=== PATIENT | male | born 1975 | race Caucasian/White ===

== ENCOUNTER → 2017-10-13 | Outpatient (CLI) | payer MEDICAID ==
--- NOTE | 2017-10-13 16:41 | US ---
EXAMINATION TYPE: US kidneys/renal and bladder DATE OF EXAM: 10/13/2017 COMPARISON: US CLINICAL HISTORY: R80.9 Proteinuria; left flank pain x months EXAM MEASUREMENTS: Right Kidney: 11.0 x 5.9 x 4.5 cm Left Kidney: 10.6 x 5.5 x 6.0 cm Post Void Residual Volume: 7.3 mL Right Kidney: No hydronephrosis or masses seen Left Kidney: No hydronephrosis or masses seen Bladder: wnl Bilateral Jets seen: Yes Normal Post Void Residual: Yes There is no evidence for hydronephrosis at this point in time. No nephrolithiasis is seen. No shannon s are identified. The urinary bladder is anechoic. Bilateral ureteral jets are seen. IMPRESSION: No evidence of renal mass or obstruction. Postvoid estimated bladder volume is 17 mL.
== END | disposition home or self-care (01) ==
LOC: RADUSWWP 15:46
PROVIDERS: ATTEND Family Medicine
DX: R80.9 Proteinuria, unspecified (principal)
CPT/HCPCS: 76770

== ENCOUNTER → 2018-01-26 | Outpatient (CLI) | payer OTHER ==
--- NOTE | 2018-01-26 15:53 | XR ---
Right clavicle HISTORY: Trauma and pain 2 views of the right clavicle There is a mid diaphyseal right clavicle fracture with bayonet apposition. Right lung apex as visuali zed is normal. IMPRESSION: Mid diaphyseal right clavicular fracture
== END | disposition home or self-care (01) ==
LOC: RADXRMAIN 15:31
PROVIDERS: ATTEND Internal Medicine
DX: S42.021A Displaced fracture of shaft of right clavicle, initial encounter for closed fracture (principal)

== ENCOUNTER 2018-07-22 15:50 | Emergency (ER) | payer OTHER ==
[2018-07-22 15:57] VITALS: RESP 18
--- NOTE | 2018-07-22 16:19 | ED ---
General Adult HPI - General Source: patient, EMS, RN notes reviewed, old records reviewed Mode of arrival: EMS Limitations: no limitations <Cristian Henriquez - Last Filed: 07/23/18 00:23> <Esteban Foster - Last Filed: 07/23/18 09:50> - General Stated complaint: Chest pain - History of Present Illness Initial comments: Chief complaint and history of present illness a 42-year-old male here for complaint of right-sided chest pain. The patient reports this started at 4 AM yesterday morning. Patient reports he had the pain control at time he received a sublingual nitroglycerin by EMS. Patient denies any injuries. His pain is very reproducible with a deep breath patient or coughing to the right anterior axillary line around approximately rib 89 or 10. Patient denies any injuries or falling. The patient also reports that he drinks one fifth of alcohol daily. His breath alcohol is 0.371. He otherwise alert and oriented. ( Cristian Henriquez) - Related Data Previous Rx's Medication Instructions Recorded Famotidine [Pepcid] 40 mg PO DAILY #30 tab 08/01/17 Gabapentin [Neurontin] 400 mg PO TID #90 cap 08/01/17 Naltrexone HCl [Revia] 50 mg PO DAILY #30 tab 08/01/17 Naproxen [Naprosyn] 500 mg PO BID #60 tab 08/01/17 Nicotine 21Mg/24Hr Patch [Habitrol] 1 patch TRANSDERM DAILY #30 patch 08/01/17 PARoxetine [Paxil] 40 mg PO DAILY #30 tab 08/01/17 busPIRone HCl [Buspar] 10 mg PO TID #90 tab 08/01/17 hydrOXYzine PAMOATE [Vistaril] 25 mg PO TID PRN #90 cap 08/01/17 traZODone HCL [Desyrel] 150 mg PO HS #30 tab 08/01/17 Allergies Allergy/AdvReac Type Severity Reaction Status Date / Time No Known Allergies Allergy Verified 07/22/18 15:58 Review of Systems ROS Other: All systems not noted in ROS Statement are negative. <Cristian Henriquez - Last Filed: 07/23/18 00:23> ROS Other: All systems not noted in ROS Statement are negative. <Esteban Foster - Last Filed: 07/23/18 09:50> ROS Statement: Those systems with pertinent positive or pertinent negative responses have been documented in the HPI. Review of systems. Patient's denying any headache no visual acuity changes no neck pain no dizziness. States she's had chest pain since 4 AM yesterday. Denies injury. Point specific to palm-sized area to the right anterior axillary line mid chest field. No bruises are noted on direct observation. He reports a deep breath increases the pain splinting does not change it. Denies any productive cough or fever of late. Denies back pain denies nausea vomiting diarrhea otherwise no radiation of chest pain. No sweats with this chest pain. But he does note that the pain subsided after a sublingual nitroglycerin. All systems are reviewed. Past medical problems hypertension for which he does not take any medications. Does not give a reason as to why he is not taking them. Past history also includes heroin abuse which he denies having done lately. He denies any surgeries. Family history his mother had kidney cancer. The patient does smoke heavily strongly encouraged to stop. He does report drinking a fifth of alcohol daily. The patient states she's been through rehab 7 times. (Cristian Henriquez) Past Medical History Past Medical History: Hypertension Additional Past Medical History / Comment(s): ETOH abuse, alcohol withdrawal with seizure 2014, Pt states recently told he has a "black spot" he believes on L lung which showed on a recent cat scan done in [facility]-he was to follow up but did not, chronic back pain. History of Any Multi-Drug Resistant Organisms: MRSA Date of last positivie culture/infection: 2004 MDRO Source:: left antecubital space secondary to heroine use Past Surgical History: No Surgical Hx Reported Additional Past Surgical History / Comment(s): Nasal surgery at the age of 11 yrs, cyst removed from LAC. Past Anesthesia/Blood Transfusion Reactions: No Reported Reaction Past Psychological History: Anxiety, Depression, Panic Disorder Smoking Status: Current every day smoker Past Alcohol Use History: Abuse, Daily, Heavy Past Drug Use History: None Reported - Past Family History Father Additional Family Medical History / Comment(s): father and his brothers ETOH hx Mother Family Medical History: Cancer Additional Family Medical History / Comment(s): Mother of renal cancer at the age of 60yrs. <Cristian Henriquez - Last Filed: 07/23/18 00:23> General Exam Limitations: no limitations <MartinezCristian - Last Filed: 07/23/18 00:23> <Esteban Foster - Last Filed: 07/23/18 09:50> - General Exam Comments Initial Comments: General: The patient is awake and alert, para complaint right-sided chest pain ongoing since 4 AM yesterday morning. Reproducible with palpation coughing and deep breathing. Vital signs show temperature 98.6 pulse 104 respiratory rate 18 pulse ox 97% room air blood pressure 122/97. Eye: Pupils are equal, round and reactive to light, extra-ocular movements are intact ; there is normal conjunctiva bilaterally. No signs of icterus. Ears, nose, mouth and throat: There are moist mucous membranes and no oral lesions. Neck: The neck is supple, there is no tenderness, no anterior cervical lymphadenopathy , thyroid not enlarged. Cardiovascular: There is a regular rate and rhythm. No murmur, rub or gallop is appreciated. Respiratory: Pain to the right side of the chest which increases with outpatient increases significantly with coughing or very deep breathing. Does not decrease with splinting the area. No rash noted over the area no bruising noted over the area. Auscultation of lungs on the left normal. Auscultations on the right side , bronchovesicular. Patient splints on the right side because of pain with deep breathing and coughing. Gastrointestinal: Soft, non-distended, non-tender abdomen without masses or organomegaly noted. There is no rebound or guarding present. No CVA tenderness. Bowel sounds are unremarkable. Back: There is no tenderness to palpation in the midline. There is no obvious deformity. No rashes noted. Musculoskeletal: Normal ROM, no tenderness, There is no pedal edema. There is no calf tenderness or swelling. Sensation intact. Neurological: No neuro deficits noted none complained of. Patient's chronic alcoholic. Drinks a fifth of alcohol daily. He had answers questions appropriately without difficulty. Denies any balance problems. breath alcohol at bedside was 0.371. Skin: Skin is warm and dry and no rashes or lesions are noted. Psychiatric: Cooperative, has history of depression, states he is having suicidal thoughts. (Cristian Henriquez) Course <Cristian Henriquez - Last Filed: 07/23/18 00:23> <Esteban Foster - Last Filed: 07/23/18 09:50> Vital Signs 07/22/18 07/22/18 07/22/18 15:53 18:00 19:00 Temperature 98.6 F Pulse Rate 104 H 88 88 Respiratory 18 18 18 Rate Blood Pressure 122/97 147/87 138/87 O2 Sat by Pulse 97 99 99 Oximetry 07/22/18 07/22/18 07/22/18 20:39 22:27 23:21 Temperature 98.2 F Pulse Rate 89 87 100 Respiratory 18 18 18 Rate Blood Pressure 172/108 133/100 142/97 O2 Sat by Pulse 100 98 95 Oximetry - Reevaluation(s) Reevaluation #1: 07/23/18 09:48 The patient rested comfortably throughout the morning he was evaluated by the psychiatric service he currently is not suicidal or homicidal be discharged ( Esteban Foster) EKG Findings - EKG Comments: EKG Findings:: EKG was done and reviewed at 1610 showing normal sinus rhythm no acute ST elevation no ectopy no ischemic changes. Rate 93 MN interval is 134 QRS 78 QT 368 QTc 457. Currently no old EKG to compare to. Dr. Henriquez <Cristian Henriquez - Last Filed: 07/23/18 00:23> Medical Decision Making - Lab Data Result diagrams: 07/22/18 16:10 07/22/18 16:10 <Cristian Henriquez - Last Filed: 07/23/18 00:23> - Lab Data Result diagrams: 07/22/18 16:10 07/22/18 16:10 <Esteban Foster - Last Filed: 07/23/18 09:50> - Medical Decision Making Medical decision making; 42-year-old male here for complaint of right-sided chest pain which is reproducible by deep breathing coughing and palpation. Patient denies any recent trauma. Patient has chronic alcohol abuse. States he drinks one fifth of alcohol daily. Splint for rehab 7 times. Current breath alcohol at bedside is 0.371. The patient's answering questions appropriately. Patient's labs show white count of 8.4 hemoglobin 14 hematocrit of 45 with a potassium 3.8. BUN 6 creatinine 0.55 the GFR greater than 90. AST ALT elevated. Drug urine triage positive for marijuana. CK-MB and troponin normal. Chest x-ray was done reviewed by radiologist his impression is;fracture of the right fourth rib minimally displaced with no pneumothorax. As read by Dr. Wilson. D-dimer elevated at 1.41. CT of the chest was done to rule out PE. The radiologist's findings include the lungs are clear consolidation. There is no evidence of pulmonary mass. There is no pleural effusion. Heart size is normal. There is no pericardial effusion. There are small linear density at the lung bases consistent with subsegmental atelectasis. There are small interstitial infiltrates the right posterior lung base. There is a fatty infiltration of the liver. There is no hilar masses. There is no mediastinal adenopathy. There is normal contrast opacification of the pulmonary arteries. There is no filling defects. Thoracic aorta shows normal size. There is no aneurysm or dissection. Bony thorax appears intact. Impression mild interstitial infiltrate and atelectasis at the lung bases and more on the right side. Fatty infiltration of the liver. No evidence of pulmonary embolism. As read by Dr. Yin Discuss acute rib fracture. as well as a CAT scan. The patient may also be having pleuritic irritation as evidenced by the discomfort he has even while splinting the area. The patient denies being suicidal or depressed this time. The plans for the patient to be placed on antibiotic for possible early infiltrate is noted on the CAT scan. Patient advised to curtail his drinking, consider rehab one more time. Or Alcoholics Anonymous. Otherwise follow-up with family physician and also consider stopping smoking. Patient was given his first dose of Levaquin in the emergency room. Patient will be seen by psychiatric nurse at 8 AM when his breath alcohol level drops to 0.08. I discussed with the patient at length pleuritic pain and the possibility of early small pneumonic infiltrate. The plan for the patient be placed on Levaquin as an outpatient should he be discharged after talking to a psychiatric nurse or if hospitalized patient will be kept on Levaquin while in house. Again the patient this time is denying thoughts of harming himself. Patient did receive Ativan per alcohol protocol (Cristian Henriquez) - Lab Data Lab Results 07/22/18 07/22/18 07/22/18 Range/Units 16:10 16:10 16:10 WBC 8.4 (3.8-10.6) k/uL RBC 4.69 (4.30-5.90) m/uL Hgb 14.5 (13.0-17.5) gm/dL Hct 45.6 (39.0-53.0) % MCV 97.2 (80.0-100.0) fL MCH 30.8 (25.0-35.0) pg MCHC 31.7 (31.0-37.0) g/dL RDW 13.8 (11.5-15.5) % Plt Count 288 (150-450) k/uL Neutrophils % 55 % Lymphocytes % 33 % Monocytes % 5 % Eosinophils % 2 % Basophils % 1 % Neutrophils # 4.6 (1.3-7.7) k/uL Lymphocytes # 2.7 (1.0-4.8) k/uL Monocytes # 0.4 (0-1.0) k/uL Eosinophils # 0.2 (0-0.7) k/uL Basophils # 0.1 (0-0.2) k/uL PT (9.0-12.0) sec INR (<1.2) APTT (22.0-30.0) sec D-Dimer (<0.60) mg/L FEU Sodium 144 (137-145) mmol/L Potassium 3.8 (3.5-5.1) mmol/L Chloride 107 (98-107) mmol/L Carbon Dioxide 26 (22-30) mmol/L Anion Gap 11 mmol/L BUN 6 L (9-20) mg/dL Creatinine 0.55 L (0.66-1.25) mg/dL Est GFR (CKD-EPI)AfAm >90 (>60 ml/min/1.73 sqM) Est GFR (CKD-EPI)NonAf >90 (>60 ml/min/1.73 sqM) Glucose 92 (74-99) mg/dL Calcium 8.9 (8.4-10.2) mg/dL Magnesium 1.9 (1.6-2.3) mg/dL Total Bilirubin 0.4 (0.2-1.3) mg/dL AST 179 H (17-59) U/L ALT 102 H (21-72) U/L Alkaline Phosphatase 70 (38-126) U/L Total Creatine Kinase 45 L (55-170) U/L CK-MB (CK-2) <0.2 (0.0-2.4) ng/mL CK-MB (CK-2) Rel Index Troponin I <0.012 (0.000-0.034) ng/mL Total Protein 6.8 (6.3-8.2) g/dL Albumin 4.1 (3.5-5.0) g/dL Urine Opiates Screen (NotDetected) Ur Oxycodone Screen (NotDetected) Urine Methadone Screen (NotDetected) Ur Propoxyphene Screen (NotDetected) Ur Barbiturates Screen (NotDetected) U Tricyclic Antidepress (NotDetected) Ur Phencyclidine Scrn (NotDetected) Ur Amphetamines Screen (NotDetected) U Methamphetamines Scrn (NotDetected) U Benzodiazepines Scrn (NotDetected) Urine Cocaine Screen (NotDetected) U Marijuana (THC) Screen (NotDetected) 07/22/18 07/22/18 Range/Units 16:10 16:10 WBC (3.8-10.6) k/uL RBC (4.30-5.90) m/uL Hgb (13.0-17.5) gm/dL Hct (39.0-53.0) % MCV (80.0-100.0) fL MCH (25.0-35.0) pg MCHC (31.0-37.0) g/dL RDW (11.5-15.5) % Plt Count (150-450) k/uL Neutrophils % % Lymphocytes % % Monocytes % % Eosinophils % % Basophils % % Neutrophils # (1.3-7.7) k/uL Lymphocytes # (1.0-4.8) k/uL Monocytes # (0-1.0) k/uL Eosinophils # (0-0.7) k/uL Basophils # (0-0.2) k/uL PT 9.7 (9.0-12.0) sec INR 0.9 (<1.2) APTT 22.6 (22.0-30.0) sec D-Dimer 1.41 H (<0.60) mg/L FEU Sodium (137-145) mmol/L Potassium (3.5-5.1) mmol/L Chloride (98-107) mmol/L Carbon Dioxide (22-30) mmol/L Anion Gap mmol/L BUN (9-20) mg/dL Creatinine (0.66-1.25) mg/dL Est GFR (CKD-EPI)AfAm (>60 ml/min/1.73 sqM) Est GFR (CKD-EPI)NonAf (>60 ml/min/1.73 sqM) Glucose (74-99) mg/dL Calcium (8.4-10.2) mg/dL Magnesium (1.6-2.3) mg/dL Total Bilirubin (0.2-1.3) mg/dL AST (17-59) U/L ALT (21-72) U/L Alkaline Phosphatase (38-126) U/L Total Creatine Kinase (55-170) U/L CK-MB (CK-2) (0.0-2.4) ng/mL CK-MB (CK-2) Rel Index Troponin I (0.000-0.034) ng/mL Total Protein (6.3-8.2) g/dL Albumin (3.5-5.0) g/dL Urine Opiates Screen Not Detected (NotDetected) Ur Oxycodone Screen Not Detected (NotDetected) Urine Methadone Screen Not Detected (NotDetected) Ur Propoxyphene Screen Not Detected (NotDetected) Ur Barbiturates Screen Not Detected (NotDetected) U Tricyclic Antidepress Not Detected (NotDetected) Ur Phencyclidine Scrn Not Detected (NotDetected) Ur Amphetamines Screen Not Detected (NotDetected) U Methamphetamines Scrn Not Detected (NotDetected) U Benzodiazepines Scrn Not Detected (NotDetected) Urine Cocaine Screen Not Detected (NotDetected) U Marijuana (THC) Screen Detected H (NotDetected) Disposition <Cristian Henriquez - Last Filed: 07/23/18 00:23> Is patient prescribed a controlled substance at d/c from ED?: No <Esteban Foster - Last Filed: 07/23/18 09:50> Clinical Impression: Alcohol intoxication, Adjustment disorder, Chest wall pain Disposition: HOME SELF-CARE Condition: Good Instructions: Chest Pain (ED), Abuse of Alcohol (ED), Alcohol Intoxication (ED) , Mood Disorders (ED) Referrals: Danielle Honeycutt MD [Primary Care Provider] - 1-2 days
[2018-07-22 16:34] LABS: Basophils # (A) 0.1 k/uL (0-0.2); Basophils % (A) 1 %; Eosinophils # (A) 0.2 k/uL (0-0.7); Eosinophils % (A) 2 %; HCT 45.6 % (39.0-53.0); HGB 14.5 gm/dL (13.0-17.5); Lymphocytes # (A) 2.7 k/uL (1.0-4.8); Lymphocytes % (A) 33 %; MCH 30.8 pg (25.0-35.0); MCHC 31.7 g/dL (31.0-37.0); MCV 97.2 fL (80.0-100.0); Mean Platelet Volume 7.1; Monocytes # (A) 0.4 k/uL (0-1.0); Monocytes % (A) 5 %; Neutrophils # (A) 4.6 k/uL (1.3-7.7); Neutrophils % (A) 55 %; Platelet Count 288 k/uL (150-450); RBC 4.69 m/uL (4.30-5.90); RDW 13.8 % (11.5-15.5); WBC 8.4 k/uL (3.8-10.6)
[2018-07-22 16:43] LABS: Amphetamine Screen,Urine Not Detected (NotDetected); Barbiturate Screen,Urine Not Detected (NotDetected); Benzodiazepines Screen,Urine Not Detected (NotDetected); Cocaine Screen,Urine Not Detected (NotDetected); Methadone Screen, Urine Not Detected (NotDetected); Opiate Screen,Urine Not Detected (NotDetected); Oxycodone Screen, Urine Not Detected (NotDetected); Phencyclidine Screen,Urine Not Detected (NotDetected); Tricyclic Antidepressant,Urine Not Detected (NotDetected); Urn Cannabinoid Scrn Detected (NotDetected)
[2018-07-22 16:47] LABS: ALT 102 U/L (21-72); AST 179 U/L (17-59); Albumin 4.1 g/dL (3.5-5.0); Alkaline Phosphatase 70 U/L (38-126); Anion Gap 11 mmol/L; Blood Urea Nitrogen 6 mg/dL (9-20); Calcium 8.9 mg/dL (8.4-10.2); Carbon Dioxide 26 mmol/L (22-30); Chloride 107 mmol/L (98-107); Glucose 92 mg/dL (74-99); Magnesium 1.9 mg/dL (1.6-2.3); Potassium 3.8 mmol/L (3.5-5.1); Sodium 144 mmol/L (137-145); Total Bilirubin 0.4 mg/dL (0.2-1.3); Total Protein 6.8 g/dL (6.3-8.2)
[2018-07-22 16:48] LABS: Creatine Kinase 45 U/L (55-170)
[2018-07-22 16:52] LABS: INR 0.9 (<1.2); Partial Thromboplastin Time 22.6 sec (22.0-30.0); Prothrombin Time 9.7 sec (9.0-12.0)
[2018-07-22 16:59] LABS: Creatine Kinase MB <0.2 ng/mL (0.0-2.4); Troponin I <0.012 ng/mL (0.000-0.034)
--- NOTE | 2018-07-22 17:12 | XR ---
Chest x-ray with right RIBS HISTORY: Right-sided rib pain Frontal view of the chest, 3 views of the right ribs correlated prior chest x-ray 05/02/2014 Cardiac mediastinal silhouette, pulmonary vascularity and elayne are stable. No evident pneumothorax, p leural effusion, or airspace disease. 1 View shows posterior rib fracture with minimal displacement a lthough there is overlying tubing at the fourth rib posteriorly. IMPRESSION: Minimally displaced posterior right fourth rib fractures are suspected, correlate. Bone scan may be of increased sensitivity.
[2018-07-22 18:15] LABS: D-Dimer 1.41 mg/L FEU (<0.60)
--- NOTE | 2018-07-22 19:14 | CT ---
EXAMINATION TYPE: CT angio chest DATE OF EXAM: 07/22/2018 6:57 PM COMPARISON: None HISTORY: Right sided chest pain. Elevated d-dimer. CT DLP: 226 mGycm Automated exposure control for dose reduction was used. CONTRAST: CTA scan of the thorax is performed with IV Contrast, patient injected with 65 mL of Isovue 370, pulm onary embolism protocol. There are 3-D post processed images.. FINDINGS: The lungs are clear of consolidation. There is no evidence of a pulmonary mass. There is no pleural e ffusion. Heart size is normal. There is no pericardial effusion. There are small linear density at th e lung bases consistent with subsegmental atelectasis. There are small interstitial infiltrate at the right posterior lung base. There is fatty infiltration of the liver. There is no hilar mass. There is no mediastinal adenopathy. There is normal contrast opacification of the pulmonary arteries. There are no filling defects. Thor acic aorta shows normal size. There is no aneurysm or dissection. Bony thorax appears intact. IMPRESSION: MILD INTERSTITIAL INFILTRATE AND ATELECTASIS AT THE LUNG BASES AND MORE ON THE RIGHT SIDE. FATTY INFI LTRATION OF THE LIVER. NO EVIDENCE OF PULMONARY EMBOLISM.
[2018-07-22] MEDS ORDERED: LORazepam 2 MG/ML INJ IV STA (20:43)
[2018-07-22] MEDS ORDERED: LEVOFLOXACIN 500MG-D5W PMX 500 MG in DEXTROSE/WATER 1 100ML.BAG IVPB STA (20:49)
[2018-07-22 20:51] VITALS: TEMP 98.2
[2018-07-22 23:22] VITALS: BP 142/97; PULSE 100
[2018-07-23] MEDS ORDERED: IBUPROFEN 600 MG TAB PO STA (01:03)
[2018-07-23] MEDS ORDERED: THIAMINE 100 MG/ML 2 ML VIAL IM STA (03:07)
[2018-07-23] MEDS ORDERED: LORazepam 2 MG/ML INJ IV PRN ×3 (03:07)
[2018-07-23] MEDS ORDERED: THIAMINE 100 MG TAB PO SCH (17:00)
== END 2018-07-23 10:15 | disposition home or self-care (01) ==
LOC: EC 15:50
DX: F10.129 Alcohol abuse with intoxication, unspecified (principal); F43.20 Adjustment disorder, unspecified; R07.89 Other chest pain; F17.200 Nicotine dependence, unspecified, uncomplicated
CPT/HCPCS: 82075; 36415; 93005; 85379; 80053; 82550; 82553; 83735; 84484; 85025; 85610; 85730; 80306; 71101; 71275; 99285; 96365; 96366; 96375 ×2; 96376; 96372; J2060 ×2; J3411; J1956; Q9967

== ENCOUNTER 2018-08-18 18:04 | Inpatient (IN) | payer OTHER ==
[2018-08-18] MEDS ORDERED: SODIUM CHLORIDE 0.9% 1,000 ML IV STA (18:54)
[2018-08-18] MEDS ORDERED: SODIUM CHLORIDE 0.9% 1,000 ML with POTASSIUM CHLORIDE 20 MEQ, MVI, ADULT NO.4 WITH VIT ... IV SCH ×5 (19:00)
[2018-08-18] MEDS ORDERED: SODIUM CHLORIDE 0.9% 1,000 ML with POTASSIUM CHLORIDE 20 MEQ, MVI, ADULT NO.4 WITH VIT ... IV ONE ×5 (19:01)
--- NOTE | 2018-08-18 19:36 | ED ---
Alcohol HPI - General Chief Complaint: Alcohol Stated Complaint: ETOH Time Seen by Provider: 08/18/18 18:29 Source: patient Mode of arrival: wheelchair Limitations: no limitations - History of Present Illness Initial Comments: 42-year-old male patient presents to the emergency department today after being found in the hospital lobby sleeping on a bench. Patient appeared to be quite intoxicated so he was brought here for further evaluation. Patient states that he came to the hospital because he is feeling suicidal and does not want to live anymore. Patient is admitted to drinking alcohol today. States he does have a history of suicide attempt, depression, and does take medication for this. Patient is a poor historian due to alcohol intoxication. Patient denies any recent rash, fever, chills, shortness breath, chest pain, abdominal pain, nausea, vomiting, diarrhea, constipation, back pain, numbness, tingling, dizziness, weakness, hematuria, dysuria, urinary urgency, urinary frequency, headache, visual changes, or any other complaints. - Related Data Previous Rx's Medication Instructions Recorded Famotidine [Pepcid] 40 mg PO DAILY #30 tab 08/01/17 Gabapentin [Neurontin] 400 mg PO TID #90 cap 08/01/17 Naltrexone HCl [Revia] 50 mg PO DAILY #30 tab 08/01/17 Naproxen [Naprosyn] 500 mg PO BID #60 tab 08/01/17 Nicotine 21Mg/24Hr Patch [Habitrol] 1 patch TRANSDERM DAILY #30 patch 08/01/17 PARoxetine [Paxil] 40 mg PO DAILY #30 tab 08/01/17 busPIRone HCl [Buspar] 10 mg PO TID #90 tab 08/01/17 hydrOXYzine PAMOATE [Vistaril] 25 mg PO TID PRN #90 cap 08/01/17 traZODone HCL [Desyrel] 150 mg PO HS #30 tab 08/01/17 Allergies Allergy/AdvReac Type Severity Reaction Status Date / Time No Known Allergies Allergy Verified 08/18/18 18:27 Review of Systems ROS Statement: Those systems with pertinent positive or pertinent negative responses have been documented in the HPI. ROS Other: All systems not noted in ROS Statement are negative. Past Medical History Past Medical History: Hypertension Additional Past Medical History / Comment(s): ETOH abuse, alcohol withdrawal with seizure 2014, Pt states recently told he has a "black spot" he believes on L lung which showed on a recent cat scan done in [facility]-he was to follow up but did not, chronic back pain. History of Any Multi-Drug Resistant Organisms: MRSA Date of last positivie culture/infection: 2004 MDRO Source:: left antecubital space secondary to heroine use Past Surgical History: No Surgical Hx Reported Additional Past Surgical History / Comment(s): Nasal surgery at the age of 11 yrs, cyst removed from LAC. Past Anesthesia/Blood Transfusion Reactions: No Reported Reaction Past Psychological History: Anxiety, Depression, Panic Disorder Smoking Status: Current every day smoker Past Alcohol Use History: Abuse, Daily, Heavy Past Drug Use History: None Reported - Past Family History Father Additional Family Medical History / Comment(s): father and his brothers ETOH hx Mother Family Medical History: Cancer Additional Family Medical History / Comment(s): Mother of renal cancer at the age of 60yrs. General Exam Limitations: no limitations General appearance: alert, in no apparent distress, appears intoxicated, other ( Physical well-developed, well-nourished adult male patient in no acute distress. Vital signs upon presentation are temperature 99.0F, pulse 97, respirations 14, blood pressure 132/94, pulse ox 94% on room air.) Eye exam: Present: normal appearance, PERRL, EOMI. Absent: scleral icterus, conjunctival injection, periorbital swelling ENT exam: Present: normal exam, normal oropharynx, mucous membranes moist Respiratory exam: Present: normal lung sounds bilaterally. Absent: respiratory distress, wheezes, rales, rhonchi, stridor Cardiovascular Exam: Present: regular rate, normal rhythm, normal heart sounds. Absent: systolic murmur, diastolic murmur, rubs, gallop, clicks GI/Abdominal exam: Present: soft, normal bowel sounds. Absent: distended, tenderness, guarding, rebound, rigid Neurological exam: Present: CN II-XII intact. Absent: alert (Drowsy), oriented X3 (Oriented 2) Psychiatric exam: Present: suicidal ideation, other (Intoxicated) Skin exam: Present: warm, dry, intact, normal color. Absent: rash Course Vital Signs 08/18/18 08/18/18 18:25 20:04 Temperature 99.0 F Pulse Rate 97 88 Respiratory 14 16 Rate Blood Pressure 132/94 120/80 O2 Sat by Pulse 94 L 95 Oximetry Medical Decision Making - Medical Decision Making 42-year-old male patient presents to the emergency department today for evaluation after being found in the hospital lobby sleeping on a bench. Patient was found to be intoxicated with alcohol level 477. His mildly hypoglycemic at 67. Other labs are unremarkable. Patient is Mat having suicidal ideation. States he does not want to live anymore. We'll admit for alcohol intoxication, provide Ativan for withdrawal. We'll consult psychiatric services. - Lab Data Result diagrams: 08/18/18 19:14 08/18/18 19:14 Lab Results 08/18/18 08/18/18 08/18/18 Range/Units 19:14 19:14 20:19 WBC 5.7 (3.8-10.6) k/uL RBC 4.93 (4.30-5.90) m/uL Hgb 15.8 (13.0-17.5) gm/dL Hct 46.3 (39.0-53.0) % MCV 93.9 (80.0-100.0) fL MCH 32.0 (25.0-35.0) pg MCHC 34.0 (31.0-37.0) g/dL RDW 14.1 (11.5-15.5) % Plt Count 118 L D (150-450) k/uL Neutrophils % 63 % Lymphocytes % 26 % Monocytes % 6 % Eosinophils % 1 % Basophils % 1 % Neutrophils # 3.6 (1.3-7.7) k/uL Lymphocytes # 1.5 (1.0-4.8) k/uL Monocytes # 0.3 (0-1.0) k/uL Eosinophils # 0.1 (0-0.7) k/uL Basophils # 0.1 (0-0.2) k/uL Sodium 141 (137-145) mmol/L Potassium 3.3 L (3.5-5.1) mmol/L Chloride 95 L (98-107) mmol/L Carbon Dioxide 25 (22-30) mmol/L Anion Gap 21 mmol/L BUN 10 (9-20) mg/dL Creatinine 0.55 L (0.66-1.25) mg/dL Est GFR (CKD-EPI)AfAm >90 (>60 ml/min/1.73 sqM) Est GFR (CKD-EPI)NonAf >90 (>60 ml/min/1.73 sqM) Glucose 71 L (74-99) mg/dL POC Glucose (mg/dL) 68 L (75-99) mg/dL POC Glu [employer] Yulia Sanchez Calcium 8.7 (8.4-10.2) mg/dL Phosphorus 5.5 H (2.5-4.5) mg/dL Magnesium 2.0 (1.6-2.3) mg/dL Total Bilirubin 0.8 (0.2-1.3) mg/dL AST 277 H (17-59) U/L ALT 111 H (21-72) U/L Alkaline Phosphatase 100 (38-126) U/L Total Protein 6.8 (6.3-8.2) g/dL Albumin 4.3 (3.5-5.0) g/dL Serum Alcohol 477 H* mg/dL 08/18/18 Range/Units 20:35 WBC (3.8-10.6) k/uL RBC (4.30-5.90) m/uL Hgb (13.0-17.5) gm/dL Hct (39.0-53.0) % MCV (80.0-100.0) fL MCH (25.0-35.0) pg MCHC (31.0-37.0) g/dL RDW (11.5-15.5) % Plt Count (150-450) k/uL Neutrophils % % Lymphocytes % % Monocytes % % Eosinophils % % Basophils % % Neutrophils # (1.3-7.7) k/uL Lymphocytes # (1.0-4.8) k/uL Monocytes # (0-1.0) k/uL Eosinophils # (0-0.7) k/uL Basophils # (0-0.2) k/uL Sodium (137-145) mmol/L Potassium (3.5-5.1) mmol/L Chloride (98-107) mmol/L Carbon Dioxide (22-30) mmol/L Anion Gap mmol/L BUN (9-20) mg/dL Creatinine (0.66-1.25) mg/dL Est GFR (CKD-EPI)AfAm (>60 ml/min/1.73 sqM) Est GFR (CKD-EPI)NonAf (>60 ml/min/1.73 sqM) Glucose (74-99) mg/dL POC Glucose (mg/dL) 69 L (75-99) mg/dL POC Glu [employer] TORI Abbie Torres Calcium (8.4-10.2) mg/dL Phosphorus (2.5-4.5) mg/dL Magnesium (1.6-2.3) mg/dL Total Bilirubin (0.2-1.3) mg/dL AST (17-59) U/L ALT (21-72) U/L Alkaline Phosphatase (38-126) U/L Total Protein (6.3-8.2) g/dL Albumin (3.5-5.0) g/dL Serum Alcohol mg/dL Disposition Clinical Impression: Alcohol intoxication, Suicidal ideation Disposition: ADMITTED IP TO THIS [facility] Condition: Serious Referrals: Danielle Honeycutt MD [Primary Care Provider] - 1-2 days Decision to Admit Reason: Admit from EC Decision Date: 08/18/18 Decision Time: 21:05
[2018-08-18 19:51] LABS: Basophils # (A) 0.1 k/uL (0-0.2); Basophils % (A) 1 %; Eosinophils # (A) 0.1 k/uL (0-0.7); Eosinophils % (A) 1 %; HCT 46.3 % (39.0-53.0); HGB 15.8 gm/dL (13.0-17.5); Lymphocytes # (A) 1.5 k/uL (1.0-4.8); Lymphocytes % (A) 26 %; MCV 93.9 fL (80.0-100.0); Mean Platelet Volume 7.8; Monocytes # (A) 0.3 k/uL (0-1.0); Monocytes % (A) 6 %; Neutrophils # (A) 3.6 k/uL (1.3-7.7); Neutrophils % (A) 63 %; RBC 4.93 m/uL (4.30-5.90); RDW 14.1 % (11.5-15.5); WBC 5.7 k/uL (3.8-10.6)
[2018-08-18 19:54] LABS: Platelet Count 118 k/uL (150-450)
[2018-08-18 20:02] LABS: ALT 111 U/L (21-72); AST 277 U/L (17-59); Albumin 4.3 g/dL (3.5-5.0); Alkaline Phosphatase 100 U/L (38-126); Anion Gap 21 mmol/L; Blood Urea Nitrogen 10 mg/dL (9-20); Calcium 8.7 mg/dL (8.4-10.2); Carbon Dioxide 25 mmol/L (22-30); Chloride 95 mmol/L (98-107); Glucose 71 mg/dL (74-99); Phosphorus 5.5 mg/dL (2.5-4.5); Potassium 3.3 mmol/L (3.5-5.1); Sodium 141 mmol/L (137-145); Total Bilirubin 0.8 mg/dL (0.2-1.3); Total Protein 6.8 g/dL (6.3-8.2)
[2018-08-18 20:13] LABS: Alcohol 477 mg/dL
[2018-08-18 20:21] LABS: Glucose,Whole Blood 68 mg/dL (75-99)
[2018-08-18 20:37] LABS: Glucose,Whole Blood 69 mg/dL (75-99)
[2018-08-18] MEDS ORDERED: NALOXONE 0.4 MG/ML 1 ML VIAL IV PRN (21:01)
[2018-08-18] MEDS ORDERED: THIAMINE 100 MG/ML 2 ML VIAL IM STA (21:03)
[2018-08-18] MEDS ORDERED: LORazepam 2 MG/ML INJ IV PRN (21:03)
[2018-08-18] MEDS ORDERED: POTASSIUM CHLORIDE ER 20 MEQ TAB.ER PO STA (21:04)
[2018-08-18] MEDS: THIAMINE 100 MG TAB PO SCH (21:12)
[2018-08-18 21:18] LABS: Glucose,Whole Blood 96 mg/dL (75-99)
[2018-08-18 23:20] LABS: Appearance,Urine Clear (Clear); Bilirubin,Urine Negative (Negative); Blood,Urine Negative (Negative); Color,Urine Yellow; Glucose,Urine (UA) Negative (Negative); Ketones,Urine 1+ (Negative); Leukocyte Esterase,Urine Negative (Negative); Nitrite,Urine Negative (Negative); PH, Urine 6.5 (5.0-8.0); Protein,Urine Trace (Negative); Specific Gravity,Urine 1.006 (1.001-1.035); Urobilinogen,Urine <2.0 mg/dL (<2.0)
[2018-08-18 23:34] LABS: Amphetamine Screen,Urine Not Detected (NotDetected); Barbiturate Screen,Urine Not Detected (NotDetected); Benzodiazepines Screen,Urine Not Detected (NotDetected); Cocaine Screen,Urine Not Detected (NotDetected); Methadone Screen, Urine Not Detected (NotDetected); Opiate Screen,Urine Detected (NotDetected); Oxycodone Screen, Urine Not Detected (NotDetected); Phencyclidine Screen,Urine Not Detected (NotDetected); Tricyclic Antidepressant,Urine Not Detected (NotDetected); Urn Cannabinoid Scrn Detected (NotDetected)
[2018-08-18 23:38] VITALS: BMI 25.1
[2018-08-19] MEDS ORDERED: NICOTINE 14MG/24HR PATCH TRANSDERM STA (00:04)
[2018-08-19] MEDS: LORazepam 2 MG/ML INJ IV PRN ×8 (01:34→22:51)
[2018-08-19] MEDS: THIAMINE 100 MG TAB PO SCH ×2 (08:34→15:51)
[2018-08-19] MEDS: NICOTINE 14MG/24HR PATCH TRANSDERM SCH (08:34)
[2018-08-19 09:46] LABS: ALT 119 U/L (21-72); AST 491 U/L (17-59); Albumin 3.1 g/dL (3.5-5.0); Alkaline Phosphatase 93 U/L (38-126); Anion Gap 9 mmol/L; Blood Urea Nitrogen 10 mg/dL (9-20); Calcium 8.5 mg/dL (8.4-10.2); Carbon Dioxide 30 mmol/L (22-30); Chloride 95 mmol/L (98-107); Glucose 120 mg/dL (74-99); Potassium 3.1 mmol/L (3.5-5.1); Sodium 134 mmol/L (137-145); Total Bilirubin 0.9 mg/dL (0.2-1.3); Total Protein 5.1 g/dL (6.3-8.2)
[2018-08-19] MEDS: CYCLOBENZAPRINE 5 MG TAB PO PRN ×2 (12:34→22:51)
[2018-08-19] MEDS ORDERED: traMADol 50 MG TAB PO PRN (15:33)
[2018-08-19] MEDS ORDERED: DIAZEPAM 5 MG TAB PO STA (16:02)
--- NOTE | 2018-08-19 16:09 | P.HPIM ---
History of Present Illness This is a pleasant 42 years old male with past medical history of hypertension, depression and alcohol abuse, seizure related to alcohol withdrawal 2015, chronic back pain. Patient states he presents because he was drinking heavily and he wanted to kill himself so he decided to come to the hospital he doesn't remember how he got to the hospital however they found him trunk down stairs in the hospital . Patient states he has history of depression but he is not on specific depression medication and he does not see psychiatrist although he was taking Zoloft and zubsolv 5.7-1.4 buprenorphine/naloxone drip to him by his PCP Dr. Morrow. Patient also complains from auditory hallucinations also complaining from pain all over but specifically and was both knees however patient denies trauma to his knees and they are not swollen or red. Patient drinks alcohol about half pint and a half H date and he smokes about 1 pack of cigarettes a day. However he denies any illicit drug use. Patient himself said he wants him to be admitted to the psychiatric unit after a medically cleared and then goes to the [facility]. Review of Systems CONSTITUTIONAL: No fever, no malaise, no fatigue. HEENT: No recent visual problems or hearing problems. Denied any sore throat. CARDIOVASCULAR: No orthopnea, PND, no palpitations, no syncope. PULMONARY: No shortness of breath, no cough, no hemoptysis. GASTROINTESTINAL: No diarrhea, no nausea, no vomiting, no abdominal pain. Normoactive bowel sounds. NEUROLOGICAL: No headaches, no weakness, no numbness. HEMATOLOGICAL: Denies any bleeding or petechiae. GENITOURINARY: Denies any burning micturition, frequency, or urgency. MUSCULOSKELETAL/RHEUMATOLOGICAL: Denies any joint pain, swelling, or any muscle pain. ENDOCRINE: Denies any polyuria or polydipsia. Past Medical History Past Medical History: Hypertension Additional Past Medical History / Comment(s): ETOH abuse, alcohol withdrawal with seizure 2014, Pt states recently told he has a "black spot" he believes on L lung which showed on a recent cat scan done in [facility]-he was to follow up but did not, chronic back pain, broken rib, been hearing voices History of Any Multi-Drug Resistant Organisms: MRSA Date of last positivie culture/infection: 2004 MDRO Source:: left antecubital space secondary to heroine use Past Surgical History: No Surgical Hx Reported Additional Past Surgical History / Comment(s): Nasal surgery at the age of 11 yrs, cyst removed from LAC. Past Anesthesia/Blood Transfusion Reactions: No Reported Reaction Past Psychological History: Anxiety, Depression, Panic Disorder Additional Psychological History / Comment(s): suicidal, homeless wanted to blow head off Smoking Status: Current every day smoker Past Alcohol Use History: Abuse, Daily, Heavy Additional Past Alcohol Use History / Comment(s): pt states drinks 1.5 5ths per day of vodka. He last drank last night. Pt states he last used IV heroin 3-4 yrs ago. Pt states he likes to smoke marijuana and if available, will smoke 3 joints a day. Past Drug Use History: None Reported, Marijuana Additional Drug Use History / Comment(s): See above. - Past Family History Father Additional Family Medical History / Comment(s): father and his brothers ETOH hx Mother Family Medical History: Cancer Additional Family Medical History / Comment(s): Mother of renal cancer at the age of 60yrs. Medications and Allergies Home Medications Medication Instructions Recorded Confirmed Type traZODone HCL [Desyrel] 150 mg PO HS #30 tab 08/01/17 08/19/18 Rx Albuterol Inhaler [Ventolin Hfa 2 puff INHALATION RT-QID 08/19/18 08/19/18 History Inhaler] Buprenorphine HCl/Naloxone HCl 1 tab SL TID 08/19/18 08/19/18 History [Zubsolv 5.7-1.4 mg Tablet Sl] Famotidine [Pepcid] 20 mg PO BID 08/19/18 08/19/18 History Naproxen [Naprosyn] 500 mg PO BID 08/19/18 08/19/18 History PARoxetine HCL [Paxil] 40 mg PO DAILY 08/19/18 08/19/18 History Ranitidine HCl 150 mg PO BID 08/19/18 08/19/18 History busPIRone HCL [Buspar] 15 mg PO BID 08/19/18 08/19/18 History Allergies Allergy/AdvReac Type Severity Reaction Status Date / Time No Known Allergies Allergy Verified 08/19/18 09:48 Physical Exam Vitals: Vital Signs Temp Pulse Pulse Resp BP BP Pulse Ox 08/19/18 14:47 98.9 F 104 H 16 159/87 97 08/19/18 08:40 98.8 F 100 16 105/69 90 L 08/18/18 22:39 98.3 F 92 15 107/69 94 L 08/18/18 22:09 98.8 F 81 16 121/75 95 08/18/18 20:04 88 16 120/80 95 08/18/18 18:25 99.0 F 97 14 132/94 94 L Intake and Output 08/19/18 08/19/18 08/19/18 06:59 14:59 22:59 Intake Total 1450 240 Balance 1450 240 Intake: Intake, IV Titration 600 Amount Sodium Chloride 0.9% 1, 600 000 ml @ 100 mls/hr IV . [id number] ONE with Potassium Chloride 20 meq with Mvi, Adult No.4 with Vit K 10 ml with Thiamine 100 mg with Folic Acid 1 mg Rx#: [id number] Oral 850 240 Other: Voiding Method Toilet Urinal # Voids 1 2 Weight 77.111 kg 77.111 kg GENERAL: The patient is alert and oriented x3, not in any acute distress. Well developed, well nourished. HEENT: Pupils are round and equally reacting to light. EOMI. No scleral icterus. No conjunctival pallor. Normocephalic, atraumatic. No pharyngeal erythema. No thyromegaly. CARDIOVASCULAR: S1 and S2 present. No murmurs, rubs, or gallops. PULMONARY: Chest is clear to auscultation, no wheezing or crackles. ABDOMEN: Soft, nontender, nondistended, normoactive bowel sounds. No palpable organomegaly. MUSCULOSKELETAL: No joint swelling or deformity. EXTREMITIES: No cyanosis, clubbing, or pedal edema. NEUROLOGICAL: Gross neurological examination did not reveal any focal deficits. SKIN: No rashes. Results CBC & Chem 7: 08/18/18 19:14 08/19/18 08:47 Labs: Abnormal Lab Results - Last 24 Hours (Table) 08/18/18 08/18/18 08/18/18 Range/Units 19:14 19:14 20:19 Plt Count 118 L D (150-450) k/uL Sodium (137-145) mmol/L Potassium 3.3 L (3.5-5.1) mmol/L Chloride 95 L (98-107) mmol/L Creatinine 0.55 L (0.66-1.25) mg/dL Glucose 71 L (74-99) mg/dL POC Glucose (mg/dL) 68 L (75-99) mg/dL Phosphorus 5.5 H (2.5-4.5) mg/dL AST 277 H (17-59) U/L ALT 111 H (21-72) U/L Total Protein (6.3-8.2) g/dL Albumin (3.5-5.0) g/dL Urine Protein (Negative) Urine Ketones (Negative) Urine Opiates Screen (NotDetected) U Marijuana (THC) Screen (NotDetected) Serum Alcohol 477 H* mg/dL 08/18/18 08/18/18 08/18/18 Range/Units 20:35 22:50 22:50 Plt Count (150-450) k/uL Sodium (137-145) mmol/L Potassium (3.5-5.1) mmol/L Chloride (98-107) mmol/L Creatinine (0.66-1.25) mg/dL Glucose (74-99) mg/dL POC Glucose (mg/dL) 69 L (75-99) mg/dL Phosphorus (2.5-4.5) mg/dL AST (17-59) U/L ALT (21-72) U/L Total Protein (6.3-8.2) g/dL Albumin (3.5-5.0) g/dL Urine Protein Trace H (Negative) Urine Ketones 1+ H (Negative) Urine Opiates Screen Detected H (NotDetected) U Marijuana (THC) Screen Detected H (NotDetected) Serum Alcohol mg/dL 08/19/18 Range/Units 08:47 Plt Count (150-450) k/uL Sodium 134 L (137-145) mmol/L Potassium 3.1 L (3.5-5.1) mmol/L Chloride 95 L (98-107) mmol/L Creatinine 0.58 L (0.66-1.25) mg/dL Glucose 120 H (74-99) mg/dL POC Glucose (mg/dL) (75-99) mg/dL Phosphorus (2.5-4.5) mg/dL AST 491 H (17-59) U/L ALT 119 H (21-72) U/L Total Protein 5.1 L (6.3-8.2) g/dL Albumin 3.1 L (3.5-5.0) g/dL Urine Protein (Negative) Urine Ketones (Negative) Urine Opiates Screen (NotDetected) U Marijuana (THC) Screen (NotDetected) Serum Alcohol mg/dL Thrombosis Risk Factor Assmnt - Choose All That Apply Any of the Below Risk Factors Present?: Yes Each Factor Represents 1 point: Age 41-60 years Other Risk Factors: No Other congenital or acquired thrombophilia - If yes, enter type in comment: No Thrombosis Risk Factor Assessment Total Risk Factor Score: 1 Thrombosis Risk Factor Assessment Level: Low Risk Assessment and Plan Assessment: Alcohol abuse Occluded withdrawal, risk of DT Suicidal ideation and auditory hallucination Generalized body pain bilateral knee pain, mostly related to his degenerative joint disease. History of depression Essential hypertension Chronic back pain Alcohol Withdrawal seizure, not on antiseizure medication Smoker Plan: This is a pleasant 42 years old male who presents because of suicidal attempts and alcohol abuse risk of alcohol withdrawal. Continue with CIWA protocol, continue with thiamine. Continue with vitamins. Sitter at bedside. Patient will need psychiatric evaluation. Pain management. Labs and medication were reviewed.. Continue same treatment. Continue with symptomatic treatment. Resume home medication. Monitor lytes and vitals. DVT and GI prophylaxis. Further recommendations of the clinical course of the patient DVT prophylaxis: Subcutaneous heparin GI Prophylaxis: Protonix Prognosis is guarded
[2018-08-19] MEDS: PANTOPRAZOLE 40 MG/10 ML VIAL IVP SCH (17:39)
[2018-08-19] MEDS: KETOROLAC 30 MG/ML 1 ML VIAL IVP PRN (19:41)
--- NOTE | 2018-08-19 20:06 | CONS ---
CONSULTATION DATE OF SERVICE: 08/19/2018 IDENTIFYING DATA: This patient is a 42-year-old male who was admitted to the hospital in acute alcohol withdrawal. We were asked to consult regarding suicidal statements he made. HISTORY OF PRESENT ILLNESS: The patient apparently was found sleeping on a hospital bench. He was brought into the emergency room. His alcohol level was discovered to be 477. Yesterday, he made statements that he wanted to kill himself. He is found on the 4th floor with a sitter at bedside. Nursing staff reports he has been cooperative. The patient is known to our inpatient service. He has at least 2 prior admissions. He indicates that he has been severely depressed and this has been worsening over the past 2 months. He states that he needs to go to a mental health unit or he will kill himself via drug overdose utilizing opioids or he will jump into traffic. He had been previously prescribed Paxil, BuSpar and trazodone by his primary care physician, Dr. Honeycutt. He states the trazodone causes vivid dreams, the Paxil did not help his depression. He feels the BuSpar may help. He has been off of his medication recently. He has been excessively using alcohol, consuming 1-1/2 fifths of vodka per day. He also had opiates in his system as well as marijuana. He is homeless. He has been "couch hopping." He is depressed, sad, hopeless, and has ongoing suicidal thoughts. He endorses no homicidal ideation. He is reporting visual hallucinations which would be expected with his current alcohol withdrawal. He is endorsing no specific delusions. He is not able to describe any hypomanic or manic episodes in the past. PAST PSYCHIATRIC HISTORY: He has had several inpatient admissions. The last ones on our mental health unit were April of 2014 and July of 2017. He has been also prescribed Remeron, Seroquel, Xanax, Zoloft, Ativan, Klonopin, Valium, BuSpar, Paxil, trazodone. He states Remeron has helped with sleep in the past. PAST FAMILY MEDICAL HISTORY: Hypertension. CHEMICAL DEPENDENCY HISTORY: He has alcohol and opiate use disorder as well as cannabis use disorder. He has been consuming 1-1/2 fifths of vodka per day. He did attend [facility] within the last year and states he remained sober for approximately 4 months afterwards. SOCIAL HISTORY: The patient is 42 years old. He is . He has no children. He has a high school education. Two brothers, 1 sister. He is homeless. No documented abuse history. He has a history of 3 DUIs in terms of legal history. MENTAL STATUS EXAM: The patient is a male appearing older than his stated age. He has overgrown hair. His walter is longer and unkempt. He is wearing eyeglasses. He is grossly diaphoretic. He demonstrates a pronounced tremor with outstretched hands. His fingernails are visibly dirty. He is quite thin. He is covered up to his waist in a sheet and is not wearing a shirt. Eye contact is intermittent. He was cooperative. He maintains a bland affect. He endorses a depressed mood with ongoing suicidal thoughts. He endorses no homicidal ideation. He describes visual hallucinations such as seeing the clock on the wall moving erratically. He is endorsing no auditory hallucinations. He is endorsing no specific delusions and indicates he feels safe in the hospital. He indicates he would not harm himself in the hospital as he knows he can receive help here. He demonstrates no verbal or physical aggressiveness. He is oriented to person, place as hospital, day of the week as Tuesday. IMPRESSIONS: 1. Delirium secondary to alcohol withdrawal with visual hallucinations, history of major depressive disorder, alcohol use disorder, opiate use disorder, cannabis use disorder. 2. Medical comorbidities include hypertension. 3. No income, homelessness, limited support. PLAN: The patient requires continued medical stabilization as he is in acute alcohol withdrawal at this time. Once he has navigated through the alcohol withdrawal, he will be appropriate for transfer to the mental health unit for psychiatric stabilization. He is agreeable with this plan. He indicates he has no intentions of harming himself here in the hospital. I do not feel that he requires a product safety administrator to keep him safe in this facility. He is hoping to participate in inpatient chemical dependency treatment once discharged from the mental health unit. Continue [facility] protocol. JOE / LOYDA: [id number] /
[2018-08-19] MEDS: HEPARIN SODIUM,PORCINE 5,000 UNIT/ML 1 ML VIAL SQ SCH (20:27)
[2018-08-20] MEDS: LORazepam 2 MG/ML INJ IV PRN ×9 (01:28→23:21)
[2018-08-20] MEDS: KETOROLAC 30 MG/ML 1 ML VIAL IVP PRN ×4 (05:25→23:20)
[2018-08-20] MEDS ORDERED: DIAZEPAM 2 MG TAB PO ONE (08:00)
[2018-08-20] MEDS: THIAMINE 100 MG TAB PO SCH ×2 (08:38→15:41)
[2018-08-20] MEDS: MULTIVITAMINS, THERA 1 EACH TAB PO SCH (08:38)
[2018-08-20] MEDS: NICOTINE 14MG/24HR PATCH TRANSDERM SCH (08:38)
[2018-08-20] MEDS: FOLIC ACID 1 MG TAB PO SCH (08:38)
[2018-08-20] MEDS: HEPARIN SODIUM,PORCINE 5,000 UNIT/ML 1 ML VIAL SQ SCH ×2 (08:38→20:07)
[2018-08-20] MEDS: PANTOPRAZOLE 40 MG/10 ML VIAL IVP SCH (08:38)
[2018-08-20 09:38] LABS: Anion Gap 8 mmol/L; Basophils % (A) 1 %; Blood Urea Nitrogen 8 mg/dL (9-20); Calcium 9.1 mg/dL (8.4-10.2); Carbon Dioxide 31 mmol/L (22-30); Chloride 94 mmol/L (98-107); Eosinophils # (A) 0.1 k/uL (0-0.7); Eosinophils % (A) 2 %; Glucose 164 mg/dL (74-99); HCT 41.2 % (39.0-53.0); HGB 13.2 gm/dL (13.0-17.5); Lymphocytes # (A) 1.3 k/uL (1.0-4.8); Lymphocytes % (A) 31 %; MCH 30.7 pg (25.0-35.0); Monocytes # (A) 0.1 k/uL (0-1.0); Monocytes % (A) 2 %; Neutrophils # (A) 2.7 k/uL (1.3-7.7); Neutrophils % (A) 62 %; Potassium 2.9 mmol/L (3.5-5.1); RBC 4.29 m/uL (4.30-5.90); RDW 13.9 % (11.5-15.5); Sodium 133 mmol/L (137-145); WBC 4.3 k/uL (3.8-10.6)
[2018-08-20 09:59] LABS: Platelet Count 78 k/uL (150-450)
[2018-08-20] MEDS ORDERED: POTASSIUM CHLORIDE 2 MEQ/ML 20 ML VIAL IVPB ONE (11:15)
[2018-08-20] MEDS ORDERED: POTASSIUM CHLORIDE 20 MEQ in WATER FOR INJECTION 1 100ML.BAG IVPB ONE (12:00)
[2018-08-20] MEDS: POTASSIUM CHLORIDE ER 20 MEQ TAB.ER PO SCH ×2 (12:41→15:42)
[2018-08-20] MEDS ORDERED: DIAZEPAM 2 MG TAB PO STA (13:30)
[2018-08-20] MEDS: MAGNESIUM OXIDE 400 MG TAB PO SCH (20:08)
[2018-08-20] MEDS: CYCLOBENZAPRINE 5 MG TAB PO PRN (21:27)
--- NOTE | 2018-08-20 22:44 | P.PN ---
Subjective This is a pleasant 42 years old male with past medical history of hypertension, depression and alcohol abuse, seizure related to alcohol withdrawal 2014, chronic back pain. Patient states he presents because he was drinking heavily and he wanted to kill himself so he decided to come to the hospital he doesn't remember how he got to the hospital however they found him trunk down stairs in the hospital . Patient states he has history of depression but he is not on specific depression medication and he does not see psychiatrist although he was taking Zoloft and zubsolv 5.7-1.4 buprenorphine/naloxone drip to him by his PCP Dr. Morrow. Patient also complains from auditory hallucinations also complaining from pain all over but specifically and was both knees however patient denies trauma to his knees and they are not swollen or red. Patient drinks alcohol about half pint and a half H date and he smokes about 1 pack of cigarettes a day. However he denies any illicit drug use. Patient himself said he wants him to be admitted to the psychiatric unit after a medically cleared and then goes to the [facility]. 08/20/2018 Patient feels better today, saying that his pain controlled. He still feels depressed and suicidal and there sitter at bedside. He is able to tolerate diet. He still have shakiness and some symptoms of alcohol withdrawal although he admits is better than yesterday and he couldn't sleep. Give extra dose of benzodiazepine. Low potassiums been replaced today t Liver enzymes still high but keep monitoring, mostly secondary to alcohol effect. Follow-up magnesium level. once pt is cleared medically he should go to psych unit for his depression and suicidal ideation , pt wants to be treated at psych unit. Objective - Vital Signs Vital signs: Vital Signs Temp 97.8 F 08/20/18 07:00 Pulse 86 08/20/18 07:00 Resp 16 08/20/18 07:00 BP 133/86 08/20/18 07:00 Pulse Ox 97 08/20/18 07:00 Intake & Output 08/19/18 08/20/18 08/20/18 18:59 06:59 18:59 Intake Total 240 940 240 Balance 240 940 240 Weight 77.111 kg Intake: Oral 240 940 240 Other: Voiding Method Toilet Urinal # Voids 2 1 - Exam GENERAL: The patient is alert and oriented x3, not in any acute distress. Well developed, well nourished. HEENT: Pupils are round and equally reacting to light. EOMI. No scleral icterus. No conjunctival pallor. Normocephalic, atraumatic. No pharyngeal erythema. No thyromegaly. CARDIOVASCULAR: S1 and S2 present. No murmurs, rubs, or gallops. PULMONARY: Chest is clear to auscultation, no wheezing or crackles. ABDOMEN: Soft, nontender, nondistended, normoactive bowel sounds. No palpable organomegaly. MUSCULOSKELETAL: No joint swelling or deformity. EXTREMITIES: No cyanosis, clubbing, or pedal edema. Mild to tremor on both hands NEUROLOGICAL: Gross neurological examination did not reveal any focal deficits. SKIN: No rashes. - Labs CBC & Chem 7: 08/20/18 08:59 08/20/18 08:59 Labs: Abnormal Lab Results - Last 24 Hours (Table) 08/20/18 08/20/18 Range/Units 08:59 08:59 RBC 4.29 L (4.30-5.90) m/uL Plt Count 78 L (150-450) k/uL Sodium 133 L (137-145) mmol/L Potassium 2.9 L (3.5-5.1) mmol/L Chloride 94 L (98-107) mmol/L Carbon Dioxide 31 H (22-30) mmol/L BUN 8 L (9-20) mg/dL Creatinine 0.46 L (0.66-1.25) mg/dL Glucose 164 H (74-99) mg/dL Assessment and Plan Assessment: Alcohol abuse Occluded withdrawal, risk of DT Suicidal ideation and auditory hallucination Generalized body pain bilateral knee pain, mostly related to his degenerative joint disease. History of depression Essential hypertension Chronic back pain Alcohol Withdrawal seizure, not on antiseizure medication Smoker Plan: This is a pleasant 42 years old male who presents because of suicidal attempts and alcohol abuse risk of alcohol withdrawal. Continue with CIWA protocol, continue with thiamine. Continue with vitamins. Sitter at bedside. Patient will need psychiatric evaluation. Pain management. Labs and medication were reviewed.. Continue same treatment. Continue with symptomatic treatment. Resume home medication. Monitor lytes and vitals. DVT and GI prophylaxis. Further recommendations of the clinical course of the patient DVT prophylaxis: Subcutaneous heparin GI Prophylaxis: Protonix Prognosis is guarded
[2018-08-21] MEDS: LORazepam 2 MG/ML INJ IV PRN ×11 (01:45→22:49)
[2018-08-21] MEDS ORDERED: DIAZEPAM 2 MG TAB PO ONE (08:00)
[2018-08-21] MEDS: NICOTINE 14MG/24HR PATCH TRANSDERM SCH (08:12)
[2018-08-21] MEDS: MAGNESIUM OXIDE 400 MG TAB PO SCH ×2 (08:12→20:41)
[2018-08-21] MEDS: HEPARIN SODIUM,PORCINE 5,000 UNIT/ML 1 ML VIAL SQ SCH ×2 (08:12→20:41)
[2018-08-21] MEDS: PANTOPRAZOLE 40 MG/10 ML VIAL IVP SCH (08:12)
[2018-08-21 08:14] LABS: ALT 180 U/L (21-72); AST 413 U/L (17-59); Albumin 3.7 g/dL (3.5-5.0); Alkaline Phosphatase 138 U/L (38-126); Anion Gap 6 mmol/L; Bilirubin, Delta 0.3 mg/dL (0.0-0.2); Bilirubin,Unconjugated 0.5 mg/dL (0.0-1.1); Blood Urea Nitrogen 13 mg/dL (9-20); Calcium 9.7 mg/dL (8.4-10.2); Carbon Dioxide 28 mmol/L (22-30); Chloride 100 mmol/L (98-107); Glucose 101 mg/dL (74-99); Magnesium 1.6 mg/dL (1.6-2.3); Potassium 4.6 mmol/L (3.5-5.1); Sodium 134 mmol/L (137-145); Total Bilirubin 0.8 mg/dL (0.2-1.3); Total Protein 6.1 g/dL (6.3-8.2)
[2018-08-21] MEDS: KETOROLAC 30 MG/ML 1 ML VIAL IVP PRN ×3 (10:48→22:49)
[2018-08-21] MEDS: MULTIVITAMINS, THERA 1 EACH TAB PO SCH (12:42)
[2018-08-21] MEDS: FOLIC ACID 1 MG TAB PO SCH (12:42)
[2018-08-21] MEDS: THIAMINE 100 MG TAB PO SCH ×2 (12:42→17:07)
--- NOTE | 2018-08-21 15:57 | P.PN ---
Subjective 43-year-old admitted for alcohol withdrawal and the patient is supposed to go to psychiatric floor once cleared from medical perspective although patient is requiring Ativan every 2-3 hours. Patient has suicidal ideations when he came into the hospital. When evaluated the patient patient doesn't have any tremors as he just received Ativan. Constitutional: Denied any fatigue denied any fever. Cardio vascular: denied any chest pain, palpitations Gastrointestinal denied any nausea vomiting Pulmonary: Denied any shortness of breath cough Neurologic denied any new focal deficits All inpatient medications were reviewed and appropriate changes in these medications as dictated in the interval history and assessment and plan. Objective - Vital Signs Vital signs: Vital Signs Temp 98.3 F 08/21/18 07:00 Pulse 81 08/21/18 07:00 Resp 18 08/21/18 07:00 BP 159/77 08/21/18 07:00 Pulse Ox 99 08/21/18 07:00 Intake & Output 08/20/18 08/21/18 08/21/18 18:59 06:59 18:59 Intake Total 480 240 Balance 480 240 Intake: Oral 480 240 Other: Voiding Method Toilet Urinal # Voids 2 4 2 - Exam GENERAL: The patient is alert and oriented x3, not in any acute distress. Well developed, well nourished. HEENT: Pupils are round and equally reacting to light. EOMI. No scleral icterus. No conjunctival pallor. Normocephalic, atraumatic. No pharyngeal erythema. No thyromegaly. CARDIOVASCULAR: S1 and S2 present. No murmurs, rubs, or gallops. PULMONARY: Chest is clear to auscultation, no wheezing or crackles. ABDOMEN: Soft, nontender, nondistended, normoactive bowel sounds. No palpable organomegaly. MUSCULOSKELETAL: No joint swelling or deformity. EXTREMITIES: No cyanosis, clubbing, or pedal edema. Mild to tremor on both hands NEUROLOGICAL: Gross neurological examination did not reveal any focal deficits. SKIN: No rashes. - Labs CBC & Chem 7: 08/20/18 08:59 08/21/18 07:13 Labs: Abnormal Lab Results - Last 24 Hours (Table) 08/21/18 Range/Units 07:13 Sodium 134 L (137-145) mmol/L Creatinine 0.51 L (0.66-1.25) mg/dL Glucose 101 H (74-99) mg/dL Delta Bilirubin 0.3 H (0.0-0.2) mg/dL AST 413 H (17-59) U/L ALT 180 H (21-72) U/L Alkaline Phosphatase 138 H (38-126) U/L Total Protein 6.1 L (6.3-8.2) g/dL Assessment and Plan Plan: Alcohol abuse: Counseling was provided Alcohol withdrawal, patient is on Ativan CIWA protocol continue with IV fluids. Suicidal ideation and auditory hallucination: Transfer to psychiatric floor once medically stable. -Alcoholic hepatitis expected to improve with the cessation of alcohol Generalized body pain bilateral knee pain, mostly related to his degenerative joint disease. History of depression Elevated blood pressure probably secondary to alcohol withdrawals suspicion is low that patient has essential hypertension Chronic back pain Alcohol Withdrawal seizure, continue with Ativan Smoker
[2018-08-21] MEDS: CYCLOBENZAPRINE 5 MG TAB PO PRN (17:16)
[2018-08-21] MEDS ORDERED: HALOPERIDOL LACTATE 5 MG/ML 1 ML VIAL IM PRN (22:10)
[2018-08-22] MEDS: LORazepam 2 MG/ML INJ IV PRN ×3 (01:47→21:33)
[2018-08-22] MEDS: NICOTINE 14MG/24HR PATCH TRANSDERM SCH (07:37)
[2018-08-22] MEDS: MAGNESIUM OXIDE 400 MG TAB PO SCH ×2 (07:37→19:55)
[2018-08-22] MEDS: CYCLOBENZAPRINE 5 MG TAB PO PRN ×2 (07:37→17:33)
[2018-08-22] MEDS: KETOROLAC 30 MG/ML 1 ML VIAL IVP PRN (07:38)
[2018-08-22] MEDS: HEPARIN SODIUM,PORCINE 5,000 UNIT/ML 1 ML VIAL SQ SCH ×2 (07:41→19:53)
[2018-08-22] MEDS ORDERED: PANTOPRAZOLE 40 MG TABLET PO SCH (07:45)
[2018-08-22 09:45] LABS: ALT 228 U/L (21-72); AST 363 U/L (17-59); Albumin 3.6 g/dL (3.5-5.0); Alkaline Phosphatase 166 U/L (38-126); Anion Gap 7 mmol/L; Bilirubin, Delta 0.2 mg/dL (0.0-0.2); Bilirubin,Unconjugated 0.3 mg/dL (0.0-1.1); Blood Urea Nitrogen 18 mg/dL (9-20); Calcium 9.7 mg/dL (8.4-10.2); Carbon Dioxide 23 mmol/L (22-30); Chloride 104 mmol/L (98-107); Glucose 128 mg/dL (74-99); Magnesium 1.8 mg/dL (1.6-2.3); Sodium 134 mmol/L (137-145); Total Bilirubin 0.5 mg/dL (0.2-1.3); Total Protein 5.9 g/dL (6.3-8.2)
[2018-08-22] MEDS: LORazepam 1 MG TAB PO PRN ×2 (10:59→19:55)
[2018-08-22] MEDS: THIAMINE 100 MG TAB PO SCH ×2 (12:50→17:32)
[2018-08-22] MEDS: MULTIVITAMINS, THERA 1 EACH TAB PO SCH (12:50)
[2018-08-22] MEDS: FOLIC ACID 1 MG TAB PO SCH (12:50)
--- NOTE | 2018-08-22 13:36 | P.PN ---
Subjective Progress Note Date: 08/22/18 Principal diagnosis: Major depressive disorder and alcohol use disorder severe Oh I came in the hospital because I'm suicidal and I suppose I need treatment and I'm willing to sign in voluntary to the psychiatric unit. Objective - Vital Signs Vital signs: Vital Signs Temp 98.1 F 08/22/18 06:48 Pulse 85 08/22/18 06:48 Resp 18 08/22/18 06:48 BP 118/78 08/22/18 06:48 Pulse Ox 99 08/22/18 06:48 Intake & Output 08/21/18 08/22/18 08/22/18 18:59 06:59 18:59 Intake Total 600 Balance 600 Intake: Oral 600 Other: # Voids 2 4 - Labs CBC & Chem 7: 08/20/18 08:59 08/22/18 08:59 Labs: Abnormal Lab Results - Last 24 Hours (Table) 08/22/18 Range/Units 08:59 Sodium 134 L (137-145) mmol/L Glucose 128 H (74-99) mg/dL AST 363 H (17-59) U/L ALT 228 H (21-72) U/L Alkaline Phosphatase 166 H (38-126) U/L Total Protein 5.9 L (6.3-8.2) g/dL Assessment and Plan (1) Suicidal ideation Narrative/Plan: HPI: Upon psychiatric evaluation, pt states that he has dealt with chronic depression since the early 1999s. States that he often self-medicates with drinking or doing illicit substances. Patient reports that his depression has progressively worsened in the past 1.5 years. His mother of cancer on 2016 and he had to subsequently move out of her house. He reports additional depressive symptoms of sleep disturbance (onset & maintenance), low appetite (improving since admission), low energy, poor concentration "hard time remembering things", (+) anhedonia, feelings of hopelessness and worthlessness. He reports continued SI at this time. States that their are no firearms in his home. Denies HI. Reports that he has heard "chattering" and seen shadows and stars in his peripheral vision at times; however, unsure if this is associated with alcohol use or withdrawal. PAST PSYCHIATRIC HISTORY: Previous psychiatric admission to [facility] x 1 and [facility] x 2, with most recent admission being in 2013 with diagnosis of Mood DO NOS, Alcohol Dependence and Opiate Dependence. Treated with Mirtazapine (worked well) and Seroquel XR. Other past psychotropic medications include Xanax, Paxil (worked well), Trazodone, Zoloft (doesn't work) , Buspar (worked well), Ativan, Klonopin, Valium, Ambien (doesn't work). No past suicide attempts. PMH: Hypertension ALLERGIES: NKDA MEDICATIONS: No home medications Mental status examination This is a 42-year-old casual appearing older than stated age lying in the hospital bed. Speech is slow monotone and soft attitude and behavior is cooperative mood is depressed anxious. Affect is flat constricted. Orientation person place and time and why he came the hospital which is suicidal. Thought content within normal, risk factors include his suicidal ideation when he was first hospitalized and currently. His thought content and process shows a somewhat concrete in nature tangential comments. Concentration and attention is impaired, recent memory within normal, remote memory within normal intelligence below average, judgment poor and insight poor. Psychiatric impression he should be transferred to the psychiatric unit 3 W. and is willing to sign in voluntary. Current Visit: Yes Status: Acute Priority: Low Code(s): R45.851 - SUICIDAL IDEATIONS SNOMED Code(s): 0334361 (2) Depression Current Visit: No Status: Acute Priority: High Code(s): F32.9 - MAJOR DEPRESSIVE DISORDER, SINGLE EPISODE, UNSPECIFIED SNOMED Code(s): 19449743 Time with Patient: Less than 30
[2018-08-22 14:45] VITALS: RESP 16; TEMP 98.2
--- NOTE | 2018-08-22 17:05 | P.PN ---
Subjective 43-year-old admitted for alcohol withdrawal and the patient is supposed to go to psychiatric floor once cleared from medical perspective although patient is requiring Ativan every 2-3 hours. Patient has suicidal ideations when he came into the hospital. When evaluated the patient patient doesn't have any tremors as he just received Ativan. 08/22/2018 Patient probably can be discharged to psychiatric floor as his requirements of Ativan has come down and is receiving Ativan less often than 4 hours. Constitutional: Denied any fatigue denied any fever. Cardio vascular: denied any chest pain, palpitations Gastrointestinal denied any nausea vomiting Pulmonary: Denied any shortness of breath cough Neurologic denied any new focal deficits All inpatient medications were reviewed and appropriate changes in these medications as dictated in the interval history and assessment and plan. Objective - Vital Signs Vital signs: Vital Signs Temp 98.2 F 08/22/18 14:44 Pulse 80 08/22/18 14:44 Resp 16 08/22/18 14:44 BP 114/74 08/22/18 14:44 Pulse Ox 95 08/22/18 14:44 Intake & Output 08/21/18 08/22/18 08/22/18 18:59 06:59 18:59 Intake Total 600 1200 Balance 600 1200 Weight 77.111 kg Intake: Oral 600 1200 Other: # Voids 2 4 3 - Exam GENERAL: The patient is alert and oriented x3, not in any acute distress. Well developed, well nourished. HEENT: Pupils are round and equally reacting to light. EOMI. No scleral icterus. No conjunctival pallor. Normocephalic, atraumatic. No pharyngeal erythema. No thyromegaly. CARDIOVASCULAR: S1 and S2 present. No murmurs, rubs, or gallops. PULMONARY: Chest is clear to auscultation, no wheezing or crackles. ABDOMEN: Soft, nontender, nondistended, normoactive bowel sounds. No palpable organomegaly. MUSCULOSKELETAL: No joint swelling or deformity. EXTREMITIES: No cyanosis, clubbing, or pedal edema. Mild to tremor on both hands NEUROLOGICAL: Gross neurological examination did not reveal any focal deficits. SKIN: No rashes. - Labs CBC & Chem 7: 08/20/18 08:59 08/22/18 08:59 Labs: Abnormal Lab Results - Last 24 Hours (Table) 08/22/18 Range/Units 08:59 Sodium 134 L (137-145) mmol/L Glucose 128 H (74-99) mg/dL AST 363 H (17-59) U/L ALT 228 H (21-72) U/L Alkaline Phosphatase 166 H (38-126) U/L Total Protein 5.9 L (6.3-8.2) g/dL Assessment and Plan Plan: Alcohol abuse: Counseling was provided Alcohol withdrawal, patient is on Ativan CIWA protocol continue with IV fluids. Patient is medically stable to be discharged to psychiatric floor Suicidal ideation and auditory hallucination: Transfer to psychiatric floor once medically stable. -Alcoholic hepatitis expected to improve with the cessation of alcohol Generalized body pain bilateral knee pain, mostly related to his degenerative joint disease. History of depression Elevated blood pressure probably secondary to alcohol withdrawals suspicion is low that patient has essential hypertension Chronic back pain Alcohol Withdrawal seizure, continue with Ativan Smoker
[2018-08-22 19:50] VITALS: BP 146/87; PULSE 76
--- NOTE | 2018-08-23 17:12 | P.DS ---
Providers Date of admission: 08/20/18 08:58 Expected date of discharge: 08/22/18 Attending physician: Katharine Ambriz Consults: 08/18/18 21:02 Consult Physician Routine Consulting Provider: Jacoby Montilla Consult Reason/Comments: Suicidal Ideation Do you want consulting provider notified?: Yes Primary care physician: Tangela Santos [facility] Course: please refer to my progress note for further details of discharge from the same day Patient Condition at Discharge: Serious Plan - Discharge Summary New Discharge Prescriptions: No Action traZODone HCL [Desyrel] 150 mg PO HS #30 tab Ranitidine HCl 150 mg PO BID PARoxetine HCL [Paxil] 40 mg PO DAILY Buprenorphine HCl/Naloxone HCl [Zubsolv 5.7-1.4 mg Tablet Sl] 1 tab SL TID busPIRone HCL [Buspar] 15 mg PO BID Naproxen [Naprosyn] 500 mg PO BID Famotidine [Pepcid] 20 mg PO BID Albuterol Inhaler [Ventolin Hfa Inhaler] 2 puff INHALATION RT-QID Discharge Medication List traZODone HCL [Desyrel] 150 mg PO HS #30 tab 08/01/17 [Rx] Albuterol Inhaler [Ventolin Hfa Inhaler] 2 puff INHALATION RT-QID 08/19/18 [ History] Buprenorphine HCl/Naloxone HCl [Zubsolv 5.7-1.4 mg Tablet Sl] 1 tab SL TID 08/19 [History] Famotidine [Pepcid] 20 mg PO BID 08/19/18 [History] Naproxen [Naprosyn] 500 mg PO BID 08/19/18 [History] PARoxetine HCL [Paxil] 40 mg PO DAILY 08/19/18 [History] Ranitidine HCl 150 mg PO BID 08/19/18 [History] busPIRone HCL [Buspar] 15 mg PO BID 08/19/18 [History] Follow up Appointment(s)/Referral(s): Danielle Honeycutt MD [Primary Care Provider] - 1-2 days Discharge Disposition: TRANSFER TO PSYCH HOSP/UNIT
== END 2018-08-22 22:02 | DRG 897 ==
LOC: EC 18:04 → 4SSUR 20:15 → OBSVTOIN 08-20 08:58
PROVIDERS: ADMIT Hospitalist; ATTEND Hospitalist
DX: F10.231 Alcohol dependence with withdrawal delirium (principal); Y90.8 Blood alcohol level of 240 mg/100 ml or more; E16.2 Hypoglycemia, unspecified; F17.210 Nicotine dependence, cigarettes, uncomplicated; G89.29 Other chronic pain; I10 Essential (primary) hypertension; M17.0 Bilateral primary osteoarthritis of knee; Z59.0 Homelessness; Z79.899 Other long term (current) drug therapy; Z80.51 Family history of malignant neoplasm of kidney; Z91.5 Personal history of self-harm; Z71.41 Alcohol abuse counseling and surveillance of alcoholic; K70.10 Alcoholic hepatitis without ascites; R56.9 Unspecified convulsions
CPT/HCPCS: 36415; 80048; 80053; 80076; 80306; 80320; 81003; 82075; 83735; 84100; 85025; 96365; 96366; 96372; 99284

== ENCOUNTER 2018-08-22 22:12 | Inpatient (IN) | payer MEDICAID ==
[2018-08-22] MEDS ORDERED: ACETAMINOPHEN TAB 325 MG TAB PO PRN (22:33)
[2018-08-22] MEDS ORDERED: MAG HYDROX/AL HYDROX/SIMETH 30 ML CUP PO PRN (22:33)
[2018-08-22] MEDS ORDERED: MAGNESIUM HYDROXIDE 2,400 MG/10 ML CUP PO PRN (22:33)
[2018-08-22] MEDS ORDERED: LORazepam 1 MG TAB PO PRN (22:33)
[2018-08-22] MEDS ORDERED: diphenhydrAMINE 50 MG CAP PO PRN (22:46)
[2018-08-23] MEDS ORDERED: diphenhydrAMINE 50 MG CAP ONE (03:46)
[2018-08-23] MEDS ORDERED: LORazepam 1 MG TAB ONE (03:46)
[2018-08-23] MEDS: FAMOTIDINE 20 MG TAB PO SCH ×2 (08:34→20:21)
[2018-08-23] MEDS: NAPROXEN 250 MG TAB PO SCH ×2 (08:34→20:21)
[2018-08-23] MEDS: NICOTINE 14MG/24HR PATCH TRANSDERM SCH (08:34)
[2018-08-23] MEDS: ALBUTEROL INHALER 60 PUFF/8 GM INHALER INHALATION SCH ×4 (09:12→21:00)
[2018-08-23] MEDS: LORazepam 1 MG TAB PO PRN ×3 (11:57→21:02)
--- NOTE | 2018-08-23 11:59 | P.HP ---
Psychiatric H&P - . History & Physical: Allergies Allergy/AdvReac Type Severity Reaction Status Date / Time No Known Allergies Allergy Verified 08/22/18 22:41 Vital Signs Temp 98.3 F 08/22/18 22:42 Pulse 124 H 08/23/18 09:06 Resp 18 08/23/18 09:06 BP 101/56 08/23/18 09:06 Pulse Ox Intake & Output 08/22/18 08/23/18 08/23/18 18:59 06:59 18:59 Weight 58.173 kg Laboratory Last Values Triglycerides 133 mg/dL (<150) 08/23/18 09:37 Cholesterol 205 mg/dL (<200) H 08/23/18 09:37 LDL Cholesterol, Calc 100 mg/dL (0-99) H 08/23/18 09:37 HDL Cholesterol 78 mg/dL (40-60) H 08/23/18 09:37 TSH 1.740 mIU/L (0.465-4.680) 08/23/18 09:37 08/23/18 11:51 IDENTIFYING DATA: This patient is a 42-year-old male who was admitted to the mental health unit from the medical floor for acute suicidal ideation. HPI: The patient was seen in psychiatric consultation by me on 08/19/2018. He presented to the hospital initially and was found sleeping on a bench his alcohol level was 477. He was admitted to the emergency room and then admitted to the medical floor for acute alcohol withdrawal symptoms. As his CIWA scores were high he was admitted to the ICU. When I met with him he was in acute alcohol withdrawal. He indicated he was suicidal and had plan of either overdosing on opiates or jumping into traffic. He states that his antidepressant medication Paxil was not working and felt even worse. His symptoms of depression had been worsening over 2 months. His primary care physician was prescribing Paxil BuSpar and trazodone. He has been excessively consuming alcohol and quantifies it as one and one half fifths a day of vodka. He also had opiates and marijuana in his system as well. He indicates that he is homeless and has been couch hopping. He reports feeling depressed sad hopeless tearful. No homicidal ideation. He is reporting auditory hallucinations in the form of shatter such as hearing children talked but he cannot make out any words. No command auditory hallucinations. He is endorsing no delusional thoughts. He states he is experiencing some visual hallucinations with the wall boarders moving. PAST PSYCHIATRIC HISTORY: The patient has had several inpatient admissions the last one on our mental health unit was July 2017 and prior to that April 2014. He reports over time he's been prescribed Remeron Seroquel Xanax Zoloft Ativan Klonopin Valium BuSpar Paxil trazodone. He states the Remeron helped with sleep in the past and he was given that while he was in skilled nursing but only for a brief time. He states trazodone causes vivid nightmares and he states Paxil seemed to worsen his depression. He has struggle with suicidal thoughts in the past but unknown if he's had any actual attempts. PMH: Hypertension ALLERGIES: NO KNOWN DRUG ALLERGIES MEDICATIONS: Refer to [facility] CHEMICAL DEPENDENCY HISTORY: The patient has an alcohol use disorder as noted above, history of opiate use disorder he states he's been sober from opiates for 7 years however they were in his urine drug screen and he reports he actively uses marijuana. He has been inpatient chemical dependency treatment numerous times in the past. FAMILY PSYCHIATRIC HISTORY: Unknown FAMILY CHEMICAL DEPENDENCY HISTORY: Unknown SOCIAL HISTORY: The patient is a 42-year-old male. He has no children he is homeless. He has a high school education. He has 2 brothers one sister. No report of abuse history he has a history of 3 DUIs. MENTAL STATUS EXAM: Patient is a shorter statured thin male appearing older than his stated age. He has a walter he wears eyeglasses. He is dressed in hospital attire. Throughout the interview he demonstrates tremulous activity of his upper extremities especially. He indicates feeling depressed sad and hopeless. He continues to have suicidal ideation no homicidal ideation intent or plan. He endorses auditory hallucinations as noted above he endorses visual hallucinations as noted above. He reports no delusional thought content. He was calm and cooperative he demonstrated no agitated behavior he demonstrated no tangential thinking loose associations or flight of ideas. He does not appear hypomanic or manic. Insight and judgment limited. He is oriented to person place he does not know the day the week he is able to name the month of the year. He is able to name the days of the week. STRENGTHS/WEAKNESSES: Strengths: Willingness to receive treatment voluntarily weaknesses: Alcohol use severe symptoms of depression INTELLECTUAL FUNCTIONING: Below average to average IMPRESSIONS: [] 1. 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 Medical comorbidities including hypertension 3. No income homeless limited support PLAN: The patient has been admitted to the mental health unit he is willing to sign in voluntarily. We reviewed his presenting symptoms and treatment options. We will initiate's Remeron 15 mg at bedtime for depression this may also assist with his sleep. Ativan will be available 1 mg every 4 hours as needed for alcohol withdrawal. Vital signs reviewed blood pressure stable he is tachycardic. He is encouraged to participate in the milieu once he feels physically better. We will monitor him for safety. He has called the access line to arrange inpatient chemical dependency treatment. He will be seen by internal medicine for routine history and physical exam.
[2018-08-23] MEDS: THIAMINE 100 MG TAB PO SCH (12:55)
[2018-08-23] MEDS: FOLIC ACID 1 MG TAB PO SCH (12:55)
--- NOTE | 2018-08-23 17:12 | P.CONS ---
History of Present Illness - Reason for Consult medical clearance - History of Present Illness 41-year-old the was discharged from my service as today after he was treated for all call withdrawal patient is still having minimal withdraws which the psychiatric floor will be able to manage at this time. Patient was having suicidal ideations. Patient was sleeping a bit lethargic today than any fever fever chills nausea vomiting abdominal pain. Review of Systems REVIEW OF SYSTEMS: CONSTITUTIONAL: No fever, no malaise, no fatigue. HEENT: No recent visual problems or hearing problems. Denied any sore throat. CARDIOVASCULAR: No chest pain, orthopnea, PND, no palpitations, no syncope. PULMONARY: No shortness of breath, no cough, no hemoptysis. GASTROINTESTINAL: No diarrhea, no nausea, no vomiting, no abdominal pain. NEUROLOGICAL: No headaches, no weakness, no numbness. HEMATOLOGICAL: Denies any bleeding or petechiae. GENITOURINARY: Denies any burning micturition, frequency, or urgency. MUSCULOSKELETAL/RHEUMATOLOGICAL: Denies any joint pain, swelling, or any muscle pain. ENDOCRINE: Denies any polyuria or polydipsia. The rest of the 14-point review of systems is negative. Past Medical History Past Medical History: Hypertension Additional Past Medical History / Comment(s): ETOH abuse, alcohol withdrawal with seizure 2014, Pt states recently told he has a "black spot" he believes on L lung which showed on a recent cat scan done in [facility]-he was to follow up but did not, chronic back pain, broken rib, been hearing voices History of Any Multi-Drug Resistant Organisms: MRSA Year Discovered:: 2004 MDRO Source:: left antecubital space secondary to heroine use Past Surgical History: No Surgical Hx Reported Additional Past Surgical History / Comment(s): Nasal surgery at the age of 11 yrs, cyst removed from LAC. Past Anesthesia/Blood Transfusion Reactions: No Reported Reaction Past Psychological History: Anxiety, Depression, Panic Disorder Additional Psychological History / Comment(s): suicidal, homeless wanted to blow head off Smoking Status: Current every day smoker Past Alcohol Use History: Abuse, Daily, Heavy Additional Past Alcohol Use History / Comment(s): pt states drinks 1.5 5ths per day of vodka. He last drank last night. Pt states he last used IV heroin 3-4 yrs ago. Pt states he likes to smoke marijuana and if available, will smoke 3 joints a day. Past Drug Use History: None Reported, Marijuana Additional Drug Use History / Comment(s): See above. - Past Family History Father Additional Family Medical History / Comment(s): father and his brothers ETOH hx Mother Family Medical History: Cancer Additional Family Medical History / Comment(s): Mother of renal cancer at the age of 60yrs. Medications and Allergies Home Medications Medication Instructions Recorded Confirmed Type traZODone HCL [Desyrel] 150 mg PO HS #30 tab 08/01/17 08/22/18 Rx Albuterol Inhaler [Ventolin Hfa 2 puff INHALATION RT-QID 08/19/18 08/22/18 History Inhaler] Buprenorphine HCl/Naloxone HCl 1 tab SL TID 08/19/18 08/22/18 History [Zubsolv 5.7-1.4 mg Tablet Sl] Famotidine [Pepcid] 20 mg PO BID 08/19/18 08/22/18 History Naproxen [Naprosyn] 500 mg PO BID 08/19/18 08/22/18 History PARoxetine HCL [Paxil] 40 mg PO DAILY 08/19/18 08/22/18 History Ranitidine HCl 150 mg PO BID 08/19/18 08/22/18 History busPIRone HCL [Buspar] 15 mg PO BID 08/19/18 08/22/18 History Allergies Allergy/AdvReac Type Severity Reaction Status Date / Time No Known Allergies Allergy Verified 08/22/18 22:41 Physical Exam Vitals: Vital Signs Temp Pulse Resp BP 08/23/18 11:58 106 H 20 96/69 08/23/18 09:06 124 H 18 101/56 08/23/18 03:43 82 14 101/59 08/22/18 22:42 98.3 F 113 H 16 101/76 PHYSICAL EXAMINATION: GENERAL: The patient is alert and oriented x3, not in any acute distress. Well developed, well nourished. HEENT: Pupils are round and equally reacting to light. EOMI. No scleral icterus. No conjunctival pallor. Normocephalic, atraumatic. No pharyngeal erythema. No thyromegaly. CARDIOVASCULAR: S1 and S2 present. No murmurs, rubs, or gallops. PULMONARY: Chest is clear to auscultation, no wheezing or crackles. ABDOMEN: Soft, nontender, nondistended, normoactive bowel sounds. No palpable organomegaly. MUSCULOSKELETAL: No joint swelling or deformity. EXTREMITIES: No cyanosis, clubbing, or pedal edema. NEUROLOGICAL: Gross neurological examination did not reveal any focal deficits. SKIN: No rashes. Results Labs: Abnormal Lab Results - Last 24 Hours (Table) 08/23/18 Range/Units 09:37 Cholesterol 205 H (<200) mg/dL LDL Cholesterol, Calc 100 H (0-99) mg/dL HDL Cholesterol 78 H (40-60) mg/dL Assessment and Plan Plan: -suicidal ideation, depression: Management as per primary service -Alcohol abuse -alcohol withdrawal patient is still having minimal withdrawals requiring Ativan 5-6 hours which will be continued Continue with thiamine multivitamin supplementation chronic low back pain -All call withdrawal seizures
[2018-08-23] MEDS: MIRTAZAPINE 15 MG TAB PO SCH (20:21)
[2018-08-23 21:02] LABS: Hemoglobin A1C 5.5 % (4.0-6.0)
[2018-08-24] MEDS: LORazepam 1 MG TAB PO PRN ×6 (01:11→21:12)
[2018-08-24] MEDS: NICOTINE 14MG/24HR PATCH TRANSDERM SCH (08:19)
[2018-08-24] MEDS: NAPROXEN 250 MG TAB PO SCH ×2 (08:19→21:06)
[2018-08-24] MEDS: FAMOTIDINE 20 MG TAB PO SCH ×2 (08:20→21:08)
[2018-08-24] MEDS: ALBUTEROL INHALER 60 PUFF/8 GM INHALER INHALATION SCH ×4 (09:04→21:36)
--- NOTE | 2018-08-24 09:32 | P.PN ---
Progress Note - Text Interval history: The patient is found in his room he follows me to an interview room. He indicates his mood is still depressed he feels hopeless he still is considering ways of killing himself. He states he is still experiencing symptoms of withdrawal. He is using the Ativan as needed. CIWA scores are reviewed. He reports having difficulty sleeping last night. Staff recorded he slept 5 hours and he disagrees. He admits that he has been in bed most the day yesterday and at least slept 4 hours between lunch and dinner. We discussed the importance of participating in groups and staying out of bed during the day so that he is able to sleep at night. Mental status exam: The patient is alert he has a disheveled appearance he is dressed in hospital gowns with his own clothes over top. Speech is fluent spontaneous nonpressured. He is cooperative and easily directed during the session. He indicates his mood is depressed he has hopeless thoughts with ongoing suicidal thoughts. He reports no homicidal ideation. He is endorsing no auditory or visual hallucinations insight and judgment limited. He does not appear hypomanic or manic. With outstretched arms he demonstrates a fine tremor bilaterally. Plan: The patient will continue on his current psychotropic medication. I will add melatonin at bedtime. He is instructed to attend groups during the day and stay out of bed during the day. Vital signs reviewed. We will continue using Ativan as needed to manage any residual alcohol withdrawal symptoms. It will be one week tomorrow since his last drink. We will continue to monitor him for safety. We will await the placement date at [place].
[2018-08-24] MEDS: FOLIC ACID 1 MG TAB PO SCH (10:55)
[2018-08-24] MEDS: THIAMINE 100 MG TAB PO SCH (10:55)
[2018-08-24] MEDS ORDERED: MELATONIN 5 MG TABLET PO SCH (21:00)
[2018-08-24] MEDS: MIRTAZAPINE 15 MG TAB PO SCH (21:08)
[2018-08-25] MEDS: LORazepam 1 MG TAB PO PRN ×3 (01:13→09:27)
[2018-08-25 01:20] VITALS: TEMP 98.6
[2018-08-25] MEDS: NAPROXEN 250 MG TAB PO SCH (08:24)
[2018-08-25] MEDS: FAMOTIDINE 20 MG TAB PO SCH (08:24)
[2018-08-25] MEDS: NICOTINE 14MG/24HR PATCH TRANSDERM SCH (08:24)
[2018-08-25 09:30] VITALS: BP 116/66; PULSE 117; RESP 20
[2018-08-25] MEDS: ALBUTEROL INHALER 60 PUFF/8 GM INHALER INHALATION SCH ×2 (09:32→12:02)
--- NOTE | 2018-08-25 10:51 | P.DS ---
Providers Date of admission: 08/22/18 22:12 Expected date of discharge: 08/25/18 Attending physician: Remigio Madrigal Consults: 08/22/18 22:33 Consult Physician Routine Consulting Provider: Katharine Ambriz Consult Reason/Comments: medical management Do you want consulting provider notified?: Yes, Notify in am Primary care physician: Stated None - Discharge Diagnosis(es) (1) Major depressive disorder, recurrent severe without psychotic features Current Visit: Yes Status: Acute Priority: High (2) Alcohol use disorder, severe, dependence Current Visit: No Status: Acute Priority: High (3) Opioid use disorder Current Visit: Yes Status: Acute Priority: Low (4) Cannabis use disorder, mild, abuse Current Visit: Yes Status: Acute Priority: Low Hospital Course: Brief summary of admission note: This patient is a 42-year-old male who was admitted to the mental health unit from the medical floor for acute suicidal ideation. The patient was initially seen by me in psychiatric consultation on 08/19/2018. The patient presented to the hospital grossly intoxicated with an alcohol level of 477. He was admitted to the medical floor for acute withdrawal symptoms and required ICU care due to the nature of his CIWA scores. The patient had indicated that he was suicidal and had a plan of overdosing with opiates or jumping into traffic. He felt that his antidepressant Paxil was not working. He felt that his symptoms of depression had been worsening over the last 2 months. He has been excessively consuming alcohol quantifying it as 1.5 fifths per day. For full details please refer to my psychiatric evaluation dated 08/23/2018. Summary of hospital course: The patient was admitted to the mental health unit voluntarily. We reviewed his presenting symptoms and treatment options. We continue to monitor for symptoms of alcohol withdrawal and Ativan was used. We initiated Remeron as he has found that helpful in the past for depression and sleep. The patient did attend groups. Quickly he called the access line to arrange inpatient chemical dependency treatment. He fortunately has gotten a placement date for tomorrow at 11 AM. He states that he is no longer suicidal and is excited that he is able to stay there for 21 days and then transition to [facility] afterwards. He has a close friend who will pick him up today and per the social work note, she will ensure he has no access to substances until his placement at [facility] tomorrow. The patient feels he sufficiently stabilized to pursue this plan. Mental status exam: The patient is alert he seated calmly in the chair. He is observed participating in groups this morning. Eye contact is appropriate speech is fluent spontaneous nonpressured. He indicates he is feeling more hopeful he denies having any acute suicidal ideation intent or plan. He is reporting no homicidal ideation intent or plan. He is endorsing no auditory or visual hallucinations or any specific delusions and there is no observed evidence of psychosis. He demonstrates no tangential thinking loose associations or flight of ideas. He does not appear hypomanic or manic. He demonstrates no verbal or physical aggressiveness. He is able to correctly name his current location month day and year. Overall his affect is appropriately expressive. Impressions 1. Major depressive disorder recurrent severe without psychosis, alcohol use disorder, opiate use disorder, cannabis use disorder Plan: The patient will be discharged from mental health unit this afternoon. He will reside with his friend who will take him to [facility] tomorrow morning for inpatient chemical dependency treatment. The patient will continue on Remeron 15 mg at bedtime. He has been using Ativan approximately 1 mg 3 times daily I will prescribe Ativan 1 mg twice daily dispense 3 tablets. He states he is certain he will not use any substances at his friend's home as he states there is no access. We discussed that re-using alcohol opiates cannabis or any other substance could precipitate more mood symptoms and elevate his safety risk. We discussed initiating naltrexone for his alcohol use disorder but he states he does not want that medication or any other as they do not work in terms of reducing cravings. At this time there is no imminent safety risk he is appropriate for transition to inpatient chemical dependency treatment which will start tomorrow morning at [facility]. He is instructed to return to the hospital if any acute safety concerns. Patient Condition at Discharge: Stable Plan - Discharge Summary New Discharge Prescriptions: New Folic Acid 1 mg PO DAILY@1200 #30 tab LORazepam [Ativan] 1 mg PO BID 1 Days #3 tab Mirtazapine [Remeron] 15 mg PO HS #3 tab Nicotine 14Mg/24Hr Patch [Habitrol] 1 patch TRANSDERM DAILY #10 patch Thiamine [Vitamin B-1] 100 mg PO DAILY@1200 #30 tab Continue Naproxen [Naprosyn] 500 mg PO BID Albuterol Inhaler [Ventolin Hfa Inhaler] 2 puff INHALATION RT-QID #1 puff Famotidine [Pepcid] 20 mg PO BID #60 tab Discontinued traZODone HCL [Desyrel] 150 mg PO HS #30 tab Ranitidine HCl 150 mg PO BID PARoxetine HCL [Paxil] 40 mg PO DAILY Buprenorphine HCl/Naloxone HCl [Zubsolv 5.7-1.4 mg Tablet Sl] 1 tab SL TID busPIRone HCL [Buspar] 15 mg PO BID Discharge Medication List Naproxen [Naprosyn] 500 mg PO BID 08/19/18 [History] Albuterol Inhaler [Ventolin Hfa Inhaler] 2 puff INHALATION RT-QID #1 puff [Rx] Famotidine [Pepcid] 20 mg PO BID #60 tab 08/25/18 [Rx] Folic Acid 1 mg PO DAILY@1200 #30 tab 08/25/18 [Rx] LORazepam [Ativan] 1 mg PO BID 1 Days #3 tab 08/25/18 [Rx] Mirtazapine [Remeron] 15 mg PO HS #3 tab 08/25/18 [Rx] Nicotine 14Mg/24Hr Patch [Habitrol] 1 patch TRANSDERM DAILY #10 patch 08/25/18 [ Rx] Thiamine [Vitamin B-1] 100 mg PO DAILY@1200 #30 tab 08/25/18 [Rx] Follow up Appointment(s)/Referral(s): [facility] [Outside] - 08/26/18 9:00 am
[2018-08-25] MEDS: FOLIC ACID 1 MG TAB PO SCH (12:43)
[2018-08-25] MEDS: THIAMINE 100 MG TAB PO SCH (12:43)
== END 2018-08-25 12:44 | disposition home or self-care (01) | DRG 885 ==
LOC: 3MHU 22:12
PROVIDERS: ADMIT Psychiatry & Neurology Psychiatry; ATTEND Psychiatry & Neurology Psychiatry
DX: F33.2 Major depressive disorder, recurrent severe without psychotic features (principal); F10.239 Alcohol dependence with withdrawal, unspecified; F10.251 Alcohol dependence with alcohol-induced psychotic disorder with hallucinations; R45.851 Suicidal ideations; F17.200 Nicotine dependence, unspecified, uncomplicated; F41.0 Panic disorder [episodic paroxysmal anxiety]; I10 Essential (primary) hypertension; G89.29 Other chronic pain; M54.5 Low back pain; Z59.0 Homelessness; Z79.899 Other long term (current) drug therapy; Z86.14 Personal history of Methicillin resistant Staphylococcus aureus infection; Z80.51 Family history of malignant neoplasm of kidney
CPT/HCPCS: 80061; 83036; 84443; 94640

== ENCOUNTER 2018-08-31 09:37 | Inpatient (IN) | payer MEDICAID, OTHER ==
--- NOTE | 2018-08-31 09:59 | ED ---
Psych HPI - General Chief Complaint: Psychiatric Symptoms Stated Complaint: Mental health Time Seen by Provider: 08/31/18 09:48 Source: patient, RN notes reviewed Mode of arrival: ambulatory Limitations: no limitations - History of Present Illness Initial Comments: 42-year-old male presents emergency Department chief complaint depression, suicidal ideation. Patient states that he's been sick for last 5 days but checked himself out today because he was feeling suicidal. Patient states that he was admitted prior to this to [facility]. Patient does have a long history of alcohol abuse, psychiatric disorders. Patient denies any physical complaints. Patient denies any homicidal ideation. No current drug abuse - Related Data Home Medications Medication Instructions Recorded Confirmed Naproxen [Naprosyn] 500 mg PO BID 08/19/18 08/31/18 Buprenorphine HCl/Naloxone HCl 1 tab SUBLINGUAL TID PRN 08/31/18 08/31/18 [Zubsolv 5.7-1.4 mg Tablet Sl] Ranitidine HCl [Zantac] 150 mg PO BID 08/31/18 08/31/18 traZODone HCL 150 mg PO HS 08/31/18 08/31/18 Previous Rx's Medication Instructions Recorded Albuterol Inhaler [Ventolin Hfa 2 puff INHALATION RT-QID #1 puff 08/25/18 Inhaler] Famotidine [Pepcid] 20 mg PO BID #60 tab 08/25/18 Nicotine 14Mg/24Hr Patch [Habitrol] 1 patch TRANSDERM DAILY #10 patch 08/25/18 Allergies Allergy/AdvReac Type Severity Reaction Status Date / Time No Known Allergies Allergy Verified 08/31/18 10:06 Review of Systems ROS Statement: Those systems with pertinent positive or pertinent negative responses have been documented in the HPI. ROS Other: All systems not noted in ROS Statement are negative. Past Medical History Past Medical History: Hypertension Additional Past Medical History / Comment(s): ETOH abuse, alcohol withdrawal with seizure 2014, Pt states recently told he has a "black spot" he believes on L lung which showed on a recent cat scan done in [facility]-he was to follow up but did not, chronic back pain, broken rib, been hearing voices History of Any Multi-Drug Resistant Organisms: MRSA Date of last positivie culture/infection: 2004 MDRO Source:: left antecubital space secondary to heroin use Past Surgical History: No Surgical Hx Reported Additional Past Surgical History / Comment(s): Nasal surgery at the age of 11 yrs, cyst removed from LAC. Past Anesthesia/Blood Transfusion Reactions: No Reported Reaction Past Psychological History: Anxiety, Depression, Panic Disorder Smoking Status: Current every day smoker Past Alcohol Use History: Abuse, Daily, Heavy Past Drug Use History: Marijuana - Past Family History Father Additional Family Medical History / Comment(s): father and his brothers ETOH hx Mother Family Medical History: Cancer Additional Family Medical History / Comment(s): Mother of renal cancer at the age of 60yrs. General Exam Limitations: no limitations General appearance: alert, in no apparent distress Head exam: Present: atraumatic, normocephalic, normal inspection Eye exam: Present: normal appearance, PERRL, EOMI. Absent: scleral icterus, conjunctival injection, periorbital swelling ENT exam: Present: normal exam, normal oropharynx, mucous membranes moist Neck exam: Present: normal inspection, full ROM. Absent: tenderness, meningismus, lymphadenopathy Respiratory exam: Present: normal lung sounds bilaterally. Absent: respiratory distress, wheezes, rales, rhonchi, stridor Cardiovascular Exam: Present: regular rate, normal rhythm, normal heart sounds. Absent: systolic murmur, diastolic murmur, rubs, gallop, clicks GI/Abdominal exam: Present: soft, normal bowel sounds. Absent: distended, tenderness, guarding, rebound, rigid Neurological exam: Present: alert, oriented X3, CN II-XII intact Skin exam: Present: warm, dry, intact, normal color. Absent: rash Course Vital Signs 08/31/18 09:41 Temperature 99.5 F Pulse Rate 98 Respiratory 18 Rate Blood Pressure 130/86 O2 Sat by Pulse 100 Oximetry Medical Decision Making - Lab Data Lab Results 08/31/18 Range/Units 10:23 Urine Opiates Screen Not Detected (NotDetected) Ur Oxycodone Screen Not Detected (NotDetected) Urine Methadone Screen Not Detected (NotDetected) Ur Propoxyphene Screen Not Detected (NotDetected) Ur Barbiturates Screen Not Detected (NotDetected) U Tricyclic Antidepress Not Detected (NotDetected) Ur Phencyclidine Scrn Not Detected (NotDetected) Ur Amphetamines Screen Not Detected (NotDetected) U Methamphetamines Scrn Not Detected (NotDetected) U Benzodiazepines Scrn Detected H (NotDetected) Urine Cocaine Screen Not Detected (NotDetected) U Marijuana (THC) Screen Detected H (NotDetected) Disposition Clinical Impression: Depression, Suicidal ideation Disposition: ADMITTED IP TO THIS HOSP Condition: Fair Referrals: Danielle Honeycutt MD [Primary Care Provider] - 1-2 days
[2018-08-31 10:48] LABS: Amphetamine Screen,Urine Not Detected (NotDetected); Barbiturate Screen,Urine Not Detected (NotDetected); Benzodiazepines Screen,Urine Detected (NotDetected); Cocaine Screen,Urine Not Detected (NotDetected); Methadone Screen, Urine Not Detected (NotDetected); Opiate Screen,Urine Not Detected (NotDetected); Oxycodone Screen, Urine Not Detected (NotDetected); Phencyclidine Screen,Urine Not Detected (NotDetected); Tricyclic Antidepressant,Urine Not Detected (NotDetected); Urn Cannabinoid Scrn Detected (NotDetected)
[2018-08-31] MEDS ORDERED: MAG HYDROX/AL HYDROX/SIMETH 30 ML CUP PO PRN (12:37)
[2018-08-31] MEDS ORDERED: MAGNESIUM HYDROXIDE 2,400 MG/10 ML CUP PO PRN (12:37)
[2018-08-31] MEDS ORDERED: ACETAMINOPHEN TAB 325 MG TAB PO PRN (12:37)
[2018-08-31] MEDS ORDERED: ZIPRASIDONE 20 MG VIAL IM PRN (12:37)
[2018-08-31 13:38] VITALS: BMI 22.2
[2018-08-31] MEDS ORDERED: PNEUMOCOCCAL VACC-PNEUMOVAX 23 25 MCG/0.5 ML VIAL IM ONE (13:57)
[2018-08-31] MEDS ORDERED: NICOTINE 14MG/24HR PATCH TRANSDERM STA (15:37)
[2018-08-31] MEDS: LORazepam 0.5 MG TAB PO PRN (15:48)
[2018-08-31] MEDS: ALBUTEROL INHALER 60 PUFF/8 GM INHALER INHALATION SCH ×2 (16:47→20:09)
[2018-08-31] MEDS: cloNIDine HCL 0.1 MG TAB PO PRN (16:51)
[2018-08-31] MEDS: cloNIDine HCL 0.1 MG TAB PO SCH ×2 (17:54→21:45)
--- NOTE | 2018-08-31 18:37 | CONS ---
CONSULTATION REASON FOR CONSULTATION: Advice regarding hypertension and multiple medical issues, requested by Psychiatry. HISTORY OF PRESENT ILLNESS: This 42-year-old gentleman with a past medical history of hypertension, history ETOH abuse, history of MRSA, anxiety, depression, panic disorder, history of alcohol abuse, being followed by Dr. Honeycutt in the outpatient setting, was recently admitted to [facility]. Subsequently patient was in rehab at [place]. Subsequently patient started drinking. Patient was drinking a fifth and a half; last drink was 5 days ago. The patient is undergoing withdrawals and tremors. After receiving Ativan, patient is feeling slightly better. Patient also has some occasional cough. The patient also complains of diffuse aches and pains. Patient apparently is taking Suboxone at home, but the prescriptions are used up, per staff. There is no history of any fever, rigor or chills. No history of headache, loss of consciousness, seizures. PAST MEDICAL HISTORY: 1. Hypertension. 2. ETOH. 3. History of MRSA. 4. Anxiety. 5. Depression. 6. Panic disorder. 7. History of nicotine dependence. MEDICATIONS: Medications prior to admission include: 1. Albuterol 2 puffs q.i.d. 2. Zubsolv 1 tablet sublingually t.i.d. p.r.n. 3. Habitrol 1 tablet daily. 4. Naprosyn 500 mg b.i.d. 5. Pepcid 20 mg b.i.d. 6. Zantac 150 mg b.i.d. 7. Trazodone 150 mg at bedtime. ALLERGIES: NONE. FAMILY HISTORY: History of cancer. History of ETOH. SOCIAL HISTORY: History of ETOH history of marijuana, history of smoking. REVIEW OF SYSTEMS: ENT: No diminished hearing. No diminished vision. CARDIOVASCULAR SYSTEM: No angina, palpitations. RESPIRATORY SYSTEM: As mentioned earlier. GI: No nausea, vomiting. : No dysuria or retention. NERVOUS SYSTEM: No numbness, weakness. ALLERGY/IMMUNOLOGY: No asthma, hayfever. MUSCULOSKELETAL: As mentioned earlier. HEMATOLOGY/ONCOLOGY: No history of anemia. ENDOCRINE: No history of diabetes, hypothyroidism. CONSTITUTIONAL: As mentioned earlier. DERMATOLOGY: Negative. RHEUMATOLOGY: Negative. PSYCHIATRY: As mentioned earlier. PHYSICAL EXAMINATION: Patient alert and oriented x3. The pulse is 71, blood pressure 156/104, respiration 18, temperature 97.8, pulse ox 100% on room air. HEENT: Conjunctivae normal. Oral mucosa moist. NECK: No jugular venous distention. No carotid bruit. No lymph node enlargement. CARDIOVASCULAR SYSTEM: S1, S2 muffled. RESPIRATORY SYSTEM: Breath sounds diminished at the bases. A few scattered rhonchi and crackles. ABDOMEN: Soft, non-tender. No mass palpable. LEGS: No edema. No swelling. NERVOUS SYSTEM: Higher functions as mentioned earlier. Moves all 4 limbs. No focal motor or sensory deficit. Cranial nerves 2 to 12 grossly intact. No no nystagmus. Moves all 4 limbs. No signs of cerebellar dysfunction. Gait is normal. Slight tremors noted. SKIN: No ulcer, rash, bleeding. LYMPHATICS: No lymph node palpable in neck, axillae or groin. JOINTS: No active deforming arthropathy. LABS AT THIS TIME: Drug screen is positive for benzodiazepines and THC. ASSESSMENT: 1. Early delirium tremens and alcohol withdrawal syndrome. 2. History of ethanol. 3. Hypertension. 4. History of methicillin-resistant Staphylococcus aeruginosa. 5. History of anxiety, depression, panic disorder. 6. History of nicotine dependence. 7. History of polysubstance abuse. RECOMMENDATIONS AND DISCUSSION: In this 42-year-old gentleman who presented with multiple complex medical issues , we will monitor the patient closely, continue the current management. I recommend continuing with CIWA protocol and also recommend Habitrol and resume the home medications, monitor blood pressure closely. Clonidine p.r.n. Will follow the patient closely. Patient may be asked to follow up with Dr. Honeycutt closely after discharge. Thank you, Dr. Madrigal, for letting us participate in the care of this patient. MMODL / IJN: [id number] / [facility]
[2018-08-31] MEDS ORDERED: NAPROXEN 250 MG TAB PO SCH (21:00)
[2018-08-31] MEDS ORDERED: NON-FORMULARY DRUG (Ranitidine Hcl [Zantac] 150 MG) PO SCH (21:00)
[2018-08-31] MEDS ORDERED: FAMOTIDINE 20 MG TAB PO SCH (21:00)
[2018-08-31] MEDS ORDERED: MIRTAZAPINE 15 MG TAB PO SCH (21:00)
[2018-09-01] MEDS: LORazepam 0.5 MG TAB PO PRN (00:43)
[2018-09-01] MEDS: cloNIDine HCL 0.1 MG TAB PO PRN (00:43)
[2018-09-01 04:09] VITALS: TEMP 98
[2018-09-01] MEDS ORDERED: LORazepam 0.5 MG TAB PO STA (04:23)
[2018-09-01] MEDS ORDERED: LORazepam 0.5 MG TAB PO PRN (04:41)
[2018-09-01 05:20] VITALS: BP 101/70; PULSE 102; RESP 20
[2018-09-01] MEDS ORDERED: NICOTINE 14MG/24HR PATCH TRANSDERM SCH (09:00)
== END 2018-09-01 05:49 | disposition short-term general hospital (02) | DRG 881 ==
LOC: EC 09:37 → 3MHU 12:32
PROVIDERS: ADMIT Psychiatry & Neurology Psychiatry; ATTEND Psychiatry & Neurology Psychiatry
DX: F32.9 Major depressive disorder, single episode, unspecified (principal); F10.231 Alcohol dependence with withdrawal delirium; R45.851 Suicidal ideations; F17.200 Nicotine dependence, unspecified, uncomplicated; F41.0 Panic disorder [episodic paroxysmal anxiety]; I10 Essential (primary) hypertension; Z80.51 Family history of malignant neoplasm of kidney; Z86.14 Personal history of Methicillin resistant Staphylococcus aureus infection; Z79.899 Other long term (current) drug therapy
CPT/HCPCS: 80306; 90732; 99285

== ENCOUNTER 2018-09-01 05:26 | Inpatient (IN) | payer OTHER ==
[2018-09-01 06:18] VITALS: BMI 22.4
[2018-09-01] MEDS ORDERED: SODIUM CHLORIDE 0.9% 1,000 ML with MVI, ADULT NO.4 WITH VIT K 10 ML, THIAMINE 100 MG, F... IV ONE ×4 (06:34)
[2018-09-01] MEDS ORDERED: THIAMINE 100 MG/ML 2 ML VIAL IM STA (06:38)
[2018-09-01 07:02] LABS: Basophils # (A) 0.2 k/uL (0-0.2); Basophils % (A) 2 %; Eosinophils # (A) 0.3 k/uL (0-0.7); Eosinophils % (A) 2 %; HCT 39.8 % (39.0-53.0); HGB 12.4 gm/dL (13.0-17.5); Lymphocytes # (A) 3.1 k/uL (1.0-4.8); Lymphocytes % (A) 29 %; MCH 30.7 pg (25.0-35.0); MCHC 31.1 g/dL (31.0-37.0); MCV 98.7 fL (80.0-100.0); Mean Platelet Volume 6.5; Monocytes # (A) 0.6 k/uL (0-1.0); Monocytes % (A) 6 %; Neutrophils # (A) 6.1 k/uL (1.3-7.7); Neutrophils % (A) 57 %; RBC 4.03 m/uL (4.30-5.90); RDW 13.7 % (11.5-15.5); WBC 10.7 k/uL (3.8-10.6)
[2018-09-01 07:09] LABS: Platelet Count 471 k/uL (150-450)
[2018-09-01] MEDS: LORazepam 2 MG/ML INJ IV PRN ×7 (07:11→21:22)
[2018-09-01 07:18] LABS: Alcohol <10 mg/dL; Anion Gap 6 mmol/L; Blood Urea Nitrogen 23 mg/dL (9-20); Calcium 9.8 mg/dL (8.4-10.2); Carbon Dioxide 26 mmol/L (22-30); Chloride 105 mmol/L (98-107); Glucose 88 mg/dL (74-99); Magnesium 2.1 mg/dL (1.6-2.3); Potassium 5.3 mmol/L (3.5-5.1); Sodium 137 mmol/L (137-145)
[2018-09-01] MEDS ORDERED: PANTOPRAZOLE 40 MG/10 ML VIAL IVP SCH (09:00)
[2018-09-01] MEDS ORDERED: NALOXONE HCL SUBLINGUAL PRN (14:49)
[2018-09-01] MEDS ORDERED: BUPRENORPHINE HCL SUBLINGUAL PRN (14:49)
[2018-09-01] MEDS: ALBUTEROL NEBULIZED 2.5 MG/3 ML INHALATION SCH ×2 (15:39→19:05)
[2018-09-01] MEDS: NICOTINE 14MG/24HR PATCH TRANSDERM SCH (16:17)
[2018-09-01] MEDS: THIAMINE 100 MG TAB PO SCH (16:17)
[2018-09-01] MEDS: BUPRENORPHINE SUBLINGUAL PRN (16:43)
[2018-09-01] MEDS: NALOXONE SUBLINGUAL PRN (16:43)
[2018-09-01] MEDS: cloNIDine HCL 0.1 MG TAB PO SCH (16:54)
[2018-09-01] MEDS ORDERED: traZODone HCL 50 MG TAB PO SCH (21:00)
[2018-09-01] MEDS ORDERED: NON-FORMULARY DRUG (Ranitidine Hcl [Zantac] 150 MG) PO SCH (21:00)
[2018-09-01] MEDS: NAPROXEN 250 MG TAB PO SCH (21:22)
[2018-09-01] MEDS: FAMOTIDINE 20 MG TAB PO SCH (21:22)
[2018-09-01] MEDS ORDERED: TEMAZEPAM 15 MG CAP PO PRN (23:03)
[2018-09-01] MEDS ORDERED: ACETAMINOPHEN TAB 500 MG TAB PO PRN (23:03)
[2018-09-02] MEDS: BUPRENORPHINE SUBLINGUAL PRN ×3 (00:17→17:42)
[2018-09-02] MEDS: LORazepam 2 MG/ML INJ IV PRN ×8 (00:17→18:52)
[2018-09-02] MEDS: NALOXONE SUBLINGUAL PRN ×3 (00:17→17:42)
[2018-09-02] MEDS: traZODone HCL 50 MG TAB PO SCH ×2 (00:18→20:32)
[2018-09-02] MEDS: cloNIDine HCL 0.1 MG TAB PO SCH ×3 (01:28→15:50)
--- NOTE | 2018-09-02 01:48 | HP ---
HISTORY AND PHYSICAL DATE OF SERVICE: 09/01/2018 CHIEF COMPLAINTS: DTs. HISTORY OF PRESENT ILLNESS: This 42-year-old gentleman with a past medical history of EtOH, hypertension, history of MRSA, history of anxiety, depression, nicotine dependence, polysubstance abuse being followed by Dr. Honeycutt in the outpatient setting was recently admitted to the hospital for psychiatric evaluation. The patient was apparently recently at [facility] but subsequently started drinking and the patient had significant withdrawal symptoms and patient was transferred to medical floor at this time. There is no history of fever, rigors or chills. No history of headache, loss of consciousness, seizures, chest pain, palpitations at this time. PAST MEDICAL HISTORY: History of hypertension, history of ETOH, history of MRSA, history of anxiety, depression, polysubstance abuse. MEDICATIONS: Prior to admission include: 1. Trazodone 50 mg p.o. q.h.s. 2. Ranitidine 150 mg p.o. b.i.d. 3. Habitrol 14 daily. 4. Naprosyn 500 mg p.o. b.i.d. 5. Pepcid 20 mg p.o. b.i.d. 6. Subsolid 1 tablet p.o. t.i.d. p.r.n. 7. Ventolin HFA 1-2 puffs q.i.d. ALLERGIES: None. FAMILY HISTORY: History of ETOH in the family. SOCIAL HISTORY: History of smoking, THC, history of alcohol also. REVIEW OF SYSTEMS: ENT: No diminished vision, diminished hearing. CARDIOVASCULAR: No angina or palpitations. RESPIRATORY: As mentioned earlier. GI no nausea or vomiting. no dysuria. NERVOUS SYSTEM: No numbness, weakness. ALLERGY/IMMUNOLOGY: No asthma or hayfever. MUSCULOSKELETAL as mentioned earlier. HEMATOLOGY/ONCOLOGY: No history of anemia. ENDOCRINE: No history of diabetes or hypothyroidism. CONSTITUTIONAL: As mentioned earlier. Dermatology: Negative. Rheumatology: Negative. Psychiatry: As mentioned earlier. PHYSICAL EXAM: Patient is alert, oriented x3. Pulse 87. Blood pressure 109/87, respirations 14, temperature 98.4, pulse ox 97% on room air. HEENT: Conjunctivae normal. NECK: No jugular venous distention. CARDIOVASCULAR: S1, S2. RESPIRATIONS: Breath sounds diminished in the bases. A few scattered rhonchi. No crackles. ABDOMEN: Soft, nontender. No mass palpable. LEGS: No edema. No swelling. NERVOUS SYSTEM: Higher functions as mentioned earlier. Moves all 4 limbs. Diffuse tremors present. Suggestive of DTs. SKIN: No ulcers, rashes or bleeding. JOINTS: No active deforming arthropathy. LYMPHATICS: No lymph nodes palpable in the neck or axilla. LAB STUDIES: WBC 10.9, hemoglobin is 12.4. Potassium 5.2. ASSESSMENT: 1. Acute delirium tremens and alcohol withdrawal. 2. Increased WBC possibly reactive. 3. History of ETOH. 4. Hypertension. 5. History of MRSA. 6. History of anxiety, depression, panic disorder. 7. History of nicotine dependence. 8. History of polysubstance abuse. RECOMMENDATIONS AND DISCUSSION: In this 42-year-old gentleman who presented with multiple complex medical issues, we will monitor the patient closely, continue the current medications, management and symptomatic treatment. Otherwise, at this time, I recommend continue with CIWA protocol and I would also recommend symptomatic treatment and clonidine for hypertension. Resume the home medications. Bronchodilators. Repeat the labs. DVT prophylaxis. The prognosis guarded because of multiple complex medical issues. Further recommendations to follow. A copy of dictation being forwarded to Dr. Honeycutt who is the primary physician. MMODL / IJN: [id number] /
[2018-09-02] MEDS: ALBUTEROL NEBULIZED 2.5 MG/3 ML INHALATION SCH ×4 (07:51→19:03)
[2018-09-02 08:34] LABS: Basophils # (A) 0.2 k/uL (0-0.2); Basophils % (A) 2 %; Eosinophils # (A) 0.3 k/uL (0-0.7); Eosinophils % (A) 3 %; HCT 39.5 % (39.0-53.0); HGB 12.6 gm/dL (13.0-17.5); Lymphocytes % (A) 34 %; MCH 31.6 pg (25.0-35.0); MCHC 31.9 g/dL (31.0-37.0); Mean Platelet Volume 6.5; Monocytes # (A) 0.5 k/uL (0-1.0); Monocytes % (A) 5 %; Neutrophils # (A) 4.4 k/uL (1.3-7.7); Neutrophils % (A) 51 %; Platelet Count 446 k/uL (150-450); RBC 3.99 m/uL (4.30-5.90); RDW 13.8 % (11.5-15.5); WBC 8.6 k/uL (3.8-10.6)
[2018-09-02 08:43] LABS: Anion Gap 7 mmol/L; Blood Urea Nitrogen 34 mg/dL (9-20); Carbon Dioxide 25 mmol/L (22-30); Chloride 106 mmol/L (98-107); Glucose 103 mg/dL (74-99); Potassium 5.1 mmol/L (3.5-5.1); Sodium 138 mmol/L (137-145)
[2018-09-02] MEDS: HEPARIN SODIUM,PORCINE 5,000 UNIT/ML 1 ML VIAL SQ SCH ×2 (09:24→20:33)
[2018-09-02] MEDS: FAMOTIDINE 20 MG TAB PO SCH (09:24)
[2018-09-02] MEDS: PANTOPRAZOLE 40 MG TABLET PO SCH (09:24)
[2018-09-02] MEDS: NICOTINE 14MG/24HR PATCH TRANSDERM SCH (09:27)
[2018-09-02] MEDS: NAPROXEN 250 MG TAB PO SCH ×2 (09:36→20:30)
[2018-09-02] MEDS: MULTIVITAMINS, THERA 1 EACH TAB PO SCH (11:49)
[2018-09-02] MEDS: THIAMINE 100 MG TAB PO SCH ×2 (11:49→17:41)
--- NOTE | 2018-09-02 13:54 | P.CN ---
Psychiatric Consult - . Consult date: 09/02/18 Consult:: Depression 09/02/18 13:51 Assessment and Plan Assessment: 42-year-old male presents emergency Department chief complaint depression, suicidal ideation. Patient states that he's been sick for last 5 days but checked himself out today because he was feeling suicidal. Patient states that he was admitted prior to this to [facility]. Patient does have a long history of alcohol abuse, psychiatric disorders. Patient denies any physical complaints. Patient denies any homicidal ideation. No current drug abuse patient was transferred due to [facility] score high for medical monitoring. - Related Data Home Medications Medication Instructions Recorded Confirmed Naproxen [Naprosyn] 500 mg PO BID 08/19/18 08/31/18 Buprenorphine HCl/Naloxone HCl 1 tab SUBLINGUAL TID PRN 08/31/18 08/31/18 [Zubsolv 5.7-1.4 mg Tablet Sl] Ranitidine HCl [Zantac] 150 mg PO BID 08/31/18 08/31/18 traZODone HCL 150 mg PO HS 08/31/18 08/31/18 Previous Rx's Medication Instructions Recorded Albuterol Inhaler [Ventolin Hfa 2 puff INHALATION RT-QID #1 puff 08/25/18 Inhaler] Famotidine [Pepcid] 20 mg PO BID #60 tab 08/25/18 Nicotine 14Mg/24Hr Patch [Habitrol] 1 patch TRANSDERM DAILY #10 patch 08/25/18 Allergies Allergy/AdvReac Type Severity Reaction Status Date / Time No Known Allergies Allergy Verified 08/31/18 10:06 Past Medical History Past Medical History: Hypertension Additional Past Medical History / Comment(s): ETOH abuse, alcohol withdrawal with seizure 2014, Pt states recently told he has a "black spot" he believes on L lung which showed on a recent cat scan done in [facility]-he was to follow up but did not, chronic back pain, broken rib, been hearing voices History of Any Multi-Drug Resistant Organisms: MRSA Date of last positivie culture/infection: 2004 MDRO Source:: left antecubital space secondary to heroin use Past Surgical History: No Surgical Hx Reported Additional Past Surgical History / Comment(s): Nasal surgery at the age of 11 yrs, cyst removed from LAC. Past Anesthesia/Blood Transfusion Reactions: No Reported Reaction Past Psychological History: Anxiety, Depression, Panic Disorder Smoking Status: Current every day smoker Past Alcohol Use History: Abuse, Daily, Heavy Past Drug Use History: Marijuana - Past Family History Father Additional Family Medical History / Comment(s): father and his brothers ETOH hx Mother Family Medical History: Cancer Additional Family Medical History / Comment(s): Mother of renal cancer at the age of 60yrs. IDENTIFYING DATA: This patient is a 42-year-old male who was admitted to the mental health unit from the medical floor for acute suicidal ideation. HPI: The patient was seen in psychiatric consultation by me on 08/19/2018. He presented to the hospital initially and was found sleeping on a bench his alcohol level was 477. He was admitted to the emergency room and then admitted to the medical floor for acute alcohol withdrawal symptoms. As his CIWA scores were high he was admitted to the ICU. When I met with him he was in acute alcohol withdrawal. He indicated he was suicidal and had plan of either overdosing on opiates or jumping into traffic. He states that his antidepressant medication Paxil was not working and felt even worse. His symptoms of depression had been worsening over 2 months. His primary care physician was prescribing Paxil BuSpar and trazodone. He has been excessively consuming alcohol and quantifies it as one and one half fifths a day of vodka. He also had opiates and marijuana in his system as well. He indicates that he is homeless and has been couch hopping. He reports feeling depressed sad hopeless tearful. No homicidal ideation. He is reporting auditory hallucinations in the form of shatter such as hearing children talked but he cannot make out any words. No command auditory hallucinations. He is endorsing no delusional thoughts. He states he is experiencing some visual hallucinations with the wall boarders moving. PAST PSYCHIATRIC HISTORY: The patient has had several inpatient admissions the last one on our mental health unit was July 2017 and prior to that April 2014. He reports over time he's been prescribed Remeron Seroquel Xanax Zoloft Ativan Klonopin Valium BuSpar Paxil trazodone. He states the Remeron helped with sleep in the past and he was given that while he was in [facility] but only for a brief time. He states trazodone causes vivid nightmares and he states Paxil seemed to worsen his depression. He has struggle with suicidal thoughts in the past but unknown if he's had any actual attempts. PMH: Hypertension ALLERGIES: NO KNOWN DRUG ALLERGIES MEDICATIONS: Refer to [facility] CHEMICAL DEPENDENCY HISTORY: The patient has an alcohol use disorder as noted above, history of opiate use disorder he states he's been sober from opiates for 7 years however they were in his urine drug screen and he reports he actively uses marijuana. He has been inpatient chemical dependency treatment numerous times in the past. FAMILY PSYCHIATRIC HISTORY: Unknown FAMILY CHEMICAL DEPENDENCY HISTORY: Unknown SOCIAL HISTORY: The patient is a 42-year-old male. He has no children he is homeless. He has a high school education. He has 2 brothers one sister. No report of abuse history he has a history of 3 DUIs. MENTAL STATUS EXAM: Patient is a shorter statured thin male appearing older than his stated age. He has a walter he wears eyeglasses. He is dressed in hospital attire. Throughout the interview he demonstrates tremulous activity of his upper extremities especially. He indicates feeling depressed sad and hopeless. He continues to have suicidal ideation no homicidal ideation intent or plan. He endorses auditory hallucinations as noted above he endorses visual hallucinations as noted above. He reports no delusional thought content. He was calm and cooperative he demonstrated no agitated behavior he demonstrated no tangential thinking loose associations or flight of ideas. He does not appear hypomanic or manic. Insight and judgment limited. He is oriented to person place he does not know the day the week he is able to name the month of the year. He is able to name the days of the week. STRENGTHS/WEAKNESSES: Strengths: Willingness to receive treatment voluntarily weaknesses: Alcohol use severe symptoms of depression INTELLECTUAL FUNCTIONING: Below average to average IMPRESSIONS: [] 1. 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 Medical comorbidities including hypertension 3. No income homeless limited support When medically stable able to transfer back to [address] [place] [address]. (1) Alcohol use disorder, severe, dependence Current Visit: No Status: Acute Priority: Medium Code(s): F10.20 - ALCOHOL DEPENDENCE, UNCOMPLICATED SNOMED Code(s): 847268685 (2) Major depressive disorder, recurrent severe without psychotic features Current Visit: No Status: Acute Priority: Medium Code(s): F33.2 - MAJOR DEPRESSV DISORDER, RECURRENT SEVERE W/O PSYCH FEATURES SNOMED Code(s): 51881777 Time with Patient: Less than 30
[2018-09-02] MEDS: CYCLOBENZAPRINE 5 MG TAB PO PRN (15:56)
--- NOTE | 2018-09-02 20:48 | PN ---
PROGRESS NOTE DATE OF SERVICE: 09/02/2018. HISTORY: This 42-year-old gentleman who was admitted with DTs, transferred from inpatient psych floor is being closely monitored. Patient still has some tremors. No chest pain. No palpitations. No fever. EXAM: Alert and oriented x3. Pulse 76, blood pressure 108/75, respirations 16, temp 98.7, pulse ox 94% on room air. HEENT: Conjunctivae normal. NECK: No JVD. CARDIOVASCULAR: S1 and S2 muffled. LUNGS: Breath sounds diminished at the bases. No rhonchi, no crackles. ABDOMEN: Soft, nontender. EXTREMITIES: Legs no edema, no swelling. NERVOUS SYSTEM: No focal deficits. Mild diffuse tremors. LABS: WBC 8.2, hemoglobin is 12.2, sodium 130, potassium 5.1. ASSESSMENT: 1. Acute delirium tremens and alcohol withdrawal. 2. Increased WBC, possibly reactive. 3. Depression with suicidal ideations recently. 4. History of ETOH. 5. Hypertension. 6. History of MRSA. 7. Anxiety, depression, panic disorder. 8. History of nicotine dependence. 9. History of polysubstance abuse. RECOMMENDATIONS AND DISCUSSION: In this 42-year-old gentleman who presented with multiple complex medical issues, we will monitor the patient closely, continue the current management and symptomatic treatment. Otherwise will continue with CIWA protocol. Multivitamin supplements. Closely follow with psychiatric. Guarded prognosis because of multiple complex medical issues. Further recommendations to follow. MMODL / IJN: [id number] /
[2018-09-03] MEDS: BUPRENORPHINE SUBLINGUAL PRN ×3 (00:24→19:17)
[2018-09-03] MEDS: cloNIDine HCL 0.1 MG TAB PO SCH ×4 (00:24→23:06)
[2018-09-03] MEDS: NALOXONE SUBLINGUAL PRN ×3 (00:24→19:17)
[2018-09-03] MEDS: LORazepam 2 MG/ML INJ IV PRN ×6 (03:37→23:07)
[2018-09-03] MEDS: ALBUTEROL NEBULIZED 2.5 MG/3 ML INHALATION SCH ×4 (07:42→19:32)
[2018-09-03 08:30] LABS: Anion Gap 8 mmol/L; Blood Urea Nitrogen 39 mg/dL (9-20); Calcium 10.3 mg/dL (8.4-10.2); Carbon Dioxide 28 mmol/L (22-30); Chloride 102 mmol/L (98-107); Glucose 89 mg/dL (74-99); Potassium 5.3 mmol/L (3.5-5.1); Sodium 138 mmol/L (137-145)
[2018-09-03] MEDS: PANTOPRAZOLE 40 MG TABLET PO SCH (08:57)
[2018-09-03 09:00] LABS: Basophils # (A) 0.1 k/uL (0-0.2); Basophils % (A) 1 %; Eosinophils # (A) 0.3 k/uL (0-0.7); Eosinophils % (A) 3 %; HCT 41.6 % (39.0-53.0); HGB 12.9 gm/dL (13.0-17.5); Lymphocytes # (A) 3.1 k/uL (1.0-4.8); Lymphocytes % (A) 32 %; MCV 99.8 fL (80.0-100.0); Mean Platelet Volume 6.7; Monocytes # (A) 0.5 k/uL (0-1.0); Monocytes % (A) 6 %; Neutrophils # (A) 5.4 k/uL (1.3-7.7); Neutrophils % (A) 55 %; Platelet Count 462 k/uL (150-450); RBC 4.17 m/uL (4.30-5.90); RDW 13.7 % (11.5-15.5); WBC 9.9 k/uL (3.8-10.6)
[2018-09-03] MEDS: NICOTINE 14MG/24HR PATCH TRANSDERM SCH (10:17)
[2018-09-03] MEDS: HEPARIN SODIUM,PORCINE 5,000 UNIT/ML 1 ML VIAL SQ SCH ×2 (10:17→23:07)
[2018-09-03] MEDS: NAPROXEN 250 MG TAB PO SCH (10:17)
[2018-09-03] MEDS: MULTIVITAMINS, THERA 1 EACH TAB PO SCH (13:00)
[2018-09-03] MEDS: THIAMINE 100 MG TAB PO SCH ×2 (13:00→16:31)
[2018-09-03] MEDS: FOLIC ACID 1 MG TAB PO SCH (13:00)
[2018-09-03] MEDS: CYCLOBENZAPRINE 5 MG TAB PO PRN ×2 (13:17→23:12)
--- NOTE | 2018-09-03 19:43 | PN ---
PROGRESS NOTE DATE OF SERVICE: 09/03/2018 This [id number] was admitted with acute delirium tremens, has been improving significantly. No chest pain. No palpitations. No fever. EXAM: Alert and oriented x3. Pulse 86, blood pressure 107/60, respirations 16, temperature 98.2, pulse ox 94% on room air. HEENT: Conjunctivae normal. Oral mucosa moist. NECK: No jugular venous distention. No lymph node enlargement. CARDIOVASCULAR: S1, S2. RESPIRATORY: Diminished breath sounds muffled at the bases. A few scattered rhonchi. ABDOMEN: Soft, nontender. LEGS: No swelling. NERVOUS SYSTEM: Delirium tremens. LABS: WBC 9, hemoglobin 11.1, potassium 5.3. ASSESSMENT: 1. Acute delirium tremens and alcohol withdrawal. 2. Increased WBC, possibly reactive. 3. Depression with suicidal ideations recently. 4. History of ETOH. 5. Hypertension. 6. History of MRSA. 7. History of anxiety, depression, panic disorder. 8. History of nicotine dependence. 9. History of polysubstance abuse. RECOMMENDATIONS: Recommend to continue current medication, continue symptomatic treatment. Continue with Ativan liberally. Otherwise, patient tremors. Once the patient is stabilized, transfer to inpatient psych for further evaluation. Further recommendations to follow. MMODL / IJN: [id number] / YASMANI
[2018-09-03] MEDS: traZODone HCL 50 MG TAB PO SCH (23:05)
[2018-09-04] MEDS: BUPRENORPHINE SUBLINGUAL PRN ×4 (00:31→20:00)
[2018-09-04] MEDS: NALOXONE SUBLINGUAL PRN ×4 (00:31→20:00)
[2018-09-04] MEDS: NAPROXEN 250 MG TAB PO SCH ×3 (00:32→22:06)
[2018-09-04] MEDS: LORazepam 2 MG/ML INJ IV PRN ×4 (02:50→22:09)
[2018-09-04] MEDS: CYCLOBENZAPRINE 5 MG TAB PO PRN ×2 (07:54→11:45)
[2018-09-04] MEDS: cloNIDine HCL 0.1 MG TAB PO SCH ×3 (07:55→22:05)
[2018-09-04] MEDS: NICOTINE 14MG/24HR PATCH TRANSDERM SCH (07:55)
[2018-09-04] MEDS: PANTOPRAZOLE 40 MG TABLET PO SCH (07:55)
[2018-09-04] MEDS: HEPARIN SODIUM,PORCINE 5,000 UNIT/ML 1 ML VIAL SQ SCH ×2 (07:55→22:06)
[2018-09-04] MEDS: ALBUTEROL NEBULIZED 2.5 MG/3 ML INHALATION SCH ×4 (08:33→21:01)
[2018-09-04 09:36] LABS: HCT 39.5 % (39.0-53.0); HGB 12.1 gm/dL (13.0-17.5); MCH 30.6 pg (25.0-35.0); MCHC 30.5 g/dL (31.0-37.0); MCV 100.2 fL (80.0-100.0); Mean Platelet Volume 6.8; Platelet Count 398 k/uL (150-450); RBC 3.94 m/uL (4.30-5.90); RDW 13.7 % (11.5-15.5); WBC 8.5 k/uL (3.8-10.6)
[2018-09-04 09:46] LABS: Anion Gap 7 mmol/L; Blood Urea Nitrogen 33 mg/dL (9-20); Calcium 9.9 mg/dL (8.4-10.2); Carbon Dioxide 25 mmol/L (22-30); Chloride 105 mmol/L (98-107); Glucose 98 mg/dL (74-99); Potassium 5.4 mmol/L (3.5-5.1); Sodium 137 mmol/L (137-145)
[2018-09-04 10:49] LABS: Basophils # (M) 0.09 k/uL (0-0.2); Eosinophils # (M) 0.17 k/uL (0-0.7); Lymphocytes # (M) 2.98 k/uL (1.0-4.8); Neutrophils # (M) 4.68 k/uL (1.3-7.7); Neutrophils % (M) 55 %; Nucleated Red Blood Cells 0 /100 WBC (0-0); Total Cells Counted 100
[2018-09-04] MEDS: SODIUM CHLORIDE 0.9% 1,000 ML IV SCH ×2 (11:45→22:37)
[2018-09-04] MEDS: MULTIVITAMINS, THERA 1 EACH TAB PO SCH (13:15)
[2018-09-04] MEDS: FOLIC ACID 1 MG TAB PO SCH (13:15)
[2018-09-04] MEDS: THIAMINE 100 MG TAB PO SCH ×2 (13:15→17:15)
[2018-09-04] MEDS: traZODone HCL 50 MG TAB PO SCH (22:05)
--- NOTE | 2018-09-05 00:29 | P.PN ---
Subjective Progress Note Date: 09/04/18 Principal diagnosis: Acute delirium tremens Patient is a 42-year-old male with a known history of alcohol abuse with Hospital for acute delirium tremens. On 09/04/2018 Patient is still anxious and requiring IV Ativan. Denied any complaints of chest pain or shortness of breath. No nausea vomiting or abdominal pain. Tolerating oral diet. No fever no chills. Potassium 5.4 today. Current medications reviewed Objective - Vital Signs Vital signs: Vital Signs Temp 98.1 F 09/04/18 19:00 Pulse 76 09/04/18 19:00 Resp 17 09/04/18 19:00 BP 122/74 09/04/18 19:00 Pulse Ox 99 09/04/18 19:00 Intake & Output 09/04/18 09/04/18 09/05/18 06:59 18:59 06:59 Intake Total 800 Balance 800 Intake: Intake, IV Titration 800 Amount Sodium Chloride 0.9% 1, 800 000 ml @ 100 mls/hr IV . Q10H [facility] Rx#:[id number] Other: # Voids 4 3 # Bowel Movements 1 - Exam PHYSICAL EXAMINATION: Patient is lying in the bed comfortably, no acute distress, awake alert and oriented.. HEENT: Normocephalic. Neck is supple. Pupils reactive. Nostrils clear. Oral cavity is moist. Ears reveal no drainage. Neck reveals no JVD, carotid bruits, or thyromegaly. CHEST EXAMINATION: Trachea is central. Symmetrical expansion. Lung senior clear to auscultation and percussion. CARDIAC: Normal S1, S2 with no gallops. No murmurs ABDOMEN: Soft. Bowel sounds normal. No organomegaly. No abdominal bruits. Extremities: reveal no edema. No clubbing or cyanosis Neurologically awake, alert, oriented x3 with well-coordinated movements. No focal deficits noted Skin: No rash or skin lesions. Psychiatric: Coperative. Nonsuicidal. Anxious Musculoskeletal: No joint swelling or deformity. Normal range of motion. - Labs CBC & Chem 7: 09/04/18 08:22 09/04/18 08:22 Labs: Abnormal Lab Results - Last 24 Hours (Table) 09/04/18 09/04/18 Range/Units 08:22 08:22 RBC 3.94 L (4.30-5.90) m/uL Hgb 12.1 L (13.0-17.5) gm/dL MCV 100.2 H (80.0-100.0) fL MCHC 30.5 L (31.0-37.0) g/dL Potassium 5.4 H (3.5-5.1) mmol/L BUN 33 H (9-20) mg/dL Assessment and Plan Assessment: Acute alcohol withdrawal syndrome with delirium tremens Depression with suicidal ideation. Alcohol abuse Hypertension History of MRSA Anxiety/depression and panic disorder. History of nicotine dependence history of polysubstance abuse Plan: Patient will be continued on Ativan every 6 hourly when necessary for withdrawal symptoms. Started with Librium 20 mg 4 times a day. Continue with IV hydration and follow closely. Patient was seen by psychiatric and recommended to transfer to inpatient psychiatric unit when medically stable. Social work is following for placement. Time with Patient: Greater than 30
[2018-09-05] MEDS: CYCLOBENZAPRINE 5 MG TAB PO PRN ×3 (04:57→19:28)
[2018-09-05] MEDS: LORazepam 2 MG/ML INJ IV PRN ×2 (05:00→15:47)
[2018-09-05] MEDS: BUPRENORPHINE SUBLINGUAL PRN ×3 (07:39→20:06)
[2018-09-05] MEDS: PANTOPRAZOLE 40 MG TABLET PO SCH (07:39)
[2018-09-05] MEDS: NALOXONE SUBLINGUAL PRN ×3 (07:39→20:06)
[2018-09-05] MEDS: ALBUTEROL NEBULIZED 2.5 MG/3 ML INHALATION SCH ×4 (08:03→19:17)
[2018-09-05 09:21] LABS: Anion Gap 6 mmol/L; Blood Urea Nitrogen 27 mg/dL (9-20); Calcium 9.7 mg/dL (8.4-10.2); Carbon Dioxide 29 mmol/L (22-30); Chloride 104 mmol/L (98-107); Glucose 101 mg/dL (74-99); Potassium 4.8 mmol/L (3.5-5.1); Sodium 139 mmol/L (137-145)
[2018-09-05] MEDS: NAPROXEN 250 MG TAB PO SCH (09:28)
[2018-09-05] MEDS: cloNIDine HCL 0.1 MG TAB PO SCH ×2 (09:28→17:35)
[2018-09-05 09:30] LABS: Basophils # (A) 0.1 k/uL (0-0.2); Basophils % (A) 1 %; Eosinophils # (A) 0.4 k/uL (0-0.7); Eosinophils % (A) 4 %; HCT 38.2 % (39.0-53.0); Lymphocytes # (A) 2.4 k/uL (1.0-4.8); Lymphocytes % (A) 26 %; MCH 31.6 pg (25.0-35.0); MCHC 31.5 g/dL (31.0-37.0); MCV 100.1 fL (80.0-100.0); Mean Platelet Volume 6.7; Monocytes # (A) 0.6 k/uL (0-1.0); Monocytes % (A) 6 %; Neutrophils # (A) 5.4 k/uL (1.3-7.7); Neutrophils % (A) 59 %; Platelet Count 395 k/uL (150-450); RBC 3.82 m/uL (4.30-5.90); RDW 13.8 % (11.5-15.5); WBC 9.2 k/uL (3.8-10.6)
[2018-09-05] MEDS: NICOTINE 14MG/24HR PATCH TRANSDERM SCH (09:30)
[2018-09-05] MEDS: HEPARIN SODIUM,PORCINE 5,000 UNIT/ML 1 ML VIAL SQ SCH (09:30)
[2018-09-05] MEDS: FOLIC ACID 1 MG TAB PO SCH (12:07)
[2018-09-05] MEDS: MULTIVITAMINS, THERA 1 EACH TAB PO SCH (12:07)
[2018-09-05] MEDS: THIAMINE 100 MG TAB PO SCH ×2 (12:07→17:35)
[2018-09-05] MEDS: SODIUM CHLORIDE 0.9% 1,000 ML IV SCH ×2 (14:32→18:49)
[2018-09-05 16:16] VITALS: RESP 16
[2018-09-05 19:25] VITALS: BP 110/71; PULSE 78; TEMP 97.9
--- NOTE | 2018-09-06 23:37 | P.PN ---
Subjective Progress Note Date: 09/05/18 Principal diagnosis: Acute delirium tremens Patient is a 42-year-old male with a known history of alcohol abuse with Hospital for acute delirium tremens. On 09/04/2018 Patient is still anxious and requiring IV Ativan. Denied any complaints of chest pain or shortness of breath. No nausea vomiting or abdominal pain. Tolerating oral diet. No fever no chills. Potassium 5.4 today. 09/05/2018 Patient denied any complaints of chest pain or shortness of breath. Did not have to use IV Ativan. Continued on Librium. Currently medically stable to be discharged to inpatient psychiatric unit as per psychiatric recommendations. No fever no chills. Current medications reviewed Objective - Vital Signs Vital signs: Vital Signs Temp 98.3 F 09/05/18 07:06 Pulse 69 09/04/18 23:35 Resp 13 09/05/18 07:06 BP 127/80 09/05/18 07:06 Pulse Ox 96 09/05/18 07:06 Intake & Output 09/04/18 09/05/18 09/05/18 18:59 06:59 18:59 Intake Total 2560 Balance 2560 Intake: Intake, IV Titration 1600 Amount Sodium Chloride 0.9% 1, 1600 000 ml @ 100 mls/hr IV . Q10H LIDIA Rx#:[id number] Oral 960 Other: Voiding Method Toilet # Voids 4 3 3 # Bowel Movements 1 - Exam PHYSICAL EXAMINATION: Patient is lying in the bed comfortably, no acute distress, awake alert and oriented.. HEENT: Normocephalic. Neck is supple. Pupils reactive. Nostrils clear. Oral cavity is moist. Ears reveal no drainage. Neck reveals no JVD, carotid bruits, or thyromegaly. CHEST EXAMINATION: Trachea is central. Symmetrical expansion. Lung senior clear to auscultation and percussion. CARDIAC: Normal S1, S2 with no gallops. No murmurs ABDOMEN: Soft. Bowel sounds normal. No organomegaly. No abdominal bruits. Extremities: reveal no edema. No clubbing or cyanosis Neurologically awake, alert, oriented x3 with well-coordinated movements. No focal deficits noted Skin: No rash or skin lesions. Psychiatric: Coperative. Nonsuicidal. Anxious Musculoskeletal: No joint swelling or deformity. Normal range of motion. - Labs CBC & Chem 7: 09/05/18 08:15 09/05/18 08:15 Labs: Abnormal Lab Results - Last 24 Hours (Table) 09/05/18 09/05/18 Range/Units 08:15 08:15 RBC 3.82 L (4.30-5.90) m/uL Hgb 12.0 L (13.0-17.5) gm/dL Hct 38.2 L (39.0-53.0) % MCV 100.1 H (80.0-100.0) fL BUN 27 H (9-20) mg/dL Glucose 101 H (74-99) mg/dL Assessment and Plan Assessment: Acute alcohol withdrawal syndrome with delirium tremens Depression with suicidal ideation. Alcohol abuse Hypertension History of MRSA Anxiety/depression and panic disorder. History of nicotine dependence history of polysubstance abuse Plan: Patient will be continued on Librium 20 mg 4 times a day. We will decrease dose to 10 mg 4 times a day for alcohol withdrawal symptoms. Continue with IV hydration and follow closely. Patient was seen by psychiatric and recommended to transfer to inpatient psychiatric unit when medically stable. Social work is following for placement. Time with Patient: Greater than 30
--- NOTE | 2018-09-07 10:22 | CDI ---
Documentation Clarification Form Date: 09/07/18 From: Emeli Joe Phone: If you have a question regarding this query, please contact Dayna Berman at [phone] between 8am and 5pm. Admit Date: 09/01/2018 5:50:00 AM Patient Name: Alejandro Whitley Visit Number: [id number] Discharge Date: 09/05/2018 8:08:00 PM ATTENTION: The Clinical Documentation Specialists (CDI) and [employer] Coding Staff appreciate your assistance in clarifying documentation. Please respond to the clarification below the line at the bottom and electronically sign. The CDI & [employer] Coding staff will review the response and follow-up if needed. Please note: Queries are made part of the Legal Health Record. If you have any questions, please contact the author of this message via ITS. Dr. Shelly Coles Conflicting documentation has been found in the medical record: Psych consult documented alcohol dependence. You documented alcohol abuse History/Risk Factors: Patient has a history of depression, anxiety and has been excessively drinking alcohol. Clinical Indicators: Delirium tremens. Lab findings: CIWA score 14 Vital signs: . 98.4, P. 65, R. 14, BP 143/89 Treatment: CIWA protocol, IV fluids with multivitamin In your opinion, what is the most clinically appropriate diagnosis for this patient? Alcohol dependence Alcohol abuse Other explanation of clinical findings Unable to determine (no explanation for clinical findings) Alcohol dependence MTDD
== END 2018-09-05 20:08 | DRG 897 ==
LOC: 4SSUR 05:50
PROVIDERS: ADMIT Internal Medicine; ATTEND Internal Medicine
DX: F10.231 Alcohol dependence with withdrawal delirium (principal); R45.851 Suicidal ideations; F32.9 Major depressive disorder, single episode, unspecified; F41.0 Panic disorder [episodic paroxysmal anxiety]; D72.829 Elevated white blood cell count, unspecified; I10 Essential (primary) hypertension; Z86.14 Personal history of Methicillin resistant Staphylococcus aureus infection; Z87.891 Personal history of nicotine dependence; Z79.899 Other long term (current) drug therapy
CPT/HCPCS: 80048; 80320; 83735; 85025

== ENCOUNTER 2018-09-05 19:54 | Inpatient (IN) | payer MEDICAID ==
[2018-09-05] MEDS ORDERED: MAGNESIUM HYDROXIDE 2,400 MG/10 ML CUP PO PRN (20:49)
[2018-09-05] MEDS ORDERED: ZIPRASIDONE 20 MG VIAL IM PRN (20:49)
[2018-09-05] MEDS ORDERED: LORazepam 2 MG/ML INJ IM PRN (20:51)
[2018-09-05] MEDS: NICOTINE 14MG/24HR PATCH TRANSDERM SCH (21:34)
[2018-09-06] MEDS: LORazepam 1 MG TAB PO PRN ×2 (02:30→16:56)
[2018-09-06] MEDS: NICOTINE 14MG/24HR PATCH TRANSDERM SCH (08:33)
--- NOTE | 2018-09-06 10:26 | P.HP ---
Psychiatric H&P - . H&P Date: 09/06/18 History & Physical: Allergies Allergy/AdvReac Type Severity Reaction Status Date / Time No Known Allergies Allergy Verified 09/05/18 23:29 Vital Signs Temp 98.2 F 09/06/18 02:25 Pulse 73 09/06/18 02:25 Resp 14 09/06/18 02:25 BP 122/74 09/06/18 02:25 Pulse Ox 98 09/05/18 21:36 Intake & Output 09/05/18 09/06/18 09/06/18 18:59 06:59 18:59 Weight 63 kg Assessment and Plan Assessment: IDENTIFYING DATA: This patient is a 42-year-old male who was admitted to the mental health unit from the medical floor for acute suicidal ideation. HPI: The patient was seen in psychiatric consultation by me on 08/2018. He presented to the hospital initially and was found sleeping on a bench his alcohol level was 477. He was admitted to the emergency room and then admitted to the medical floor for acute alcohol withdrawal symptoms. As his CIWA scores were high he was admitted to the ICU. He then came to the behavioral health Floor after another admission and was transferred due to a high elevation in CIWA became stable on the medical floor and then transferred on 09/05/2018. When I met with him he was in acute alcohol withdrawal. He indicated he was suicidal and had plan of either overdosing on opiates or jumping into traffic. He states that his antidepressant medication Paxil was not working and felt even worse. His symptoms of depression had been worsening over 2 months. His primary care physician was prescribing Paxil BuSpar and trazodone. He has been excessively consuming alcohol and quantifies it as one and one half fifths a day of vodka. He also had opiates and marijuana in his system as well. He indicates that he is homeless and has been couch hopping. He reports feeling depressed sad hopeless tearful. No homicidal ideation. He is reporting auditory hallucinations in the form of shatter such as hearing children talked but he cannot make out any words. No command auditory hallucinations. He is endorsing no delusional thoughts. He states he is experiencing some visual hallucinations with the wall boarders moving. PAST PSYCHIATRIC HISTORY: The patient has had several inpatient admissions the last one on our mental health unit was July 2017 and prior to that April 2014. He reports over time he's been prescribed Remeron Seroquel Xanax Zoloft Ativan Klonopin Valium BuSpar Paxil trazodone. He states the Remeron helped with sleep in the past and he was given that while he was in correction but only for a brief time. He states trazodone causes vivid nightmares and he states Paxil seemed to worsen his depression. He has struggle with suicidal thoughts in the past but unknown if he's had any actual attempts. CHEMICAL DEPENDENCY HISTORY: Patient with current alcohol use of 1.5 pint daily. Has had periods of sobriety in the past. Reported withdrawal symptoms include tremors, seizures and hallucinations. Patient has also had a h/o heroin use disorder with last use being 5 years ago and has abused prescription opiates in the past. States that he experimented with cocaine ~10 yrs ago. Currently using MJ with last use 1 week ago. Will not give frequency of use but states that he plans to quit as he would like to obtain employment. Previous rehab at [facility] x 3, [facility] x 1 and [facility] x 1. He is on Suboxone SOCIAL HISTORY: The patient is a 42-year-old male. He has no children he is homeless. He has a high school education. He has 2 brothers one sister. No report of abuse history he has a history of 3 DUIs. Past Medical History Past Medical History: Hypertension Additional Past Medical History / Comment(s): ETOH abuse, alcohol withdrawal with seizure 2014, Pt states recently told he has a "black spot" he believes on L lung which showed on a recent cat scan done in [facility]-he was to follow up but did not, chronic back pain, broken rib, been hearing voices History of Any Multi-Drug Resistant Organisms: MRSA Year Discovered:: 2004 MDRO Source:: left antecubital space secondary to heroine use Past Surgical History: No Surgical Hx Reported Additional Past Surgical History / Comment(s): Nasal surgery at the age of 11 yrs, cyst removed from LAC. Past Anesthesia/Blood Transfusion Reactions: No Reported Reaction Past Psychological History: Anxiety, Depression, Panic Disorder Additional Psychological History / Comment(s): suicidal, homeless wanted to blow head off Smoking Status: Current every day smoker Past Alcohol Use History: Abuse, Daily, Heavy Additional Past Alcohol Use History / Comment(s): pt states drinks 1.5 5ths per day of vodka. He last drank last night. Pt states he last used IV heroin 3-4 yrs ago. Pt states he likes to smoke marijuana and if available, will smoke 3 joints a day. Past Drug Use History: None Reported, Marijuana Additional Drug Use History / Comment(s): See above. - Past Family History Father Additional Family Medical History / Comment(s): father and his brothers ETOH hx Mother Family Medical History: Cancer Additional Family Medical History / Comment(s): Mother of renal cancer at the age of 60yrs. Medications and Allergies Home Medications Medication Instructions Recorded Confirmed Type traZODone HCL [Desyrel] 150 mg PO HS #30 tab 08/01/17 08/22/18 Rx Albuterol Inhaler [Ventolin Hfa 2 puff INHALATION RT-QID 08/19/18 08/22/18 History Inhaler] Buprenorphine HCl/Naloxone HCl 1 tab SL TID 08/19/18 08/22/18 History [Zubsolv 5.7-1.4 mg Tablet Sl] Famotidine [Pepcid] 20 mg PO BID 08/19/18 08/22/18 History Naproxen [Naprosyn] 500 mg PO BID 08/19/18 08/22/18 History PARoxetine HCL [Paxil] 40 mg PO DAILY 08/19/18 08/22/18 History Ranitidine HCl 150 mg PO BID 08/19/18 08/22/18 History busPIRone HCL [Buspar] 15 mg PO BID 08/19/18 08/22/18 History Allergies Allergy/AdvReac Type Severity Reaction Status Date / Time No Known Allergies Allergy Verified 08/22/18 22:41 Musculoskeletal Examination - Abnormal/Involuntary Movements: [none] Strength: [greater than antigravity (greater than/equal to 3/5) in all extremities, weakness:] Muscle Tone: [no impairment Gait: [grossly normal Station: [grossly normal Mental Status Examination - General Appearance: [disheveled, casualappears older than stated age, Speech/Language: [ slow, monotone, expressive,soft Attitude/Behavior: [ guarded, irritable, withdrawn Mood: [ depressed 9 out of 10, anxious 9 out of 10, irritablefearful, hopelessness] Affect: [ flat, blunted constricted Orientation: [time, person, place situation] Thought Content: [racing thoughts and unable to focus and concentrate] Risk Factors: [He is suicidal (ideations, plan), and/or Homicidal (ideations, plan), other] Perception: [wnl, denies hallucinations (auditory, visual, tactile),] Thought Processes: [ concrete, circumstantial Concentration/Attention Span: [ impaired] [Per observation and interview with the patient] Recent Memory: [wnl Remote Memory: [wnl] [past events, as related history] Intelligence: [below average [based on history, based on vocabulary, syntax, grammar, and content] Judgement: [ fair] [per patient's behavior/history of present illness] Insight: [ fair] [understanding severity of illness/history of present illness] Admitting Diagnosis: [1. 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 Medical comorbidities including hypertension 3. No income homeless limited support] Patient Strengths - Able to vocalize needs: [x] Motivation, determination, readiness for change: [x] Patient Limitations: [medication, non-compliance, pathological/unsupported environment, no interests, intellectual impairment, complicated medical illness , llack of social supports] Initial Plan of Care: [Admitted on a formal voluntary due to his continued suicidal ideation to [address] [place] [address]. He be evaluated by medicine, psychiatry, nursing staff, social work and occupational therapy. He'll be integrated into a [facility] therapeutic environment and expected to take his medications as written and go to groups. He will be started on Effexor 37.5 mg XR and titrated to 300 mg for resolution of symptoms of anxiety depression. He also be started on Lamictal 25 mg 2 a titration of 200 mg for resolution of racing thoughts. He also be placed on Flexeril 10 mg by mouth daily at bedtime, and Mirapex 1 mg for restless leg syndrome and muscle spasms. He will not get his Suboxone-alicea on the unit. I do not feel he needs Suboxone. He will also be started on Wellbutrin 300 mg by mouth every morning and ReVia 50 mg by mouth daily at bedtime both are for his opiate addiction. Plan is to have him return to [facility] clean and sober and ready to do a 30 day program successfully. He is to avoid alcohol and opiates for his back pain is not severe in nature and should not have opiate substitutes opiates or other medication since he has a psychiatric history as well.] Estimated Length of Stay: [7 days] [facility] is [facility] will be transferred for further treatment for substance abuse therefore that's why I stopped his Suboxone so that he can go the program clean and sober and mentally stable. Prognosis: [guarded] Justification for Inpatient Hospitalization - [ agitation, anxiety, depression resulting in significant loss of functioning.] [Dangerous to self, others, or property with need for controlled environment.] [Emotional or behavioral conditions and complications requiring 24 hour medical and nursing care.] [Need for special drug therapy, or other therapeutic program requiring continuous hospitalization.] [Failure of social or occupational functioning.] [Inability to meet basic life and health needs.] (1) Major depressive disorder, recurrent severe without psychotic features Current Visit: Yes Status: Acute Priority: Medium Code(s): F33.2 - MAJOR DEPRESSV DISORDER, RECURRENT SEVERE W/O PSYCH FEATURES SNOMED Code(s): 98187814 Time with Patient: Greater than 30
[2018-09-06] MEDS: ACETAMINOPHEN TAB 325 MG TAB PO PRN (16:56)
[2018-09-06] MEDS ORDERED: lamoTRIgine 25 MG TAB PO SCH (21:00)
[2018-09-06] MEDS ORDERED: VENLAFAXINE HCL ER 37.5 MG CAP PO SCH (21:00)
[2018-09-06] MEDS ORDERED: PRAMIPEXOLE 0.5 MG TAB PO SCH (21:00)
[2018-09-06] MEDS: MELOXICAM 7.5 MG TAB PO SCH (21:44)
[2018-09-06] MEDS: CYCLOBENZAPRINE 10 MG TAB PO SCH (21:44)
[2018-09-06] MEDS: NALTREXONE HCL 50 MG TAB PO SCH ×2 (21:44→21:48)
--- NOTE | 2018-09-06 23:42 | P.MDCNMH ---
History of Present Illness H&P Date: 09/06/18 Chief Complaint: Alcohol withdrawal symptoms and polysubstance abuse Patient is a 42-year-old male with a known history of hypertension, alcohol abuse, history of alcohol withdrawal seizures and also history of IVDU with hemorrhoid and nicotine addiction as well as polysubstance abuse was initially admitted to hospital for acute alcohol withdrawals and delirium tremens. Patient was followed in the general medical floor and was transferred to inpatient psychiatric unit due to suicidal ideation and acute psychosis. Currently patient denied any complaints of chest pain or shortness of breath. No fever no chills. Says that he is feeling anxious otherwise no nausea vomiting or abdominal pain no diarrhea or dysuria. No cough or sputum production. Review of Systems Constitutional: Patient denies any fever or chills . No generalized weakness or weight loss. Abdomen: Patient denied nausea vomiting and diarrhea and abdominal pain. Cardiovascular: Patient denies any chest pain or short of breath no palpitations. Respiratory: patient denied any cough is from production. No shortness of breath Neurologic: Patient denied any numbness or tingling headache. Musculoskeletal: Patient denies any complaints of joint swelling or deformity. Skin: Negative Psychiatric: Anxious. Endocrine: No heat or cold intolerance. No recent weight gain. Genitourinary: No dysuria or hematuria. All other 14 point ROS negative except the above Past Medical History Past Medical History: Hypertension Additional Past Medical History / Comment(s): ETOH abuse, alcohol withdrawal with seizure 2014, Pt states recently told he has a "black spot" he believes on L lung which showed on a recent cat scan done in [facility]-he was to follow up but did not, chronic back pain, broken rib History of Any Multi-Drug Resistant Organisms: MRSA Date of last positivie culture/infection: 2004 MDRO Source:: left antecubital space secondary to heroin use Past Surgical History: No Surgical Hx Reported Additional Past Surgical History / Comment(s): Nasal surgery at the age of 11 yrs, cyst removed from LAC. Past Anesthesia/Blood Transfusion Reactions: No Reported Reaction Past Psychological History: Anxiety, Depression, Panic Disorder Additional Psychological History / Comment(s): suicidal, homeless wanted to blow head off Smoking Status: Current every day smoker Past Alcohol Use History: Abuse, Daily, Heavy Additional Past Alcohol Use History / Comment(s): pt states drinks 1.5 5ths per day of vodka. He last drank on tuesday. Pt states he last used IV heroin 3-4 yrs ago. Pt states he likes to smoke marijuana and if available, smoked MJ last Tuesday Past Drug Use History: Marijuana Additional Drug Use History / Comment(s): See above. - Past Family History Father Additional Family Medical History / Comment(s): father and his brothers ETOH hx Mother Family Medical History: Cancer Additional Family Medical History / Comment(s): Mother of renal cancer at the age of 60yrs. Medications and Allergies Home Medications Medication Instructions Recorded Confirmed Type Naproxen [Naprosyn] 500 mg PO BID 08/19/18 09/05/18 History Albuterol Inhaler [Ventolin Hfa 2 puff INHALATION RT-QID #1 puff 08/25/18 Rx Inhaler] Famotidine [Pepcid] 20 mg PO BID #60 tab 08/25/18 09/05/18 Rx Nicotine 14Mg/24Hr Patch [Habitrol] 1 patch TRANSDERM DAILY #10 patch 08/25/18 09/05/18 Rx Buprenorphine HCl/Naloxone HCl 1 tab SUBLINGUAL TID PRN 08/31/18 09/05/18 History [Zubsolv 5.7-1.4 mg Tablet Sl] Ranitidine HCl [Zantac] 150 mg PO BID 08/31/18 09/05/18 History traZODone HCL 150 mg PO HS 08/31/18 09/05/18 History Allergies Allergy/AdvReac Type Severity Reaction Status Date / Time No Known Allergies Allergy Verified 09/05/18 23:29 Physical Exam Vitals: Vital Signs Temp Pulse Resp BP Pulse Ox 09/06/18 02:25 98.2 F 73 14 122/74 09/05/18 21:36 98.0 F 86 16 106/68 98 PHYSICAL EXAMINATION: Patient is lying in the bed comfortably, no acute distress, awake alert and oriented.. HEENT: Normocephalic. Neck is supple. Pupils reactive. Nostrils clear. Oral cavity is moist. Ears reveal no drainage. Neck reveals no JVD, carotid bruits, or thyromegaly. CHEST EXAMINATION: Trachea is central. Symmetrical expansion. Lung senior clear to auscultation and percussion. CARDIAC: Normal S1, S2 with no gallops. No murmurs ABDOMEN: Soft. Bowel sounds normal. No organomegaly. No abdominal bruits. Extremities: reveal no edema. No clubbing or cyanosis Neurologically awake, alert, oriented x3 with well-coordinated movements. No focal deficits noted Skin: No rash or skin lesions. Psychiatric: Coperative. Nonsuicidal. Seems anxious. Musculoskeletal: No joint swelling or deformity. Normal range of motion. Cranial Nerve Examination - Cranial Nerves Cranial Nerve I- Olfactory: Intact Cranial Nerve II- Optic: Intact Cranial Nerve III- Oculomotor: Intact Cranial Nerve IV- Trochlear: Intact Cranial Nerve V- Trigeminal: Intact Cranial Nerve - Abducens: Intact Cranial Nerve VII- Facial: Intact Cranial Nerve VIII- Auditory: Intact Cranial Nerve IX- Glossopharyngeal: Intact Cranial Nerve X- Vagus: Intact Cranial Nerve XI- Accessory: Intact Cranial Nerve XII- Hypoglossal: Intact Assessment and Plan Assessment: Acute psychosis NOS Acute alcohol withdrawal syndrome with delirium tremens. Improved now. Depression with suicidal ideation. History of IVDU and polysubstance abuse Alcohol abuse Hypertension History of alcohol withdrawal seizures History of MRSA Anxiety/depression and panic disorder. History of nicotine dependence history of polysubstance abuse Plan: Patient will be continued on current psychiatric management. Otherwise continue the current management and follow CBC and CMP tomorrow. Replace electrolyte lites and follow closely. Further recommendations based on clinical course. We will continue to follow. Thank you for your consult. Time with Patient: Greater than 30
[2018-09-07] MEDS: ACETAMINOPHEN TAB 325 MG TAB PO PRN ×2 (00:41→16:30)
[2018-09-07] MEDS: LORazepam 1 MG TAB PO PRN ×3 (00:41→16:31)
[2018-09-07] MEDS: MELOXICAM 7.5 MG TAB PO SCH ×2 (08:47→20:48)
[2018-09-07] MEDS: NICOTINE 14MG/24HR PATCH TRANSDERM SCH (08:47)
[2018-09-07] MEDS: buPROPion XL 300 MG TAB.ER.24H PO SCH (08:47)
[2018-09-07 09:53] LABS: Basophils # (A) 0.2 k/uL (0-0.2); Basophils % (A) 2 %; Eosinophils # (A) 0.4 k/uL (0-0.7); Eosinophils % (A) 4 %; HCT 42.8 % (39.0-53.0); HGB 14.2 gm/dL (13.0-17.5); Lymphocytes # (A) 2.9 k/uL (1.0-4.8); Lymphocytes % (A) 28 %; MCH 32.6 pg (25.0-35.0); MCHC 33.2 g/dL (31.0-37.0); MCV 98.2 fL (80.0-100.0); Mean Platelet Volume 6.8; Monocytes # (A) 0.7 k/uL (0-1.0); Monocytes % (A) 6 %; Neutrophils # (A) 5.4 k/uL (1.3-7.7); Neutrophils % (A) 53 %; Platelet Count 406 k/uL (150-450); RBC 4.36 m/uL (4.30-5.90); RDW 13.5 % (11.5-15.5); WBC 10.2 k/uL (3.8-10.6)
[2018-09-07 10:06] LABS: ALT 53 U/L (21-72); AST 32 U/L (17-59); Albumin 4.3 g/dL (3.5-5.0); Alkaline Phosphatase 65 U/L (38-126); Anion Gap 11 mmol/L; Blood Urea Nitrogen 23 mg/dL (9-20); Calcium 10.6 mg/dL (8.4-10.2); Carbon Dioxide 28 mmol/L (22-30); Chloride 100 mmol/L (98-107); Glucose 104 mg/dL (74-99); Potassium 4.8 mmol/L (3.5-5.1); Sodium 139 mmol/L (137-145); Total Bilirubin 0.3 mg/dL (0.2-1.3); Total Protein 7.2 g/dL (6.3-8.2)
--- NOTE | 2018-09-07 12:45 | P.PN ---
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 Tends to isolate. Admits to suicidal thoughts.Isolates to room.. Sleeps late everyday. He states he is fatigued. Objective - Vital Signs Vital signs: Vital Signs Temp 98.3 F 09/07/18 06:18 Pulse 108 H 09/07/18 08:53 Resp 20 09/07/18 08:53 BP 117/78 09/07/18 08:53 Pulse Ox 98 09/05/18 21:36 Intake & Output 09/06/18 09/07/18 09/07/18 18:59 06:59 18:59 Weight 67.132 kg - Labs CBC & Chem 7: 09/07/18 09:34 09/07/18 09:34 Labs: Abnormal Lab Results - Last 24 Hours (Table) 09/07/18 Range/Units 09:34 BUN 23 H (9-20) mg/dL Glucose 104 H (74-99) mg/dL Calcium 10.6 H (8.4-10.2) mg/dL Assessment and Plan Assessment: IDENTIFYING DATA: This patient is a 42-year-old male who was admitted to the mental health unit from the medical floor for acute suicidal ideation. Mental Status Examination - General Appearance: [disheveled, casual appears older than stated age, Speech/Language: [ slow, monotone, expressive,soft Attitude/Behavior: [ guarded, irritable, withdrawn Mood: [ depressed 9 out of 10, anxious 9 out of 10, irritable,fearful, hopelessness] Affect: [ flat, blunted constricted Orientation: [time, person, place situation] Thought Content: [racing thoughts and unable to focus and concentrate] Risk Factors: [He remains suicidal (ideations, plan), and/or Homicidal ( ideations, plan), other] Perception: [wnl, denies hallucinations (auditory, visual, tactile),] Thought Processes: [ concrete, circumstantial Concentration/Attention Span: [ impaired] [Per observation and interview with the patient] Recent Memory: [wnl Remote Memory: [wnl] [past events, as related history] Intelligence: [below average [based on history, based on vocabulary, syntax, grammar, and content] Judgement: [ fair] [per patient's behavior/history of present illness] Insight: [ fair] [understanding severity of illness/history of present illness] Admitting Diagnosis: [1. 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 Medical comorbidities including hypertension 3. No income homeless limited support] Patient Strengths - Able to vocalize needs: [x] Motivation, determination, readiness for change: [x] Patient Limitations: [medication, non-compliance, pathological/unsupported environment, no interests, intellectual impairment, complicated medical illness , llack of social supports] Initial Plan of Care: [Admitted on a formal voluntary due to his continued suicidal ideation to [address] [facility]. He be evaluated by medicine, psychiatry, nursing staff, social work and occupational therapy. He'll be integrated into a hadley milieu therapeutic environment and expected to take his medications as written and go to groups. He will be started on Effexor 37.5 mg XR and titrated to 300 mg for resolution of symptoms of anxiety depression. He also be started on Lamictal 25 mg 2 a titration of 200 mg for resolution of racing thoughts. He also be placed on Flexeril 10 mg by mouth daily at bedtime, and Mirapex 1 mg for restless leg syndrome and muscle spasms. He will not get his Suboxone-alicea on the unit. I do not feel he needs Suboxone. He will also be started on Wellbutrin 300 mg by mouth every morning and ReVia 50 mg by mouth daily at bedtime both are for his opiate addiction (he did not take as ReVia last night and has he feared he would interact with his sinus Suboxone 2 days ago ). Plan is to have him return to [facility] and sober and ready to do a 30 day program successfully. He is to avoid alcohol and opiates for his back pain is not severe in nature and should not have opiate substitutes opiates or other medication since he has a psychiatric history as well. 09/07/2008 his Effexor was increased to 75 mg XL by mouth daily at bedtime and Lamictal 50 mg by mouth daily at bedtime. Had to wake him up and encourage him to eat and go to groups. Not very motivated. He did not take his ReVia since it was too close to his Suboxone 2 days ago. He tends to isolate and is encouraged to get up and eat meals and participate in groups.] Estimated Length of Stay: [6 days] Initial Discharge Plan: [facility]home[facility] for further treatment for substance abuse therefore that's why I stopped his Suboxone so that he can go the program clean and sober and mentally stable. (1) Major depressive disorder, recurrent severe without psychotic features Current Visit: Yes Status: Acute Priority: Medium Code(s): F33.2 - MAJOR DEPRESSV DISORDER, RECURRENT SEVERE W/O PSYCH FEATURES SNOMED Code(s): 46789094 Time with Patient: Less than 30
[2018-09-07] MEDS: CYCLOBENZAPRINE 10 MG TAB PO SCH (20:48)
[2018-09-07] MEDS: NALTREXONE HCL 50 MG TAB PO SCH (20:50)
[2018-09-07] MEDS: PRAMIPEXOLE 1 MG TAB PO SCH (20:51)
[2018-09-07] MEDS ORDERED: lamoTRIgine 25 MG TAB PO SCH (21:00)
[2018-09-07] MEDS ORDERED: VENLAFAXINE HCL ER 75 MG CAP PO SCH (21:00)
[2018-09-07] MEDS ORDERED: LORazepam 1 MG TAB PO STA (21:13)
[2018-09-07] MEDS: cloNIDine HCL 0.2 MG TAB PO SCH (21:27)
[2018-09-08] MEDS: LORazepam 1 MG TAB PO PRN ×2 (00:44→11:57)
[2018-09-08] MEDS: NICOTINE 14MG/24HR PATCH TRANSDERM SCH (08:05)
[2018-09-08] MEDS: MELOXICAM 7.5 MG TAB PO SCH ×2 (08:06→20:13)
[2018-09-08] MEDS: buPROPion XL 300 MG TAB.ER.24H PO SCH (08:07)
[2018-09-08] MEDS: cloNIDine HCL 0.2 MG TAB PO SCH ×3 (08:10→20:13)
--- NOTE | 2018-09-08 10:06 | P.PN ---
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 Tends to isolate. Admits to suicidal thoughts.Isolates to room.. Sleeps late everyday. He states he is fatigued. 09/08/2014 Feel nervous and less worried today but tired and fatigued. Patient tends to isolate wakes up around in has lunch and then engages in groups. Again admits to suicidal ideation Objective - Vital Signs Vital signs: Vital Signs Temp 97.7 F 09/08/18 06:30 Pulse 101 H 09/08/18 08:11 Resp 16 09/08/18 06:30 BP 99/61 09/08/18 08:11 Pulse Ox 98 09/05/18 21:36 - Labs CBC & Chem 7: 09/07/18 09:34 09/07/18 09:34 Labs: Abnormal Lab Results - Last 24 Hours (Table) 09/07/18 Range/Units 09:34 BUN 23 H (9-20) mg/dL Glucose 104 H (74-99) mg/dL Calcium 10.6 H (8.4-10.2) mg/dL Assessment and Plan Assessment: IDENTIFYING DATA: This patient is a 42-year-old male who was admitted to the mental health unit from the medical floor for acute suicidal ideation. Mental Status Examination - General Appearance: [disheveled, casual appears older than stated age, Speech/Language: [ slow, monotone, expressive,soft Attitude/Behavior: [ guarded, irritable, withdrawn Mood: [ depressed 9 out of 10, anxious 9 out of 10, irritable,fearful, hopelessness] Affect: [ flat, blunted constricted Orientation: [time, person, place situation] Thought Content: [racing thoughts and unable to focus and concentrate] Risk Factors: [He remains suicidal (ideations, plan), and/or Homicidal ( ideations, plan), other] Perception: [wnl, denies hallucinations (auditory, visual, tactile),] Thought Processes: [ concrete, circumstantial Concentration/Attention Span: [ impaired] [Per observation and interview with the patient] Recent Memory: [wnl Remote Memory: [wnl] [past events, as related history] Intelligence: [below average [based on history, based on vocabulary, syntax, grammar, and content] Judgement: [ fair] [per patient's behavior/history of present illness] Insight: [ fair] [understanding severity of illness/history of present illness] Admitting Diagnosis: [1. 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 Medical comorbidities including hypertension 3. No income homeless limited support] Plan of Care: [Admitted on a formal voluntary due to his continued suicidal ideation to [address] [place] [address]. He be evaluated by medicine, psychiatry, nursing staff, social work and occupational therapy. He'll be integrated into a hadley milieu therapeutic environment and expected to take his medications as written and go to groups. He will be started on Effexor 37.5 mg XR and titrated to 300 mg for resolution of symptoms of anxiety depression. He also be started on Lamictal 25 mg 2 a titration of 200 mg for resolution of racing thoughts. He also be placed on Flexeril 10 mg by mouth daily at bedtime, and Mirapex 1 mg for restless leg syndrome and muscle spasms. He will not get his Suboxone-alicea on the unit. I do not feel he needs Suboxone. He will also be started on Wellbutrin 300 mg by mouth every morning and ReVia 50 mg by mouth daily at bedtime both are for his opiate addiction (he did not take as ReVia last night and has he feared he would interact with his sinus Suboxone 2 days ago ). Plan is to have him return to [place] clean and sober and ready to do a 30 day program successfully. He is to avoid alcohol and opiates for his back pain is not severe in nature and should not have opiate substitutes opiates or other medication since he has a psychiatric history as well. 09/07/2008 his Effexor was increased to 150 mg XL (09/08/2018) by mouth daily at bedtime and Lamictal 75 mg (09/08/2018) by mouth daily at bedtime. Had to wake him up and encourage him to eat and go to groups. Not very motivated. He did not take his ReVia since it was too close to his Suboxone 2 days ago. He tends to isolate and is encouraged to get up and eat meals and participate in groups.] Estimated Length of Stay: [5 days] (1) Major depressive disorder, recurrent severe without psychotic features Current Visit: Yes Status: Acute Priority: Medium Code(s): F33.2 - MAJOR DEPRESSV DISORDER, RECURRENT SEVERE W/O PSYCH FEATURES SNOMED Code(s): 13520815 Time with Patient: Less than 30
[2018-09-08] MEDS: PALIPERIDONE 3 MG TAB.ER.24 PO SCH (20:13)
[2018-09-08] MEDS: PRAMIPEXOLE 1 MG TAB PO SCH (20:13)
[2018-09-08] MEDS: VENLAFAXINE HCL ER 150 MG CAP PO SCH (20:14)
[2018-09-08] MEDS: NALTREXONE HCL 50 MG TAB PO SCH (20:14)
[2018-09-08] MEDS: CYCLOBENZAPRINE 10 MG TAB PO SCH (20:15)
[2018-09-09] MEDS: LORazepam 1 MG TAB PO PRN ×3 (01:00→22:19)
[2018-09-09] MEDS: NICOTINE 14MG/24HR PATCH TRANSDERM SCH (07:41)
[2018-09-09] MEDS: buPROPion XL 300 MG TAB.ER.24H PO SCH (08:24)
[2018-09-09] MEDS: lamoTRIgine 25 MG TAB PO SCH (08:24)
[2018-09-09] MEDS: MELOXICAM 7.5 MG TAB PO SCH ×2 (08:24→21:10)
[2018-09-09] MEDS: cloNIDine HCL 0.2 MG TAB PO SCH ×2 (08:24→21:10)
[2018-09-09] MEDS ORDERED: VENLAFAXINE HCL ER 37.5 MG CAP PO ONE (20:56)
[2018-09-09] MEDS ORDERED: PALIPERIDONE 3 MG TAB.ER.24 PO ONE (20:56)
[2018-09-09] MEDS ORDERED: LORazepam 1 MG TAB ONE (20:56)
[2018-09-09] MEDS ORDERED: MELOXICAM 7.5 MG TAB ONE (20:56)
[2018-09-09] MEDS ORDERED: PRAMIPEXOLE 0.5 MG TAB ONE (20:56)
[2018-09-09] MEDS: VENLAFAXINE HCL ER 150 MG CAP PO SCH (21:10)
[2018-09-09] MEDS: PALIPERIDONE 3 MG TAB.ER.24 PO SCH (21:10)
[2018-09-09] MEDS: PRAMIPEXOLE 1 MG TAB PO SCH (21:10)
[2018-09-09] MEDS: CYCLOBENZAPRINE 10 MG TAB PO SCH (21:10)
[2018-09-09] MEDS: NALTREXONE HCL 50 MG TAB PO SCH (21:11)
[2018-09-10] MEDS: lamoTRIgine 25 MG TAB PO SCH (08:00)
[2018-09-10] MEDS: NICOTINE 14MG/24HR PATCH TRANSDERM SCH (08:00)
[2018-09-10] MEDS: cloNIDine HCL 0.2 MG TAB PO SCH ×2 (08:00→21:04)
[2018-09-10] MEDS: buPROPion XL 300 MG TAB.ER.24H PO SCH (08:01)
[2018-09-10] MEDS: MELOXICAM 7.5 MG TAB PO SCH ×2 (08:01→21:04)
[2018-09-10] MEDS: LORazepam 1 MG TAB PO PRN ×2 (14:37→23:27)
--- NOTE | 2018-09-10 15:26 | P.PN ---
Progress Note - Text Progress Note Date: 09/10/18 IDENTIFICATION DATA: 42-year male admitted to the mental health unit from the medical floor for acute suicidal ideation. INTERVAL HISTORY: Patient reports he hasnt slept yesterday and complains of worsening auditory and visual hallucinations. He reports talking to imaginary people inside his room all day long. He reports feeling very anxious . He reports having suicidal thoughts that come and go. He stated he takes 150mg of trazadone every night to help him with sleep. He claims to have taken his last dose four days ago. MENTAL STATUS EXAMINATION: Patient appeared in marginal grooming and hygiene. He is pleasant and co-operative. HIS speech is pressured. Her mood is reported as anxious and irritable. affect appropriate. The patient is alert and oriented 4 and in no apparent distress. Reports auditory and visual hallucinations. Denies paranoia. Reports fleeting suicidal ideations. Denies homicidal ideation. Insight and judgment are improving. ASSESSMENT AND PLAN: Will start him on trazadone 100mg po qhs for insomnia. Consider increasing invega if his halluciantions doesnt subside even after improvement of sleep. Continue current medications Monitor for safety and symptoms
[2018-09-10] MEDS: NALTREXONE HCL 50 MG TAB PO SCH (21:04)
[2018-09-10] MEDS: VENLAFAXINE HCL ER 150 MG CAP PO SCH (21:05)
[2018-09-10] MEDS: PRAMIPEXOLE 1 MG TAB PO SCH (21:05)
[2018-09-10] MEDS: PALIPERIDONE 3 MG TAB.ER.24 PO SCH (21:05)
[2018-09-10] MEDS: CYCLOBENZAPRINE 10 MG TAB PO SCH (21:07)
[2018-09-10] MEDS ORDERED: traZODone HCL 100 MG TAB PO SCH (22:00)
[2018-09-11] MEDS ORDERED: ZIPRASIDONE 20 MG CAP PO STA (01:55)
[2018-09-11] MEDS: MAG HYDROX/AL HYDROX/SIMETH 30 ML CUP PO PRN ×2 (03:27→14:54)
[2018-09-11] MEDS: NICOTINE 14MG/24HR PATCH TRANSDERM SCH (09:10)
[2018-09-11] MEDS: buPROPion XL 300 MG TAB.ER.24H PO SCH (09:10)
[2018-09-11] MEDS: MELOXICAM 7.5 MG TAB PO SCH ×2 (09:10→21:40)
[2018-09-11] MEDS: lamoTRIgine 25 MG TAB PO SCH (09:10)
[2018-09-11] MEDS: cloNIDine HCL 0.2 MG TAB PO SCH ×2 (09:11→21:44)
--- NOTE | 2018-09-11 11:39 | P.PN ---
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 Tends to isolate. Admits to suicidal thoughts.Isolates to room.. Sleeps late everyday. He states he is fatigued. 09/08/2014 Feel nervous and less worried today but tired and fatigued. Patient tends to isolate wakes up around in has lunch and then engages in groups. Again admits to suicidal ideation 09/11/2018: Remains tired and fatigued but stated over the last 3 days is had auditory and visual hallucinations. He admits that he still has suicidal ideation and made 1 group today. Objective - Vital Signs Vital signs: Vital Signs Temp 98.7 F 09/11/18 01:57 Pulse 129 H 09/11/18 09:13 Resp 20 09/11/18 09:13 BP 114/60 09/11/18 09:13 Pulse Ox 98 09/05/18 21:36 Intake & Output 09/10/18 09/11/18 09/11/18 18:59 06:59 18:59 Weight 65.3 kg - Labs CBC & Chem 7: 09/07/18 09:34 09/07/18 09:34 Assessment and Plan Assessment: IDENTIFYING DATA: This patient is a 42-year-old male who was admitted to the mental health unit from the medical floor for acute suicidal ideation. Mental Status Examination - General Appearance: [disheveled, casual appears older than stated age, Speech/Language: [ slow, monotone, expressive,soft Attitude/Behavior: [ guarded, irritable, withdrawn Mood: [ depressed 9 out of 10, anxious 9 out of 10, irritable,fearful, hopelessness] Affect: [ flat, blunted constricted Orientation: [time, person, place situation] Thought Content: [racing thoughts and unable to focus and concentrate] Risk Factors: [He remains suicidal (ideations, plan), and/or Homicidal ( ideations, plan), other] Perception: [wnl, admits to hallucinations (auditory, visual, tactile),] Thought Processes: [ concrete, circumstantial Concentration/Attention Span: [ impaired] [Per observation and interview with the patient] Recent Memory: [wnl Remote Memory: [wnl] [past events, as related history] Intelligence: [below average [based on history, based on vocabulary, syntax, grammar, and content] Judgement: [ fair] [per patient's behavior/history of present illness] Insight: [ fair] [understanding severity of illness/history of present illness] Admitting Diagnosis: [1. 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 Medical comorbidities including hypertension 3. No income homeless limited support] Plan of Care: [Admitted on a formal voluntary due to his continued suicidal ideation to [facility]. He be evaluated by medicine, psychiatry, nursing staff, social work and occupational therapy. He'll be integrated into a hadley milieu therapeutic environment and expected to take his medications as written and go to groups. He will be started on Effexor 37.5 mg XR and titrated to 300 mg for resolution of symptoms of anxiety depression. He also be started on Lamictal 25 mg 2 a titration of 200 mg for resolution of racing thoughts. He also be placed on Flexeril 10 mg by mouth daily at bedtime, and Mirapex 1 mg for restless leg syndrome and muscle spasms. He will not get his Suboxone-alicea on the unit. I do not feel he needs Suboxone. He will also be started on Wellbutrin 300 mg by mouth every morning and ReVia 50 mg by mouth daily at bedtime both are for his opiate addiction (he did not take as ReVia last night and has he feared he would interact with his sinus Suboxone 2 days ago ). Plan is to have him return to [facility] and sober and ready to do a 30 day program successfully. He is to avoid alcohol and opiates for his back pain is not severe in nature and should not have opiate substitutes opiates or other medication since he has a psychiatric history as well. 09/07/2018 his Effexor was increased to 150 mg XL (09/08/2018) by mouth daily at bedtime and Lamictal 100 mg (09/11/2018) by mouth daily at bedtime. Had to wake him up and encourage him to eat and go to groups. Not very motivated. Increased Invega 6 mg by mouth daily at bedtime ( 09/11/2018 He did not take his ReVia since it was too close to his Suboxone 2 days ago. He tends to isolate and is encouraged to get up and eat meals and participate in groups.] Estimated Length of Stay: [5 days] (1) Major depressive disorder, recurrent severe without psychotic features Current Visit: Yes Status: Acute Priority: Medium Code(s): F33.2 - MAJOR DEPRESSV DISORDER, RECURRENT SEVERE W/O PSYCH FEATURES SNOMED Code(s): 21003328 Time with Patient: Less than 30
[2018-09-11] MEDS: LORazepam 1 MG TAB PO PRN ×2 (14:54→22:56)
[2018-09-11] MEDS ORDERED: lamoTRIgine 100 MG TAB PO SCH (21:00)
[2018-09-11] MEDS ORDERED: PALIPERIDONE 6 MG TAB.ER.24 PO SCH (21:00)
[2018-09-11] MEDS: NALTREXONE HCL 50 MG TAB PO SCH (21:39)
[2018-09-11] MEDS: CYCLOBENZAPRINE 10 MG TAB PO SCH (21:39)
[2018-09-11] MEDS: VENLAFAXINE HCL ER 150 MG CAP PO SCH (21:39)
[2018-09-11] MEDS: PRAMIPEXOLE 1 MG TAB PO SCH (21:41)
[2018-09-11] MEDS: traZODone HCL 50 MG TAB PO SCH (21:41)
[2018-09-12] MEDS: buPROPion XL 300 MG TAB.ER.24H PO SCH (08:46)
[2018-09-12] MEDS: cloNIDine HCL 0.2 MG TAB PO SCH ×2 (08:46→22:03)
[2018-09-12] MEDS: MELOXICAM 7.5 MG TAB PO SCH ×2 (08:46→22:04)
[2018-09-12] MEDS: NICOTINE 14MG/24HR PATCH TRANSDERM SCH (08:46)
[2018-09-12] MEDS: LORazepam 1 MG TAB PO PRN ×2 (08:49→16:58)
--- NOTE | 2018-09-12 11:22 | P.PN ---
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 Tends to isolate. Admits to suicidal thoughts.Isolates to room.. Sleeps late everyday. He states he is fatigued. 09/08/2014 Feel nervous and less worried today but tired and fatigued. Patient tends to isolate wakes up around in has lunch and then engages in groups. Again admits to suicidal ideation 09/11/2018: Remains tired and fatigued but stated over the last 3 days is had auditory and visual hallucinations. He admits that he still has suicidal ideation and made 1 group today. 09/12/2018: Patient still tends to isolate at times. He has less auditory and visual hallucinations but still present. He still admits to being suicidal on and off at times. Chart reviewed team that meeting this morning and social work is setting a pack To [facility] for rehab. Discussed with patient that he needs to be not suicidal before he can go to [facility]. Objective - Vital Signs Vital signs: Vital Signs Temp 98.8 F 09/12/18 06:56 Pulse 113 H 09/12/18 08:51 Resp 16 09/12/18 08:51 BP 126/82 09/12/18 08:51 Pulse Ox 98 09/05/18 21:36 - Labs CBC & Chem 7: 09/07/18 09:34 09/07/18 09:34 Assessment and Plan Assessment: IDENTIFYING DATA: This patient is a 42-year-old male who was admitted to the mental health unit from the medical floor for acute suicidal ideation. Mental Status Examination - General Appearance: [disheveled, casual appears older than stated age, Speech/Language: [ slow, monotone, expressive,soft Attitude/Behavior: [ guarded, irritable, withdrawn Mood: [ depressed 9 out of 10, anxious 9 out of 10, irritable,fearful, hopelessness] Affect: [ flat, blunted constricted Orientation: [time, person, place situation] Thought Content: [racing thoughts and unable to focus and concentrate] Risk Factors: [He remains suicidal (ideations, plan), and/or Homicidal ( ideations, plan), other] Perception: [wnl, admits to hallucinations (auditory, visual, tactile),] Thought Processes: [ concrete, circumstantial Concentration/Attention Span: [ impaired] [Per observation and interview with the patient] Recent Memory: [wnl Remote Memory: [wnl] [past events, as related history] Intelligence: [below average [based on history, based on vocabulary, syntax, grammar, and content] Judgement: [ fair] [per patient's behavior/history of present illness] Insight: [ fair] [understanding severity of illness/history of present illness] Admitting Diagnosis: [1. 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 Medical comorbidities including hypertension 3. No income homeless limited support] Plan of Care: [Admitted on a formal voluntary due to his continued suicidal ideation to [address] [place] [address]. He be evaluated by medicine, psychiatry, nursing staff, social work and occupational therapy. He'll be integrated into a hadley milieu therapeutic environment and expected to take his medications as written and go to groups. He will be started on Effexor 37.5 mg XR and titrated to 300 mg for resolution of symptoms of anxiety depression. He also be started on Lamictal 25 mg 2 a titration of 200 mg for resolution of racing thoughts. He also be placed on Flexeril 10 mg by mouth daily at bedtime, and Mirapex 1 mg for restless leg syndrome and muscle spasms. He will not get his Suboxone-alicea on the unit. I do not feel he needs Suboxone. He will also be started on Wellbutrin 300 mg by mouth every morning and ReVia 50 mg by mouth daily at bedtime both are for his opiate addiction (he did not take as ReVia last night and has he feared he would interact with his sinus Suboxone 2 days ago ). Plan is to have him return to [facility] clean and sober and ready to do a 30 day program successfully. He is to avoid alcohol and opiates for his back pain is not severe in nature and should not have opiate substitutes opiates or other medication since he has a psychiatric history as well. 09/07/2018 his Effexor was increased to 150 mg XL (09/08/2018) by mouth daily at bedtime and Lamictal 200 mg (09/12/2018) by mouth daily at bedtime. Had to wake him up and encourage him to eat and go to groups. Not very motivated. Increased Invega 9 mg by mouth daily at bedtime ( 09/12/2018 He did not take his ReVia since it was too close to his Suboxone 2 days ago. He tends to isolate and is encouraged to get up and eat meals and participate in groups.] Estimated Length of Stay: [4 days] (1) Major depressive disorder, recurrent severe without psychotic features Current Visit: Yes Status: Acute Priority: Medium Code(s): F33.2 - MAJOR DEPRESSV DISORDER, RECURRENT SEVERE W/O PSYCH FEATURES SNOMED Code(s): 46734791 Time with Patient: Less than 30
[2018-09-12] MEDS: PANTOPRAZOLE 40 MG TABLET PO SCH (16:58)
[2018-09-12] MEDS: CYCLOBENZAPRINE 5 MG TAB PO SCH (22:03)
[2018-09-12] MEDS: traZODone HCL 50 MG TAB PO SCH (22:03)
[2018-09-12] MEDS: VENLAFAXINE HCL ER 150 MG CAP PO SCH (22:03)
[2018-09-12] MEDS: lamoTRIgine 100 MG TAB PO SCH (22:04)
[2018-09-12] MEDS: PALIPERIDONE 3 MG TAB.ER.24 PO SCH (22:04)
[2018-09-12] MEDS: PRAMIPEXOLE 1 MG TAB PO SCH (22:04)
[2018-09-13] MEDS: LORazepam 1 MG TAB PO PRN ×3 (05:34→21:41)
[2018-09-13] MEDS: NICOTINE 14MG/24HR PATCH TRANSDERM SCH (08:00)
[2018-09-13] MEDS: MELOXICAM 7.5 MG TAB PO SCH ×2 (08:00→21:36)
[2018-09-13] MEDS: CYCLOBENZAPRINE 5 MG TAB PO SCH ×2 (08:00→21:35)
[2018-09-13] MEDS: buPROPion XL 300 MG TAB.ER.24H PO SCH (08:00)
[2018-09-13] MEDS: PANTOPRAZOLE 40 MG TABLET PO SCH ×2 (08:00→17:22)
[2018-09-13] MEDS: cloNIDine HCL 0.2 MG TAB PO SCH ×3 (08:00→23:48)
--- NOTE | 2018-09-13 10:18 | P.PN ---
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 Tends to isolate. Admits to suicidal thoughts.Isolates to room.. Sleeps late everyday. He states he is fatigued. 09/08/2014 Feel nervous and less worried today but tired and fatigued. Patient tends to isolate wakes up around in has lunch and then engages in groups. Again admits to suicidal ideation 09/11/2018: Remains tired and fatigued but stated over the last 3 days is had auditory and visual hallucinations. He admits that he still has suicidal ideation and made 1 group today. 09/12/2018: Patient still tends to isolate at times. He has less auditory and visual hallucinations but still present. He still admits to being suicidal on and off at times. Chart reviewed team that meeting this morning and social work is setting a pack To [facility] for rehab. Discussed with patient that he needs to be not suicidal before he can go to [facility]. 09/13/2018: Patient states that he has no auditory or visual hallucinations and he does not feel suicidal. He is more awake and alert and asked him to go to group which he didn't Objective - Vital Signs Vital signs: Vital Signs Temp 98.2 F 09/13/18 05:30 Pulse 107 H 09/13/18 08:06 Resp 18 09/13/18 08:06 BP 91/61 09/13/18 08:06 Pulse Ox 98 09/05/18 21:36 - Labs CBC & Chem 7: 09/07/18 09:34 09/07/18 09:34 Assessment and Plan Assessment: IDENTIFYING DATA: This patient is a 42-year-old male who was admitted to the mental health unit from the medical floor for acute suicidal ideation. Mental Status Examination - General Appearance: [, casual appears older than stated age, Speech/Language: [expressive,soft Attitude/Behavior: [Within normaleuthymic Mood: [ depressed 5 out of 10, anxious 4 out of 10, irritable,fearful, hopelessness] Affect: [ flat, blunted constricted Orientation: [time, person, place situation] Thought Content: [racing thoughts and unable to focus and concentrate] Risk Factors: [He is not suicidal (ideations, plan), and/or Homicidal (ideations , plan), other] Perception: [wnl, denies to hallucinations (auditory, visual, tactile),] Thought Processes: [ concrete, circumstantial Concentration/Attention Span: Within normal] [Per observation and interview with the patient] Recent Memory: [wnl Remote Memory: [wnl] [past events, as related history] Intelligence: [below average [based on history, based on vocabulary, syntax, grammar, and content] Judgement: [ fair] [per patient's behavior/history of present illness] Insight: [ fair] [understanding severity of illness/history of present illness] Admitting Diagnosis: [1. 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 Medical comorbidities including hypertension 3. No income homeless limited support] Plan of Care: [Admitted on a formal voluntary due to his continued suicidal ideation to [address] [place] [address]. He be evaluated by medicine, psychiatry, nursing staff, social work and occupational therapy. He'll be integrated into a hadley milieu therapeutic environment and expected to take his medications as written and go to groups. He will be started on Effexor 37.5 mg XR and titrated to 300 mg for resolution of symptoms of anxiety depression. He also be started on Lamictal 25 mg 2 a titration of 200 mg for resolution of racing thoughts. He also be placed on Flexeril 10 mg by mouth daily at bedtime, and Mirapex 1 mg for restless leg syndrome and muscle spasms. He will not get his Suboxone-alicea on the unit. I do not feel he needs Suboxone. He will also be started on Wellbutrin 300 mg by mouth every morning and ReVia 50 mg by mouth daily at bedtime both are for his opiate addiction (he did not take as ReVia last night and has he feared he would interact with his sinus Suboxone 2 days ago ). Plan is to have him return to [facility] clean and sober and ready to do a 30 day program successfully. He is to avoid alcohol and opiates for his back pain is not severe in nature and should not have opiate substitutes opiates or other medication since he has a psychiatric history as well. 09/07/2018 his Effexor was increased to 150 mg XL (09/08/2018) by mouth daily at bedtime and Lamictal 200 mg (09/12/2018) by mouth daily at bedtime. Had to wake him up and encourage him to eat and go to groups. Not very motivated. Increased Invega 9 mg by mouth daily at bedtime ( 09/12/2018 He did not take his ReVia since it was too close to his Suboxone 2 days ago. He tends to isolate and is encouraged to get up and eat meals and participate in groups.] Estimated Length of Stay: [4 days] (1) Major depressive disorder, recurrent severe without psychotic features Current Visit: Yes Status: Acute Priority: Medium Code(s): F33.2 - MAJOR DEPRESSV DISORDER, RECURRENT SEVERE W/O PSYCH FEATURES SNOMED Code(s): 97495089 Time with Patient: Less than 30
[2018-09-13] MEDS: lamoTRIgine 100 MG TAB PO SCH (21:35)
[2018-09-13] MEDS: traZODone HCL 50 MG TAB PO SCH (21:37)
[2018-09-13] MEDS: PRAMIPEXOLE 1 MG TAB PO SCH (21:37)
[2018-09-13] MEDS: PALIPERIDONE 3 MG TAB.ER.24 PO SCH (21:37)
[2018-09-13] MEDS: VENLAFAXINE HCL ER 150 MG CAP PO SCH (21:37)
[2018-09-14] MEDS: NICOTINE 14MG/24HR PATCH TRANSDERM SCH (07:38)
[2018-09-14] MEDS: PANTOPRAZOLE 40 MG TABLET PO SCH ×2 (07:38→17:16)
[2018-09-14] MEDS: cloNIDine HCL 0.2 MG TAB PO SCH ×2 (07:39→21:16)
[2018-09-14] MEDS: CYCLOBENZAPRINE 5 MG TAB PO SCH ×2 (07:39→21:16)
[2018-09-14] MEDS: buPROPion XL 300 MG TAB.ER.24H PO SCH (07:39)
[2018-09-14] MEDS: MELOXICAM 7.5 MG TAB PO SCH ×2 (07:39→21:16)
[2018-09-14] MEDS: LORazepam 1 MG TAB PO PRN ×2 (09:13→17:16)
--- NOTE | 2018-09-14 11:33 | P.PN ---
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 Tends to isolate. Admits to suicidal thoughts.Isolates to room.. Sleeps late everyday. He states he is fatigued. 09/08/2014 Feel nervous and less worried today but tired and fatigued. Patient tends to isolate wakes up around in has lunch and then engages in groups. Again admits to suicidal ideation 09/11/2018: Remains tired and fatigued but stated over the last 3 days is had auditory and visual hallucinations. He admits that he still has suicidal ideation and made 1 group today. 09/12/2018: Patient still tends to isolate at times. He has less auditory and visual hallucinations but still present. He still admits to being suicidal on and off at times. Chart reviewed team that meeting this morning and social work is setting a pack To [facility] for rehab. Discussed with patient that he needs to be not suicidal before he can go to [facility]. 09/13/2018: Patient states that he has no auditory or visual hallucinations and he does not feel suicidal. He is more awake and alert and asked him to go to group which he didn't Objective - Vital Signs Vital signs: Vital Signs Temp 98.5 F 09/13/18 23:57 Pulse 116 H 09/13/18 23:57 Resp 16 09/13/18 23:57 BP 108/68 09/13/18 23:57 Pulse Ox 98 09/05/18 21:36 - Labs CBC & Chem 7: 09/07/18 09:34 09/07/18 09:34 Assessment and Plan Assessment: IDENTIFYING DATA: This patient is a 42-year-old male who was admitted to the mental health unit from the medical floor for acute suicidal ideation. Mental Status Examination - General Appearance: [, casual appears older than stated age, Speech/Language: [expressive,soft Attitude/Behavior: [Within normaleuthymic Mood: [ depressed 5 out of 10, anxious 4 out of 10, irritable,fearful, hopelessness] Affect: [ flat, blunted constricted Orientation: [time, person, place situation] Thought Content: [racing thoughts and unable to focus and concentrate] Risk Factors: [He is not suicidal (ideations, plan), and/or Homicidal (ideations , plan), other] Perception: [wnl, denies to hallucinations (auditory, visual, tactile),] Thought Processes: [ concrete, circumstantial Concentration/Attention Span: Within normal] [Per observation and interview with the patient] Recent Memory: [wnl Remote Memory: [wnl] [past events, as related history] Intelligence: [below average [based on history, based on vocabulary, syntax, grammar, and content] Judgement: [ fair] [per patient's behavior/history of present illness] Insight: [ fair] [understanding severity of illness/history of present illness] Admitting Diagnosis: [1. 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 Medical comorbidities including hypertension 3. No income homeless limited support] Plan of Care: [Admitted on a formal voluntary due to his continued suicidal ideation to [address] [place] [address]. He be evaluated by medicine, psychiatry, nursing staff, social work and occupational therapy. He'll be integrated into a had[facility] milieu therapeutic environment and expected to take his medications as written and go to groups. He will be started on Effexor 37.5 mg XR and titrated to 300 mg for resolution of symptoms of anxiety depression. He also be started on Lamictal 25 mg 2 a titration of 200 mg for resolution of racing thoughts. He also be placed on Flexeril 10 mg by mouth daily at bedtime, and Mirapex 1 mg for restless leg syndrome and muscle spasms. He will not get his Suboxone-alicea on the unit. I do not feel he needs Suboxone. He will also be started on Wellbutrin 300 mg by mouth every morning and ReVia 50 mg by mouth daily at bedtime both are for his opiate addiction (he did not take as ReVia last night and has he feared he would interact with his sinus Suboxone 2 days ago ). Plan is to have him return to [facility] clean and sober and ready to do a 30 day program successfully. He is to avoid alcohol and opiates for his back pain is not severe in nature and should not have opiate substitutes opiates or other medication since he has a psychiatric history as well. 09/07/2018 his Effexor was increased to 150 mg XL (09/08/2018) by mouth daily at bedtime and Lamictal 200 mg (09/12/2018) by mouth daily at bedtime. Had to wake him up and encourage him to eat and go to groups. Not very motivated. Increased Invega 9 mg by mouth daily at bedtime ( 09/12/2018 He did not take his ReVia since it was too close to his Suboxone 2 days ago. He tends to isolate and is encouraged to get up and eat meals and participate in groups.] Estimated Length of Stay: [4 days] (1) Major depressive disorder, recurrent severe without psychotic features Current Visit: Yes Status: Acute Priority: Medium Code(s): F33.2 - MAJOR DEPRESSV DISORDER, RECURRENT SEVERE W/O PSYCH FEATURES SNOMED Code(s): 16948319 Time with Patient: Less than 30
[2018-09-14] MEDS: lamoTRIgine 100 MG TAB PO SCH (21:16)
[2018-09-14] MEDS: PRAMIPEXOLE 1 MG TAB PO SCH (21:17)
[2018-09-14] MEDS: traZODone HCL 50 MG TAB PO SCH (21:17)
[2018-09-14] MEDS: PALIPERIDONE 3 MG TAB.ER.24 PO SCH (21:17)
[2018-09-14] MEDS: VENLAFAXINE HCL ER 150 MG CAP PO SCH (21:19)
[2018-09-15] MEDS: LORazepam 1 MG TAB PO PRN (05:07)
[2018-09-15 05:09] VITALS: TEMP 98.9
[2018-09-15] MEDS: cloNIDine HCL 0.2 MG TAB PO SCH (08:27)
[2018-09-15] MEDS: NICOTINE 14MG/24HR PATCH TRANSDERM SCH (08:27)
[2018-09-15] MEDS: CYCLOBENZAPRINE 5 MG TAB PO SCH (08:27)
[2018-09-15] MEDS: PANTOPRAZOLE 40 MG TABLET PO SCH (08:27)
[2018-09-15] MEDS: buPROPion XL 300 MG TAB.ER.24H PO SCH (08:27)
[2018-09-15] MEDS: MELOXICAM 7.5 MG TAB PO SCH (08:27)
[2018-09-15 08:36] VITALS: BP 112/70; PULSE 121; RESP 20
--- NOTE | 2018-09-15 09:59 | P.DS ---
Providers Date of admission: 09/05/18 20:18 Expected date of discharge: 09/15/18 Attending physician: Jacoby Montilla DO Consults: 09/05/18 21:24 Consult Physician Routine Consulting Provider: Katharine Ambriz Consult Reason/Comments: H&P and medical Do you want consulting provider notified?: Yes Primary care physician: Tangela Santos - Discharge Diagnosis(es) (1) Major depressive disorder, recurrent severe without psychotic features IDENTIFYING DATA: This patient is a 42-year-old male who was admitted to the mental health unit from the medical floor for acute suicidal ideation. HPI: The patient was seen in psychiatric consultation by me on 08/2018. He presented to the hospital initially and was found sleeping on a bench his alcohol level was 477. He was admitted to the emergency room and then admitted to the medical floor for acute alcohol withdrawal symptoms. As his CIWA scores were high he was admitted to the ICU. He then came to the behavioral health Floor after another admission and was transferred due to a high elevation in CIWA became stable on the medical floor and then transferred on 09/05/2018. When I met with him he was in acute alcohol withdrawal. He indicated he was suicidal and had plan of either overdosing on opiates or jumping into traffic. He states that his antidepressant medication Paxil was not working and felt even worse. His symptoms of depression had been worsening over 2 months. His primary care physician was prescribing Paxil BuSpar and trazodone. He has been excessively consuming alcohol and quantifies it as one and one half fifths a day of vodka. He also had opiates and marijuana in his system as well. He indicates that he is homeless and has been couch hopping. He reports feeling depressed sad hopeless tearful. No homicidal ideation. He is reporting auditory hallucinations in the form of shatter such as hearing children talked but he cannot make out any words. No command auditory hallucinations. He is endorsing no delusional thoughts. He states he is experiencing some visual hallucinations with the wall boarders moving. PAST PSYCHIATRIC HISTORY: The patient has had several inpatient admissions the last one on our mental health unit was July 2017 and prior to that April 2014. He reports over time he's been prescribed Remeron Seroquel Xanax Zoloft Ativan Klonopin Valium BuSpar Paxil trazodone. He states the Remeron helped with sleep in the past and he was given that while he was in prison but only for a brief time. He states trazodone causes vivid nightmares and he states Paxil seemed to worsen his depression. He has struggle with suicidal thoughts in the past but unknown if he's had any actual attempts. CHEMICAL DEPENDENCY HISTORY: Patient with current alcohol use of 1.5 pint daily. Has had periods of sobriety in the past. Reported withdrawal symptoms include tremors, seizures and hallucinations. Patient has also had a h/o heroin use disorder with last use being 5 years ago and has abused prescription opiates in the past. States that he experimented with cocaine ~10 yrs ago. Currently using MJ with last use 1 week ago. Will not give frequency of use but states that he plans to quit as he would like to obtain employment. Previous rehab at [facility] x 3, [facility] x 1 and [facility] x 1. He is on Suboxone Current Visit: Yes Status: Acute Priority: Medium Hospital Course: Plan of Care: [Admitted on a formal voluntary due to his continued suicidal ideation to [facility] [place] [facility]. He be evaluated by medicine, psychiatry, nursing staff, social work and occupational therapy. He'll be integrated into a hadley milieu therapeutic environment and expected to take his medications as written and go to groups. He will be started on Effexor 37.5 mg XR and titrated to 300 mg for resolution of symptoms of anxiety depression. He also be started on Lamictal 25 mg 2 a titration of 200 mg for resolution of racing thoughts. He also be placed on Flexeril 10 mg by mouth daily at bedtime, and Mirapex 1 mg for restless leg syndrome and muscle spasms. He will not get his Suboxone-alicea on the unit. I do not feel he needs Suboxone. He will also be started on Wellbutrin 300 mg by mouth every morning and ReVia 50 mg by mouth daily at bedtime both are for his opiate addiction (he did not take as ReVia last night and has he feared he would interact with his sinus Suboxone 2 days ago ). Plan is to have him return to [facility] clean and sober and ready to do a 30 day program successfully. He is to avoid alcohol and opiates for his back pain is not severe in nature and should not have opiate substitutes opiates or other medication since he has a psychiatric history as well. 09/07/2018 his Effexor was increased to 150 mg XL (09/08/2018) by mouth daily at bedtime and Lamictal 200 mg (09/12/2018) by mouth daily at bedtime. Had to wake him up and encourage him to eat and go to groups. Not very motivated. Increased Invega 9 mg by mouth daily at bedtime ( 09/12/2018 He did not take his ReVia since it was too close to his Suboxone 2 days ago. He tends to isolate and is encouraged to get up and eat meals and participate in groups.] Mental status examination time of discharge: The patient presents alert, pleasant, and cooperative. There calmly seated without any agitated behavior. He reports that [his] mood is good. Affect is congruent and euthymic. [He] deny having any suicidal or homicidal ideation intent or plan. [He] denies any auditory or visual hallucinations. There is no evidence of any delusional thought content. [His] thought process is linear and goal-directed. [His] speech is fluent and nonpressured. [His] memory and concentration is grossly intact for the purposes of this session. Patient Condition at Discharge: Stable Plan - Discharge Summary Discharge Rx Participant: Yes New Discharge Prescriptions: New buPROPion XL [Wellbutrin XL] 300 mg PO DAILY 30 Days #30 tab.er.24h cloNIDine HCL [Catapres] 0.2 mg PO BID 30 Days #60 tab Cyclobenzaprine [Flexeril] 5 mg PO BID 30 Days #60 tab lamoTRIgine [LaMICtal] 200 mg PO 2100 30 Days #60 tab Meloxicam [Mobic] 7.5 mg PO BID 30 Days #60 tab Paliperidone [Invega] 9 mg PO 2099 30 Days #90 tab.er.24 Pramipexole [Mirapex] 1 mg PO 2099 30 Days #30 tab Venlafaxine HCl ER [Effexor XR] 150 mg PO 2099 30 Days #30 cap.er.24h Continue Albuterol Inhaler [Ventolin Hfa Inhaler] 2 puff INHALATION RT-QID #1 puff traZODone HCL 150 mg PO HS 30 Days #30 tablet Discontinued Naproxen [Naprosyn] 500 mg PO BID Nicotine 14Mg/24Hr Patch [Habitrol] 1 patch TRANSDERM DAILY #10 patch Famotidine [Pepcid] 20 mg PO BID #60 tab Ranitidine HCl [Zantac] 150 mg PO BID Buprenorphine HCl/Naloxone HCl [Zubsolv 5.7-1.4 mg Tablet Sl] 1 tab SUBLINGUAL TID PRN PRN Reason: ADDICTION Discharge Medication List Albuterol Inhaler [Ventolin Hfa Inhaler] 2 puff INHALATION RT-QID #1 puff [Rx] Cyclobenzaprine [Flexeril] 5 mg PO BID 30 Days #60 tab 09/15/18 [Rx] Meloxicam [Mobic] 7.5 mg PO BID 30 Days #60 tab 09/15/18 [Rx] Paliperidone [Invega] 9 mg PO 2100 30 Days #90 tab.er.24 09/15/18 [Rx] Pramipexole [Mirapex] 1 mg PO 2100 30 Days #30 tab 09/15/18 [Rx] Venlafaxine HCl ER [Effexor XR] 150 mg PO 2100 30 Days #30 cap.er.24h 09/15/18 [ Rx] buPROPion XL [Wellbutrin XL] 300 mg PO DAILY 30 Days #30 tab.er.24h 09/15/18 [Rx ] cloNIDine HCL [Catapres] 0.2 mg PO BID 30 Days #60 tab 09/15/18 [Rx] lamoTRIgine [LaMICtal] 200 mg PO 2100 30 Days #60 tab 09/15/18 [Rx] traZODone HCL 150 mg PO HS 30 Days #30 tablet 09/15/18 [Rx] [facility] 9:30 am (Int[facility]) Servando Velasco MD [STAFF PHYSICIAN] - 1 Week Patient Instructions/Handouts: How to Stop Smoking (DC) Activity/Diet/Wound Care/Special Instructions: Keep your follow up appointments as scheduled. Continue to take medications as prescribed. When you need refills on your medications contact your primary care physician or outpatient psychiatrist. Refrain from using street drugs or alcohol. No access to guns or weapons. If symptoms return or get worse call crisis line at or go to nearest emergency room for evaluation. Discharge Disposition: HOME SELF-CARE
== END 2018-09-15 12:53 | disposition home or self-care (01) | DRG 885 ==
LOC: 3MHU 20:18
PROVIDERS: ADMIT Psychiatry & Neurology Psychiatry; ATTEND Psychiatry & Neurology Psychiatry
DX: F33.2 Major depressive disorder, recurrent severe without psychotic features (principal); F10.239 Alcohol dependence with withdrawal, unspecified; F10.251 Alcohol dependence with alcohol-induced psychotic disorder with hallucinations; F11.20 Opioid dependence, uncomplicated; R45.851 Suicidal ideations; F12.10 Cannabis abuse, uncomplicated; F17.210 Nicotine dependence, cigarettes, uncomplicated; F41.0 Panic disorder [episodic paroxysmal anxiety]; G25.81 Restless legs syndrome; I10 Essential (primary) hypertension; Y90.8 Blood alcohol level of 240 mg/100 ml or more; Z59.0 Homelessness; Z79.899 Other long term (current) drug therapy; Z80.51 Family history of malignant neoplasm of kidney; Z91.19 Patient's noncompliance with other medical treatment and regimen; M54.9 Dorsalgia, unspecified; G89.29 Other chronic pain; Z86.14 Personal history of Methicillin resistant Staphylococcus aureus infection; Z71.6 Tobacco abuse counseling
CPT/HCPCS: 80053; 85025

== ENCOUNTER 2021-05-09 10:24 | Emergency (ER) | payer BC, OTHER ==
[2021-05-09 10:41] VITALS: BP 96/65; PULSE 72; RESP 18; TEMP 98
[2021-05-09] MEDS ORDERED: KETOROLAC 15 MG/ML 1 ML VIAL IM STA (10:48)
--- NOTE | 2021-05-09 11:36 | XR ---
EXAMINATION TYPE: XR ribs bilat w pa chest xray DATE OF EXAM: 05/09/2021 COMPARISON: NONE HISTORY: Pain TECHNIQUE: Single view of the chest 8 views of the bilateral ribs are submitted. FINDINGS: The lungs are clear. No Evidence for pneumothorax. No evidence for focal contusion. Medi astinal structures are midline. Evaluation of the ribs demonstrates vague lucency through left rib # 10. Nondisplaced fracture difficult to exclude. The remaining ribs are grossly intact. IMPRESSION: I cannot exclude nondisplaced fracture left rib #10
--- NOTE | 2021-05-09 11:52 | ED ---
Fall HPI - General Chief Complaint: Fall Stated Complaint: Fall/Lt Rib Pain Time Seen by Provider: 05/09/21 10:48 Source: patient, RN notes reviewed Mode of arrival: ambulatory - History of Present Illness Initial Comments: Patient is a 45-year-old male that presents to emergency department complaining of left-sided rib pain. He notes that he fell backwards last night. He denied hitting his head or losing consciousness. He notes that he has had fractured ribs in the past and this feels very similar. He denied any other issues or complaints. He did have tenderness over his lower ribs with a abrasion and bruising over it. He denied chest pain shortness of breath headache nausea vomiting diarrhea constipation fever fatigue chills. - Related Data Previous Rx's Medication Instructions Recorded Albuterol Inhaler (Mhu) [Ventolin 2 puff INHALATION RT-QID #1 puff 08/25/18 Hfa Inhaler (Mhu)] Cyclobenzaprine [Flexeril] 5 mg PO BID 30 Days #60 tab 09/15/18 Meloxicam [Mobic] 7.5 mg PO BID 30 Days #60 tab 09/15/18 Paliperidone [Invega] 9 mg PO 2100 30 Days #90 tab.er.24 09/15/18 Pramipexole [Mirapex] 1 mg PO 2100 30 Days #30 tab 09/15/18 Venlafaxine HCl ER [Effexor XR] 150 mg PO 2100 30 Days #30 09/15/18 cap.er.24h buPROPion XL [Wellbutrin XL] 300 mg PO DAILY 30 Days #30 09/15/18 tab.er.24h cloNIDine HCL [Catapres] 0.2 mg PO BID 30 Days #60 tab 09/15/18 lamoTRIgine [LaMICtal] 200 mg PO 2100 30 Days #60 tab 09/15/18 traZODone HCL 150 mg PO HS 30 Days #30 tablet 09/15/18 Allergies Allergy/AdvReac Type Severity Reaction Status Date / Time No Known Allergies Allergy Verified 05/09/21 10:37 Review of Systems ROS Statement: Those systems with pertinent positive or pertinent negative responses have been documented in the HPI. ROS Other: All systems not noted in ROS Statement are negative. Past Medical History Past Medical History: Hypertension Additional Past Medical History / Comment(s): ETOH abuse, alcohol withdrawal with seizure 2014, Pt states recently told he has a "black spot" he believes on L lung which showed on a recent cat scan done in [facility]-he was to follow up but did not, chronic back pain, broken rib History of Any Multi-Drug Resistant Organisms: MRSA Date of last positivie culture/infection: 2004 MDRO Source:: left antecubital space secondary to heroin use Past Surgical History: No Surgical Hx Reported Additional Past Surgical History / Comment(s): Nasal surgery at the age of 11 yrs, cyst removed from LAC. Past Anesthesia/Blood Transfusion Reactions: No Reported Reaction Past Psychological History: Anxiety, Depression, Panic Disorder Smoking Status: Current every day smoker Past Alcohol Use History: None Reported, Abuse, Daily, Heavy Past Drug Use History: Marijuana - Past Family History Father Additional Family Medical History / Comment(s): father and his brothers ETOH hx Mother Family Medical History: Cancer Additional Family Medical History / Comment(s): Mother of renal cancer at the age of 60yrs. General Exam Limitations: no limitations General appearance: alert, in no apparent distress Head exam: Present: atraumatic, normocephalic, normal inspection Eye exam: Present: normal appearance, PERRL, EOMI. Absent: scleral icterus, conjunctival injection, periorbital swelling Neck exam: Present: normal inspection Respiratory exam: Present: normal lung sounds bilaterally. Absent: respiratory distress, wheezes, rales, rhonchi, stridor Cardiovascular Exam: Present: regular rate, normal rhythm, normal heart sounds. Absent: systolic murmur, diastolic murmur, rubs, gallop, clicks Extremities exam: Present: normal inspection, full ROM, normal capillary refill. Absent: tenderness, pedal edema, joint swelling, calf tenderness Back exam: Present: normal inspection, tenderness (Left lower ribs, abrasion and ecchymosis noted.) Neurological exam: Present: alert, oriented X3 Psychiatric exam: Present: normal affect, normal mood Skin exam: Present: warm, dry, intact, normal color. Absent: rash Course Vital Signs 05/09/21 10:37 Temperature 98 F Pulse Rate 72 Respiratory 18 Rate Blood Pressure 96/65 O2 Sat by Pulse 98 Oximetry Medical Decision Making - Medical Decision Making 45-year-old male complaining of left-sided rib pain. X-ray of the ribs and chest, 15 g of Toradol ordered. X-ray shows a nondisplaced left 10th rib fracture. Patient be given work note. Case discussed with Dr. Jalloh, patient discharge home with follow-up primary care. - Radiology Data Radiology results: report reviewed, image reviewed Rib and chest x-ray: The lungs are clear. No evidence of pneumothorax. No evidence for focal contusion. Mediastinal structures are midline. Evaluation of the ribs demonstrated vague lucency through the left rib #10. Nondisplaced fracture difficult to exclude. The remaining ribs are grossly intact. Disposition Clinical Impression: Left rib fracture Disposition: HOME SELF-CARE Condition: Stable Instructions (If sedation given, give patient instructions): Fall Prevention (ED) Additional Instructions: Please return to the Emergency Department if symptoms worsen or any other concerns. Follow-up with primary care 1-2 days. Continue take deep breaths struck the day to ensure healthy lungs. Take Tylenol Motrin as needed. Is patient prescribed a controlled substance at d/c from ED?: No Referrals: Danielle Honeycutt MD [Primary Care Provider] - 1-2 days Time of Disposition: 11:51
== END 2021-05-09 12:19 | disposition home or self-care (01) ==
LOC: EC 10:24
DX: S22.32XA Fracture of one rib, left side, initial encounter for closed fracture (principal); I10 Essential (primary) hypertension; F17.200 Nicotine dependence, unspecified, uncomplicated; F32.9 Major depressive disorder, single episode, unspecified; F41.0 Panic disorder [episodic paroxysmal anxiety]; F12.90 Cannabis use, unspecified, uncomplicated; F10.10 Alcohol abuse, uncomplicated; W19.XXXA Unspecified fall, initial encounter
CPT/HCPCS: 71111; 99283; 96372; J1885